=== PATIENT | male | born 1940 | race Hispanic/Latino ===

== ENCOUNTER 2016-11-24 12:11 | Emergency (ER) | payer MEDICARE, BC ==
[2016-11-24 12:12] VITALS: BMI 23.6
[2016-11-24 13:42] LABS: HEMOGLOBIN 13.4 g/dL (12.0-18.0); MEAN CELL VOLUME 92.8 fL (80.0-94.0); MEAN CORPUSCULAR HEMOGLOBIN 30.6 pg (27.0-31.0); MEAN CORPUSCULAR HGB CONC 32.9 g/dL (33.0-37.0); MEAN PLATELET VOLUME 8.2 fL (7.2-11.7); RBC 4.4 Mil/uL (4.40-5.90); RED CELL DISTRIBUTION WIDTH 12.6 % (11.5-14.5); WHITE BLOOD COUNT 8.1 K/uL (4.8-10.8)
[2016-11-24 13:52] LABS: ALBUMIN 3.7 g/dL (3.5-5.0)
[2016-11-24 13:55] LABS: AST/SGOT 21 U/L (17-59); GFR AFRICAN-AMERICAN > 60; GFR NON-AFRICAN AMERICAN > 60
[2016-11-24 13:56] LABS: ALB/GLOB RATIO 1.1 (1.0-2.1); ALT/SGPT 21 U/L (21-72); BLOOD UREA NITROGEN 18 mg/dL (9-20); CALCIUM 8.9 mg/dl (8.6-10.4)
--- NOTE | 2016-11-24 14:07 | CT ---
PROCEDURE: CT HEAD WITHOUT CONTRAST. HISTORY: R/O HEAD INJURY COMPARISON: None available. TECHNIQUE: Axial computed tomography images were obtained through the head/brain without intravenous contrast. Radiation dose: Total exam DLP = 1008.66 mGy-cm. This CT exam was performed using one or more of the following dose reduction techniques: Automated exposure control, adjustment of the mA and/or kV according to patient size, and/or use of iterative reconstruction technique. FINDINGS: HEMORRHAGE: No intracranial hemorrhage. BRAIN: There is focal cystic encephalomalacia in the right posterior frontal and parietal lobes with volume loss. There are mild chronic microangiopathic changes. There are old infarctions in the right basal ganglia and caudate nucleus. There is no mass, mass effect or abnormal extra-axial fluid collection. VENTRICLES: There is moderate age-related global parenchymal volume loss and proportionate enlargement of the ventricles and cortical sulci. There are small bilateral in convexity chronic subdural hygromas CALVARIUM: There is no calvarial fracture. There is a small posterior parietal scalp hematoma. PARANASAL SINUSES: There is mild polypoid mucosal thickening in the right maxillary sinus. The remaining included paranasal sinuses are predominantly clear. MASTOID AIR CELLS: Predominantly clear. OTHER FINDINGS: None. IMPRESSION: No acute intracranial abnormality. Small posterior scalp hematoma Mild chronic microangiopathic changes and moderate age-related global parenchymal volume loss. Cystic encephalomalacia in the right frontal and parietal lobes, sequela of remote MCA territory infarctions. Old infarctions in the right basal ganglia and caudate nucleus.
--- NOTE | 2016-11-24 14:24 | CT ---
PROCEDURE: CT Cervical Spine without contrast HISTORY: Head injury COMPARISON: None available. TECHNIQUE: Axial computed tomography images were obtained of the cervical spine without the use of intravenous contrast. Coronal and sagittal reformatted images were created and reviewed. Radiation dose: Total exam DLP = 1008.66 MGy-cm. This CT exam was performed using one or more of the following dose reduction techniques: Automated exposure control, adjustment of the mA and/or kV according to patient size, and/or use of iterative reconstruction technique. FINDINGS: VERTEBRAE: There is 3.2 mm retrolisthesis of C2 on C3. There is straightening of the cervical spine with loss of normal cervical lordosis. There is diffuse bone demineralization. There is a transverse lucency at the base of the odontoid process best identified on image 53 of series 601, sagittal reformatted images. No prevertebral soft tissue swelling. The craniocervical junction is normal. The atlantoaxial joint is normal. DISCS/SPINAL CANAL/NEURAL FORAMINA: There is multilevel degenerative disc disease due to combination of disc osteophyte complexes, uncovertebral joint hypertrophy and advanced multilevel left-sided facet arthropathy with resultant variable degree of moderate to severe left-sided neural foraminal stenosis. No spinal canal stenosis. Discs heights are grossly preserved. PARASPINAL SOFT TISSUES: The paraspinous soft tissues are normal. OTHER FINDINGS: None. IMPRESSION: 1. No acute displaced fracture. Transverse lucency at the base of the odontoid process is likely artifactual and related to demineralized bone, a nondisplaced fracture is not entirely excluded however less likely in the absence of prevertebral soft tissue swelling. If clinically indicated, an MRI of the cervical spine may be performed for further evaluation. 2. Straightening of the cervical spine may be positional or related to muscle spasm. 3. Multilevel degenerative disc disease with advanced left-sided facet arthropathy and variable degree of moderate to severe left neural foraminal stenosis. No spinal canal stenosis.
[2016-11-24 23:38] LABS: URINE BILIRUBIN NEGATIVE (NEGATIVE); URINE BLOOD NEGATIVE (NEGATIVE); URINE CLARITY Clear (Clear); URINE COLOR Yellow (YELLOW); URINE GLUCOSE (UA) NORMAL (Normal); URINE LEUKOCYTE ESTERASE 2+ Leu/uL (Negative); URINE NITRATE NEGATIVE (NEGATIVE); URINE PROTEIN 1+ mg/dL (NEGATIVE); URINE UROBILINOGEN NORMAL mg/dL (0.2-1.0)
== END 2016-11-24 17:00 | disposition home or self-care (01) ==
LOC: C.ER 12:11
DX: S00.01XA Abrasion of scalp, initial encounter (principal); W18.39XA Other fall on same level, initial encounter; Y93.01 Activity, walking, marching and hiking; Y92.480 Sidewalk as the place of occurrence of the external cause

== ENCOUNTER 2016-12-17 05:16 | Inpatient (IN) | payer MEDICARE, BC ==
[2016-12-17 05:17] VITALS: BMI 23.6
[2016-12-17] MEDS ORDERED: Morphine 4 MG/ML VIAL IV ONE (05:43)
--- NOTE | 2016-12-17 06:06 | C.PDOC ---
Addendum entered and electronically signed by Kaylie Sue PA-C 12/17/16 11: 12: Decision To Admit - Pt Status Changed To: Hospital Disposition Of: Inpatient - Admit Certification Admit to Inpatient:: After my assessment, the patient will require hospitalization for at least two midnights. This is because of the severity of symptoms shown, intensity of services needed, and/or the medical risk in this patient being treated as an outpatient. - InPatient: Physician Admission Certification: I certify that this patient requires 2 or more midnights of care for the following reason:: will need more than 2 days in the hospital - . Bed Request Type: Telemetry Admitting Physician: Kendall Gonzalez Patient Diagnosis: Dizziness, Dislocation of left shoulder joint, Head injury, UTI (urinary tract infection), Syncope and collapse Disposition Clinical Impression: Dislocation of left shoulder joint, Head injury, UTI (urinary tract infection) , Syncope and collapse Disposition: HOSPITALIZED Disposition Time: 11:09 Condition: FAIR Addendum Addendum: 12/17/16 11:10 Patient was signed out to me at 7 am, pending CT head and dispo. CT head was read as negative for acute abnormalities. UA is pos for UTI. Urine culture and Cipro IV ordered. Case was d/w patient's PMD who requested lactic acid to be ordered and requested to admit patient to Telemetry. Original Note: History Of Present Illness <Vanda Chung - Last Filed: 12/17/16 06:27> <Kaylie Sue - Last Filed: 12/17/16 11:06> <Adan Henry - Last Filed: 12/17/16 18:22> A 76 y/o male BIBEMS with c/o pain and deformity to the left shoulder that occurred [employer]. 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 Pt reports possibly hitting his head but denies LOC. Denies DA SILVA, numbness, or any other complaints. (Vanda Chung) - HPI History Per: Patient History/Exam Limitations: no limitations Onset/Duration Of Symptoms: Hrs Location Of Injury: Left: Shoulder Severity: Mild Recent travel outside of the [place]: No Additional History Per: Patient - Fall Fall:Prior To Injury: Tripped <Vanda Chung - Last Filed: 12/17/16 06:27> <Kaylie Sue - Last Filed: 12/17/16 11:06> <Adan Henry - Last Filed: 12/17/16 18:22> - HPI Time Seen by Provider: 12/17/16 05:37 Chief Complaint (Nursing): Trauma Past Medical History Reviewed: Historical Data, Nursing Documentation, Vital Signs - Medical History PMH: Anxiety, Atrial Fibrillation, Cardia Arrhythmia (atrial flutter with reentrant pathways, SVT), Fractures (LOW BACK), HTN, Hypercholesterolemia, Peripheral Edema, TIA Surgical History: Carotid Endarterectomy (RIGHT), Endoscopy, Tonsillectomy Family History: States: Unknown Family Hx - Social History Hx Tobacco Use: No Hx Alcohol Use: No - Immunization History Hx Tetanus Toxoid Vaccination: No Hx Influenza Vaccination: No Hx Pneumococcal Vaccination: No <Vanda Chung - Last Filed: 12/17/16 06:27> Review Of Systems Constitutional: Negative for: Other (Head trauma) Eyes: Negative for: Vision Change Musculoskeletal: Positive for: Shoulder Pain (Left) Skin: Positive for: Bruising (left hand) Neurological: Positive for: Weakness (generalized), Other (head injury). Negative for: Numbness <Vanda Chung - Last Filed: 12/17/16 06:27> Physical Exam - Physical Exam Appears: Non-toxic, No Acute Distress Skin: Warm, Dry Head: Atraumatic, Normacephalic Eye(s): bilateral: Normal Inspection Neck: Normal, No Midline Cervical Tenderness Chest: Symmetrical, No Tenderness Respiratory: Normal Breath Sounds, No Wheezing Gastrointestinal/Abdominal: Normal Exam, Soft Back: Normal Inspection, No CVA Tenderness, No Paraspinal Tenderness Extremity: No Normal ROM (Limited ROM of the left shoulder. Full ROM Rt shoulder and lower extremities.), Capillary Refill (<2secs), Deformity (obvious deformity of the left shoulder, (+) palpable grove to left lateral shoulder.), No Swelling (No swelling hematoma.), Other (Abrasion to the left dorsal hand. 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 Plans : Blood labs, Lt shoulder XR, head CT, EKG ordered. Tylenol Po, Morphine IV, Versed INJ. Shoulder reduction done by Dr Henry - ER attending and post reduction XR ordered <Vanda Chung - Last Filed: 12/17/16 06:27> - Laboratory Results Result Diagrams: 12/17/16 06:43 12/17/16 06:43 <Adan Henry - Last Filed: 12/17/16 18:22> Procedure: Blank - Time Time Performed: 07:00 - Time Out Time Out: Side verified, Site verified, Patient ID confirmed - Procedure Procedure:: left shoulder reduction <Adan Henry - Last Filed: 12/17/16 18:22> Medical Decision Making <Vanda Chung - Last Filed: 12/17/16 06:27> <Kaylie Sue - Last Filed: 12/17/16 11:06> <Adan Henry - Last Filed: 12/17/16 18:22> Medical Decision Making: pt seen with pa. pt with possible syncope, and left should d/c. reduced under conscious sedation, neuro vasc intact, post reduction film shows adequate reduction. (Adan Henry) Disposition - Disposition Disposition Time: 06:59 <Vanda Chung - Last Filed: 12/17/16 06:27> <Kaylie Sue - Last Filed: 12/17/16 11:06> <Adan Henry - Last Filed: 12/17/16 18:22> - Disposition Disposition: HOSPITALIZED Condition: FAIR - Clinical Impression Clinical Impression: Dislocation of left shoulder joint, Head injury, UTI (urinary tract infection) , Syncope and collapse Critical Care Time - Scribe Statement The provider has reviewed the documentation as recorded by the Scribe <Vanda Chung - Last Filed: 12/17/16 06:27> <Kaylie Sue - Last Filed: 12/17/16 11:06> <Adan Henry - Last Filed: 12/17/16 18:22> - Scribe Statement Guerda beck All medical record entries made by the Scribe were at my direction and personally dictated by me. I have reviewed the chart and agree that the record accurately reflects my personal performance of the history, physical exam, medical decision making, and the department course for this patient. I have also personally directed, reviewed, and agree with the discharge instructions and disposition. (Vanda Chung) Disposition <Vanda Chung - Last Filed: 12/17/16 06:27> Disposition Time: 11:09 <Kaylie Sue - Last Filed: 12/17/16 11:06> <Adan Henry - Last Filed: 12/17/16 18:22> Clinical Impression: Dislocation of left shoulder joint, Head injury, UTI (urinary tract infection) , Syncope and collapse Disposition: HOSPITALIZED Condition: FAIR
[2016-12-17] MEDS ORDERED: Ketamine 50 mg/ml Inj (10 ml) ONE (06:10)
[2016-12-17] MEDS ORDERED: Midazolam 2 MG/2 ML VIAL IVP ONE (06:10)
[2016-12-17] MEDS ORDERED: Midazolam 2 MG/2 ML VIAL ONE (06:14)
[2016-12-17] MEDS ORDERED: Ketamine 50 mg/ml Inj (10 ml) IV ONE (06:41)
[2016-12-17 06:52] LABS: BASO # 0.1 K/uL (0.0-0.2); BASO % 0.4 % (0.0-2.0); EOS # 0.2 K/uL (0.0-0.7); EOS % 1.6 % (0.0-4.0); HEMATOCRIT 46.2 % (35.0-51.0); LYMPH # 2.3 K/uL (1.0-4.3); LYMPH % 16.7 % (20.0-40.0); MEAN CELL VOLUME 93.2 fL (80.0-94.0); MEAN CORPUSCULAR HEMOGLOBIN 31.1 pg (27.0-31.0); MEAN CORPUSCULAR HGB CONC 33.4 g/dL (33.0-37.0); MEAN PLATELET VOLUME 9.3 fL (7.2-11.7); MONO # 0.6 K/uL (0.0-0.8); MONO % 4.6 % (0.0-10.0); NRBC % 0.2 % (0.0-2.0); RED CELL DISTRIBUTION WIDTH 13.2 % (11.5-14.5)
[2016-12-17 07:01] LABS: BLOOD UREA NITROGEN 24 mg/dL (9-20); CALCIUM 9.4 mg/dl (8.6-10.4); CARBON DIOXIDE 24 mmol/L (22-30); CHLORIDE 101 mmol/L (98-107); GFR AFRICAN-AMERICAN > 60; GLUCOSE,RANDOM 169 mg/dL (75-110); SODIUM 141 mmol/L (132-148)
[2016-12-17 07:17] LABS: POTASSIUM 4.7 mmol/L (3.6-5.2)
--- NOTE | 2016-12-17 08:40 | CT ---
PROCEDURE: CT HEAD WITHOUT CONTRAST. HISTORY: fall, head injury COMPARISON: 11/24/2016 TECHNIQUE: Axial computed tomography images were obtained through the head/brain without intravenous contrast. Radiation dose: Total exam DLP = 951 mGy-cm. This CT exam was performed using one or more of the following dose reduction techniques: Automated exposure control, adjustment of the mA and/or kV according to patient size, and/or use of iterative reconstruction technique. FINDINGS: HEMORRHAGE: No intracranial hemorrhage. BRAIN: No mass effect or edema. Scattered focal lucencies in the subcortical and periventricular white matter suggestive for chronic microvascular ischemic change. Focal cystic encephalomalacia again noted in the right posterior frontal and parietal lobes with volume loss. Mild anterior right temporal lobe atrophy. Old infarctions in the right basal ganglia and caudate nucleus. VENTRICLES: Moderate age related global parenchymal volume loss and proportionate enlargement of the ventricles and cortical sulci. Prominence in the bilateral anterior middle cranial fossa. CALVARIUM: Unremarkable. PARANASAL SINUSES: Mild polypoid mucosal thickening in the right maxillary sinus. MASTOID AIR CELLS: Unremarkable as visualized. No inflammatory changes. OTHER FINDINGS: None. IMPRESSION: Cystic encephalomalacia in the right frontal and parietal lobes, likely the sequelae of remote MCA territory infarctions. Old infarctions in the right basal ganglia and caudate nucleus. Additional findings as above. If symptoms persists or there is concern for focal neurologic deficit, consider further evaluation with MRI.
--- NOTE | 2016-12-17 09:02 | RAD ---
HISTORY: fall COMPARISON: 08/06/2016. FINDINGS: LUNGS: There are low lung volumes. PLEURA: There is question of blunting both costophrenic angle, no pneumothorax apparent. CARDIOVASCULAR: Normal. OSSEOUS STRUCTURES: No significant abnormalities. VISUALIZED UPPER ABDOMEN: Normal. OTHER FINDINGS: None. IMPRESSION: Question of small pleural effusions. Low lung volumes may be related to poor inspiratory effort.
[2016-12-17 09:30] LABS: RBC URINE 5 /hpf (0-3); URINE BACTERIA RARE (<OCC); URINE BILIRUBIN NEGATIVE (NEGATIVE); URINE BLOOD NEGATIVE (NEGATIVE); URINE COLOR Yellow (YELLOW); URINE GLUCOSE (UA) 2+ mg/dL (Normal); URINE KETONE TRACE mg/dL (NEGATIVE); URINE LEUKOCYTE ESTERASE 3+ Leu/uL (Negative); URINE PROTEIN 1+ mg/dL (NEGATIVE); URINE UROBILINOGEN NORMAL mg/dL (0.2-1.0); WBC URINE 193 /hpf (0-5)
[2016-12-17] MEDS ORDERED: Ciprofloxacin 400mg/200ml D5W 400 MG/200 ML BAG IV STA (10:24)
[2016-12-17 11:42] LABS: VENOUS BLOOD GAS BASE EXCESS 1.7 mmol/L (0.0-2.0); VENOUS BLOOD GAS PCO2 48 mmHg (40-60); VENOUS BLOOD PH 7.37 (7.32-7.43)
[2016-12-17 12:54] LABS: MAGNESIUM 1.8 mg/dL (1.6-2.3); PHOSPHOROUS 3.1 mg/dL (2.5-4.5)
--- NOTE | 2016-12-17 13:30 | RAD ---
Left shoulder three views History: Fall. Comparison: None available. Findings: Anterior dislocation of the proximal humerus in relationship to the bony glenoid. Acromioclavicular joint space appears preserved. Impression: Anterior dislocation of the proximal humerus in relationship to the bony glenoid.
--- NOTE | 2016-12-17 13:39 | RAD ---
Left shoulder two views History: Postreduction. Comparison: 12/17/2016 Findings: Status post reduction of the left humerus. Cortical productive change and or mild cortical irregularity at the margin of the left inferior bony glenoid and scapula. Clinical correlation. Correlation with CT or MR may be helpful if clinically indicated. Moderate acromioclavicular joint space degenerative changes. Impression: Status post reduction of the left humerus. Cortical productive change and or mild cortical irregularity at the margin of the left inferior bony glenoid and scapula. Clinical correlation. Correlation with CT or MR may be helpful if clinically indicated. Moderate acromioclavicular joint space degenerative changes.
--- NOTE | 2016-12-17 21:40 | CP.PCM.HP ---
History of Present Illness - History of Present Illness History of Present Illness: cc: s/p fall with L shoulder dislocation HPI: Pt is a 76 yo male who, for the last few months, has been having repeated falls in various setting resulting in injuries or fractures of vital bony parts. At the last admission (which was at [facility]), pt was noted to be in afib as well as in severe pain after he fractured his 1st lumbar vertebra at the time. Neurosurgical consult obtained at the time only advised putting a back brace on the patient. Since pt had made known to me that he wanted everything done to keep him alive with some semblance of a quality of life, I made it a point to make sure that his quality of life did not suffer. Hence, when the ablation was finally done, pt was rushed [facility] where IR agreed do a vertebroplasty of the affected vertabra, with greatq results. > Pt had not had any falls since then that this author is aware. Pt called the office early this morning to inform us that he was going to the ER bec of extreme L arm pain. Pt found to have dislocated his L shoulder, and the Surgery service performed a closed reduction successfully. Prior to today's fall, pt was noted by an office staff to be walking on the street without his glasses, and appeared to have a shuffling gait. Patient though, had not been observed with this gait since his last visit a few weeks ago. > Pt is currently admitted to telemetry and consults will be obtained to figure out the cause of patient's frequent falls. Present on Admission - Present on Admission Any Indicators Present on Admission: No History of DVT/PE: No History of Uncontrolled Diabetes: No Urinary Catheter: No (performs urethral sounding once daily) Decubitus Ulcer Present: No Past Patient History - Tetanus Immunizations Tetanus Immunization: Up to Date - Past Medical History & Family History Past Medical History?: Yes Past Family History: Reviewed and not pertinent - Past Social History Smoking Status: Never Smoked Chewing Tobacco Use: No Cigar Use: No - CARDIAC Hx Atrial Fibrillation: Yes Hx Cardia Arrhythmia: Yes (atrial flutter with reentrant pathways, SVT) Hx Hypercholesterolemia: Yes Hx Hypertension: Yes Hx Peripheral Edema: Yes - PULMONARY Hx Respiratory Disorders: No - NEUROLOGICAL Hx Neurological Disorder: No Hx Transient Ischemic Attacks (TIA): Yes - HEENT Hx HEENT Problems: Yes Hx Cataracts: Yes ([place] Hx Difficulty Chewing: Yes (CARIES NEEDS DENTAL ATTENTION) - RENAL Other/Comment: catheterize himself daily - ENDOCRINE/METABOLIC Hx Endocrine Disorders: No - HEMATOLOGICAL/ONCOLOGICAL Hx Blood Disorders: No - INTEGUMENTARY Hx Dermatological Problems: No - MUSCULOSKELETAL/RHEUMATOLOGICAL Hx Falls: Yes - GASTROINTESTINAL Hx Gastrointestinal Disorders: Yes Hx Gastroesophageal Reflux: Yes Hx Ulcer: Yes - GENITOURINARY/GYNECOLOGICAL Hx Genitourinary Disorders: Yes (NEUROGENIC BLADDER) Hx Incontinence: Yes 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) - PSYCHIATRIC Hx Anxiety: Yes Hx Substance Use: No - SURGICAL HISTORY Hx Carotid Endarterectomy: Yes (RIGHT) Hx Tonsillectomy: Yes - ANESTHESIA Hx Anesthesia: Yes Hx Anesthesia Reactions: Yes (UNCONTROLLABLE SHAKING/AFTER PROSTATE SURGERY) Hx Malignant Hyperthermia: No Meds Allergies/Adverse Reactions: Allergies Allergy/AdvReac Type Severity Reaction Status Date / Time Penicillins Allergy RASH Verified 08/06/16 09:45 Physical Exam - Constitutional Appears: No Acute Distress - Head Exam Head Exam: NORMAL INSPECTION - Eye Exam Eye Exam: Normal appearance, PERRL Pupil Exam: NORMAL ACCOMODATION - ENT Exam ENT Exam: Normal Exam - Neck Exam Neck exam: Positive for: Normal Inspection - Respiratory Exam Respiratory Exam: Clear to Auscultation Bilateral, NORMAL BREATHING PATTERN - Cardiovascular Exam Cardiovascular Exam: REGULAR RHYTHM - GI/Abdominal Exam GI & Abdominal Exam: Normal Bowel Sounds - Rectal Exam Rectal Exam: Deferred - Extremities Exam Extremities exam: Negative for: calf tenderness, full ROM, joint swelling, normal capillary refill, normal inspection, pedal edema, tenderness, pedal pulses present - Back Exam Back exam: NORMAL INSPECTION - Neurological Exam Neurological exam: Abnormal Gait, CN II-XII Intact, Oriented x3 - Psychiatric Exam Psychiatric exam: Normal Affect, Normal Mood Additional comments: possible shuffling gait - Skin Skin Exam: Dry, Normal Color, Warm Results - Vital Signs Recent Vital Signs: Last Vital Signs Temp 98.2 F 12/17/16 16:17 Pulse 92 H 12/17/16 18:00 Resp 16 12/17/16 14:05 BP 142/76 12/17/16 16:17 Pulse Ox 94 L 12/17/16 16:17 - Labs Result Diagrams: 12/17/16 06:43 12/17/16 06:43 Labs: Laboratory Results - last 24 hr 12/17/16 12/17/16 12/17/16 11:39 12:40 12:40 ESR 7 pO2 24 L VBG pH 7.37 VBG pCO2 48 VBG HCO3 24.7 VBG Total CO2 29.2 H VBG O2 Sat (Calc) 49.4 VBG Base Excess 1.7 VBG Potassium 4.6 Sodium 141.0 Chloride 106.0 Glucose 198 H Lactate 3.5 H Lactic Acid Phosphorus 3.1 Magnesium 1.8 Venous Blood Potassium 4.6 12/17/16 16:14 ESR pO2 VBG pH VBG pCO2 VBG HCO3 VBG Total CO2 VBG O2 Sat (Calc) VBG Base Excess VBG Potassium Sodium Chloride Glucose Lactate Lactic Acid 2.7 H Phosphorus Magnesium Venous Blood Potassium Assessment & Plan (1) Dislocation of left shoulder joint Assessment and Plan: closed reduction, will monitor for complications Status: Acute (2) Dizziness Assessment and Plan: was component of falls in the past but not today's and not consistently Status: Suspected (3) Syncope and collapse Assessment and Plan: did not apparently lose consciousness in all of patient's falls. seizure? vertebrobasilar insuff? since this appears to be a balance issues, a vestibular issue? or a vascular supply to the vestibular appparatus that is acting up? Status: Acute (4) UTI (urinary tract infection) Assessment and Plan: 2ndry to bladder soundings, but urosepsis to cuase dizziness and falls? or vasovagal loss of control? Status: Chronic Decision To Admit - Admit Certification Admit to Inpatient:: Admit to inpatient telemetry to ascertain the cause of patient's loss of balance and rule out a cardiac etiology. Because of the multiple injuries pt has already suffered extensive inpatient work up needs to be done to unmask the cause of patient's falls which will take more than 2 nights of stay. - InPatient: Physician Admission Certification:: Because of the severity of the patient's history and and the multple falls he has sufered, pt needs at least 2 nights inpatient stay to analyze why atient is falling all the time. - . Bed Request Type: Telemetry Admitting Physician: Kendall Gonzalez
--- NOTE | 2016-12-17 21:41 | CP.PCM.CON ---
History of Present Illness - History of Present Illness History of Present Illness: This is a 89 y/o male known to me in the past who was admitted after a fal. Patient describes that he woke up early in the morning and got out of bed because he felt too cold. He adjusted the settings of his air conditioner and as he proceeded to go back to bed, he found himself falling and couldn't stop it. His L shoulder hit the wall and he fell down on his L arm. He was then unable to get up the floor until the paramedics came. He was brought to the ER and was found to have a dislocated L shoulder. He denies any dizzy spell. He denies any syncope, palpitations, chest pain or shortness of breath. On reviewing the patien's history, he has had a few falls in the past 3 years and at one time it happened while he was walking on the street, he denies tripping on anything and has been injuring himself whenever he falls. He denies any palpitations, or loss of consciousness with each fall. he claims that he does not have any warning sign and just all of a sudden finds himself falling or on the floor. There is no witnessed seizure or awareness of any seizure occurring anytime.He has history of paroxysmal atrial fib with rvr 2x in the past year during which times, he felt completely asymptomatic with no history of dizziness or fall. He went for ablation about 6 months ago done at [place] [facility] Review of Systems - Constitutional Constitutional: Frequent Falls, Weakness - Cardiovascular Cardiovascular: Dyspnea on Exertion, Palpitations - Neurological Neurological: Frequent Falls, Weakness Past Patient History - Past Medical History & Family History Past Medical History?: Yes - Past Social History Smoking Status: Never Smoked Chewing Tobacco Use: No Cigar Use: No Alcohol: Social Home Situation {Lives}: Friends - CARDIAC Hx Atrial Fibrillation: Yes Hx Cardia Arrhythmia: Yes (atrial flutter with reentrant pathways, SVT) Hx Hypercholesterolemia: Yes Hx Hypertension: Yes Hx Peripheral Edema: Yes - PULMONARY Hx Respiratory Disorders: No - NEUROLOGICAL Hx Neurological Disorder: No Hx Transient Ischemic Attacks (TIA): Yes - HEENT Hx HEENT Problems: Yes Hx Cataracts: Yes ([place] Hx Difficulty Chewing: Yes (CARIES NEEDS DENTAL ATTENTION) - RENAL Other/Comment: catheterize himself daily - ENDOCRINE/METABOLIC Hx Endocrine Disorders: No - HEMATOLOGICAL/ONCOLOGICAL Hx Blood Disorders: No - INTEGUMENTARY Hx Dermatological Problems: No - MUSCULOSKELETAL/RHEUMATOLOGICAL Hx Falls: Yes - GASTROINTESTINAL Hx Gastrointestinal Disorders: Yes Hx Gastroesophageal Reflux: Yes Hx Ulcer: Yes - GENITOURINARY/GYNECOLOGICAL Hx Genitourinary Disorders: Yes (NEUROGENIC BLADDER) Hx Incontinence: Yes 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) - PSYCHIATRIC Hx Anxiety: Yes Hx Substance Use: No - SURGICAL HISTORY Hx Surgeries: No Hx Carotid Endarterectomy: Yes (RIGHT) Hx Tonsillectomy: Yes - ANESTHESIA Hx Anesthesia: Yes Hx Anesthesia Reactions: Yes (UNCONTROLLABLE SHAKING/AFTER PROSTATE SURGERY) Hx Malignant Hyperthermia: No Meds Allergies/Adverse Reactions: Allergies Allergy/AdvReac Type Severity Reaction Status Date / Time Penicillins Allergy RASH Verified 08/06/16 09:45 - Medications Medications: Current Medications Acetaminophen (Tylenol 325mg Tab) 2 mg PO Q4H PRN PRN Reason: Pain, Mild (1-3) Methenamine Hippurate (Hiprex) 0.001 gm PO BID FRANK Metoprolol Tartrate (Lopressor) 25 mg PO BID FRANK Polyethylene Glycol (Miralax) 17 gm PO HS PRN PRN Reason: Constipation Rosuvastatin Calcium (Crestor) 10 mg PO HS [facility]ANK Zolpidem Tartrate (Ambien) 5 mg PO HS PRN PRN Reason: Insomnia Last Admin: 12/17/16 21:15 Dose: 5 mg Zolpidem Tartrate (Ambien) 1 mg PO HS PRN PRN Reason: Insomnia Physical Exam - Constitutional Appears: Well, No Acute Distress - Head Exam Head Exam: NORMAL INSPECTION - Eye Exam Eye Exam: EOMI, Normal appearance, PERRL - ENT Exam ENT Exam: Mucous Membranes Moist - Neck Exam Neck exam: Positive for: Normal Inspection - Respiratory Exam Respiratory Exam: Chest Wall Tenderness, Clear to Auscultation Bilateral, Rales - Cardiovascular Exam Cardiovascular Exam: REGULAR RHYTHM - GI/Abdominal Exam GI & Abdominal Exam: Pulsatile Mass - Exam Exam: NORMAL INSPECTION External exam: Swelling - Back Exam Back exam: NORMAL INSPECTION Results - Vital Signs Recent Vital Signs: Last Vital Signs Temp 98.2 F 12/17/16 16:17 Pulse 92 H 12/17/16 18:00 Resp 16 12/17/16 14:05 BP 142/76 12/17/16 16:17 Pulse Ox 94 L 12/17/16 16:17 - Labs Result Diagrams: 12/17/16 06:43 12/17/16 06:43 Labs: Laboratory Results - last 24 hr 12/17/16 12/17/16 12/17/16 11:39 12:40 12:40 ESR 7 pO2 24 L VBG pH 7.37 VBG pCO2 48 VBG HCO3 24.7 VBG Total CO2 29.2 H VBG O2 Sat (Calc) 49.4 VBG Base Excess 1.7 VBG Potassium 4.6 Sodium 141.0 Chloride 106.0 Glucose 198 H Lactate 3.5 H Lactic Acid Phosphorus 3.1 Magnesium 1.8 Venous Blood Potassium 4.6 12/17/16 16:14 ESR pO2 VBG pH VBG pCO2 VBG HCO3 VBG Total CO2 VBG O2 Sat (Calc) VBG Base Excess VBG Potassium Sodium Chloride Glucose Lactate Lactic Acid 2.7 H Phosphorus Magnesium Venous Blood Potassium Assessment & Plan - Assessment and Plan (Free Text) Assessment: 1) recurrent Falls with no warning symptoms prior to the event. ardiac workup has been done in the past and found to be completely normal. Will check echo and carotid duplex and telemetry monitoring for now. Consider neurology consultation and possibility of finding out cause of these tests. Will also try on atenolol 25 mg. 2) Dislocated shoulder- reduced under anesthesia today. 3) Paroxysmal Atrial fib- no recurrence of atrial fib and currently running around 85- 110. Will start on low dose metoprolol 4)
[2016-12-17] MEDS: Ciprofloxacin 400mg/200ml D5W 400 MG/200 ML BAG IVPB SCH (22:05)
[2016-12-18 06:34] LABS: BASO % 0.4 % (0.0-2.0); EOS # 0.2 K/uL (0.0-0.7); EOS % 2.2 % (0.0-4.0); HEMATOCRIT 45.1 % (35.0-51.0); LYMPH # 1.9 K/uL (1.0-4.3); MEAN CELL VOLUME 93.6 fL (80.0-94.0); MEAN CORPUSCULAR HEMOGLOBIN 31.9 pg (27.0-31.0); MEAN CORPUSCULAR HGB CONC 34.1 g/dL (33.0-37.0); MEAN PLATELET VOLUME 9.9 fL (7.2-11.7); MONO # 0.7 K/uL (0.0-0.8); MONO % 6.1 % (0.0-10.0); NRBC % 0.1 % (0.0-2.0); RED CELL DISTRIBUTION WIDTH 12.8 % (11.5-14.5); WHITE BLOOD COUNT 10.7 K/uL (4.8-10.8)
[2016-12-18 06:48] LABS: ALB/GLOB RATIO 1.1 (1.0-2.1); ALKALINE PHOSPHATASE 56 U/L (38-126); ALT/SGPT 25 U/L (21-72); AST/SGOT 30 U/L (17-59); BILIRUBIN,TOTAL 1.1 mg/dL (0.2-1.3); BLOOD UREA NITROGEN 15 mg/dL (9-20); CALCIUM 8.9 mg/dl (8.6-10.4); CARBON DIOXIDE 26 mmol/L (22-30); CHLORIDE 100 mmol/L (98-107); GFR AFRICAN-AMERICAN > 60; GLUCOSE,RANDOM 122 mg/dL (75-110); POTASSIUM 4.1 mmol/L (3.6-5.2); SODIUM 139 mmol/L (132-148)
[2016-12-18] MEDS: Ciprofloxacin 400mg/200ml D5W 400 MG/200 ML BAG IVPB SCH ×2 (10:22→21:17)
--- NOTE | 2016-12-18 16:16 | PCM.URO ---
Urology Progress Note - Objective Lab Results Last 24 Hours: Laboratory Results - last 24 hr 12/17/16 12/18/16 12/18/16 16:14 04:00 06:26 WBC RBC Hgb Hct MCV MCH MCHC RDW Plt Count MPV Neut % (Auto) Lymph % (Auto) [place] % (Auto) Eos % (Auto) Baso % (Auto) Neut # Lymph # [place] # Eos # Baso # Differential Comment Sodium 139 Potassium 4.1 Chloride 100 Carbon Dioxide 26 Anion Gap 18 BUN 15 Creatinine 0.8 Est GFR ( Amer) > 60 Est GFR (Non-Af Amer) > 60 Random Glucose 122 H Lactic Acid 2.7 H 1.7 Calcium 8.9 Total Bilirubin 1.1 AST 30 ALT 25 Alkaline Phosphatase 56 Total Creatine Kinase 499 H CK-MB (Mass) 2.02 Troponin I, Quant < 0.0120 Total Protein 7.0 Albumin 3.7 Globulin 3.3 Albumin/Globulin Ratio 1.1 12/18/16 06:26 WBC 10.7 RBC 4.82 Hgb 15.4 Hct 45.1 MCV 93.6 MCH 31.9 H MCHC 34.1 RDW 12.8 Plt Count 188 MPV 9.9 Neut % (Auto) 73.3 Lymph % (Auto) 18.0 L [place] % (Auto) 6.1 Eos % (Auto) 2.2 Baso % (Auto) 0.4 Neut # 7.8 H Lymph # 1.9 [place] # 0.7 Eos # 0.2 Baso # 0.0 Differential Comment Sodium Potassium Chloride Carbon Dioxide Anion Gap BUN Creatinine Est GFR ( Amer) Est GFR (Non-Af Amer) Random Glucose Lactic Acid Calcium Total Bilirubin AST ALT Alkaline Phosphatase Total Creatine Kinase CK-MB (Mass) Troponin I, Quant Total Protein Albumin Globulin Albumin/Globulin Ratio Intake & Output: Intake & Output 12/17/16 12/18/16 12/18/16 18:59 06:59 18:59 Intake Total 200 440 Output Total 450 900 Balance -250 -460 Intake: Intake, IV Amount 0 200 Right Forearm 0 200 Oral 200 240 Output: Urine 450 900 Urethral (Marshall) 450 900 Other: Voiding Method Indwelling Catheter # Bowel Movements 1 Vital Signs: Vital Signs - 24 hr 12/17/16 12/17/16 12/17/16 16:17 18:00 19:02 Temperature 98.2 F Pulse Rate 87 92 H 92 H Respiratory 15 Rate Blood Pressure 142/76 140/78 O2 Sat by Pulse 94 L 95 Oximetry 12/17/16 12/17/16 12/17/16 20:00 21:00 21:02 Temperature 98.2 F Pulse Rate 93 H 84 84 Respiratory 17 16 16 Rate Blood Pressure 150/78 O2 Sat by Pulse 92 L 94 L 91 L Oximetry 12/17/16 12/17/16 12/17/16 22:00 22:04 23:00 Temperature Pulse Rate 87 73 Respiratory 16 16 Rate Blood Pressure 150/78 O2 Sat by Pulse 97 95 Oximetry 12/17/16 12/18/16 12/18/16 23:02 00:00 00:07 Temperature 97.7 F Pulse Rate 73 70 67 Respiratory 9 L 15 17 Rate Blood Pressure 151/87 H 166/82 H O2 Sat by Pulse 95 95 95 Oximetry 12/18/16 12/18/16 12/18/16 01:00 01:03 02:00 Temperature Pulse Rate 86 64 66 Respiratory 11 L 12 10 L Rate Blood Pressure 126/77 O2 Sat by Pulse 95 92 L 97 Oximetry 12/18/16 12/18/16 12/18/16 03:00 03:03 04:00 Temperature 98 F Pulse Rate 59 L 60 64 Respiratory 11 L 22 13 Rate Blood Pressure 127/75 O2 Sat by Pulse 96 95 94 L Oximetry 12/18/16 12/18/16 12/18/16 04:04 05:00 05:02 Temperature Pulse Rate 65 71 69 Respiratory 13 13 14 Rate Blood Pressure 124/64 O2 Sat by Pulse 96 92 L Oximetry 12/18/16 12/18/16 12/18/16 06:00 07:00 07:02 Temperature Pulse Rate 69 64 63 Respiratory 10 L 12 13 Rate Blood Pressure 131/69 O2 Sat by Pulse 97 96 93 L Oximetry 12/18/16 12/18/16 12/18/16 08:00 09:00 09:13 Temperature 98 F Pulse Rate 73 81 73 Respiratory 14 16 18 Rate Blood Pressure 131/69 O2 Sat by Pulse 96 96 95 Oximetry 12/18/16 12/18/16 12/18/16 10:00 10:21 11:00 Temperature Pulse Rate 76 85 Respiratory 13 15 Rate Blood Pressure 131/69 O2 Sat by Pulse Oximetry 12/18/16 12/18/1612/18/17 11:07 12:00 13:00 Temperature Pulse Rate 78 72 104 H Respiratory 16 16 22 Rate Blood Pressure 100/68 O2 Sat by Pulse Oximetry
[2016-12-18] MEDS ORDERED: Tramadol 25 mg PO PRN (18:08)
--- NOTE | 2016-12-18 18:13 | CP.PCM.PN ---
Subjective - Date & Time of Evaluation Date of Evaluation: 12/18/16 Time of Evaluation: 18:13 - Subjective Subjective: Pt had his tests done that were scheduled for today. Awaiting Neuro opinion on pt for possible neurologic etiology of patients falls. 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 initial impression of possible cardiovascular vs infectious etiology not a prime consideration at this point. Though urine appears "dirty" upon initial collecction, awaiting culture results and pt had not had any corroborating infectious sepsis signs and symptoms. > Discharge planning initially discussed with pt who refuses to go to [facility] as he has not had a very good experience at any one of them (though nothing will make the pt happy, i think, except his own home). Objective - Vital Signs/Intake and Output Vital Signs (last 24 hours): Temp Pulse Resp BP Pulse Ox 98.2 F 82 20 124/77 97 12/18/16 17:25 12/18/16 17:25 12/18/16 17:25 12/18/16 18:07 12/18/16 17:25 Intake and Output: 12/18/16 12/18/16 06:59 18:59 Intake Total 440 500 Output Total 900 400 Balance -460 100 - Medications Medications: Current Medications Acetaminophen (Tylenol 325mg Tab) 650 mg PO Q4H PRN PRN Reason: Pain, Mild (1-3) Last Admin: 12/17/16 23:15 Dose: 650 mg Ciprofloxacin (Cipro 400mg/200ml Dsw) 400 mg in 200 mls @ 133 mls/hr IVPB Q12H [facility] Last Admin: 12/18/16 10:22 Dose: 133 mls/hr Methenamine Hippurate (Hiprex) 1 gm PO BID [facility] Last Admin: 12/18/16 18:07 Dose: 1 gm Metoprolol Tartrate (Lopressor) 25 mg PO BID [facility] Last Admin: 12/18/16 18:07 Dose: 25 mg Polyethylene Glycol (Miralax) 17 gm PO HS PRN PRN Reason: Constipation Rosuvastatin Calcium (Crestor) 10 mg PO HS [facility] Last Admin: 12/17/16 22:05 Dose: 10 mg Tramadol HCl (Ultram) 25 mg PO Q8 PRN PRN Reason: Pain, moderate (4-7) Zolpidem Tartrate (Ambien) 5 mg PO HS PRN PRN Reason: Insomnia Last Admin: 12/17/16 21:15 Dose: 5 mg - Labs Labs: 12/18/16 06:26 12/18/16 06:26 PT 11.1 SECONDS (9.7-12.2) 12/17/16 06:43 INR 1.0 12/17/16 06:43 APTT 30 SECONDS (21-34) 12/17/16 06:43 - Constitutional Appears: No Acute Distress - Head Exam Head Exam: NORMAL INSPECTION - Eye Exam Eye Exam: Normal appearance - ENT Exam ENT Exam: Normal Exam - Neck Exam Neck Exam: Normal Inspection - Respiratory Exam Respiratory Exam: Clear to Ausculation Bilateral, NORMAL BREATHING PATTERN - Cardiovascular Exam Cardiovascular Exam: REGULAR RHYTHM - GI/Abdominal Exam GI & Abdominal Exam: Normal Bowel Sounds - Rectal Exam Rectal Exam: Deferred - Extremities Exam Extremities Exam: Normal Inspection - Back Exam Back Exam: NORMAL INSPECTION - Neurological Exam Neurological Exam: Abnormal Gait Neuro motor strength exam: Left Upper Extremity: 3, Right Upper Extremity: 5, Left Lower Extremity: 5, Right Lower Extremity: 5 - Psychiatric Exam Psychiatric exam: Normal Affect, Normal Mood - Skin Skin Exam: Pallor (at distal ) Assessment and Plan (1) Loss of balance Assessment & Plan: rephrased prob list to reflect more accurately what pt claims happens to him with his falls Status: Acute (2) Dizziness Status: Resolved (3) Syncope and collapse Status: Resolved (4) UTI (urinary tract infection) Status: Resolved (5) Dislocation of left shoulder joint Status: Acute (6) Compression fracture of first lumbar vertebra Status: Chronic
--- NOTE | 2016-12-19 05:23 | CON ---
UROLOGY CONSULTATION REASON FOR CONSULTATION: Urinary tract infection. HISTORY OF PRESENT ILLNESS: Very pleasant gentleman he is 76-year-old. He had a fall, his shoulder is hurting. He is on intermittent catheterization and he is noted to have "urinary tract infection." Urology is consulted. PAST MEDICAL AND SURGICAL HISTORY: As listed on the chart, patient under the care of Dr. Kendall Gonzalez and other consultation of seeing in the patient. REVIEW OF SYSTEMS: Listed above. PHYSICAL EXAMINATION: ABDOMEN: Relatively soft. Marshall catheter is in place draining clear yellow urine. LABORATORY DATA: Labs are noted on the chart. Specifically, the white count upon the presentation was 14 and repeat white count today is 10.7, and hematocrit 45%. The BUN and creatinine are noted to the 24/0.9 and then a repeat is 15/0.8. DIAGNOSIS: Voiding dysfunction urinary retention. The urinalysis does show white cells, red cells, etc. Bacteria, the urine culture pending. From a urology standpoint, patient has a avoiding dysfunction and he is on intermittent catheterization. From a urology standpoint, the maintain the Marshall, antibiotics and then furthers plans will follow. Regarding shoulder and other issues these are to be see by the business management consultant. From a urology standpoint, now leave the Marshall and will discussed when to resume intermittent catheterization. Thank you for the urology consultation. Ebenezer Oconnell MD
--- NOTE | 2016-12-19 09:07 | CARD ---
APPROVED REPORT EKG Measurement Heart [id number] <Conclusion> Accelerated Junctional rhythm Nonspecific T wave abnormality Abnormal ECG
--- NOTE | 2016-12-19 09:44 | VASCLAB ---
PROCEDURE: HISTORY: s/p fall, dizziness COMPARISON: None available. TECHNIQUE: Grayscale and duplex Doppler evaluation of the cervical carotid and vertebral arteries were performed. The common carotid, carotid bifurcations and cervical Internal Carotid Artery (ICA) and proximal External Carotid Artery (ECA) were evaluated. The vertebral arteries were evaluated for gross patency and flow direction. Report prepared by Isaias La, BS, RVT FINDINGS: RIGHT CAROTID ARTERIES: 1. Common Carotid Artery: No significant focal plaque formation of the right common carotid artery. Maximum Peak Systolic velocity: 56 cm/sec: End-diastolic velocity 15 cm/sec. 2. Carotid Bifurcation: plaque formation. Maximum Peak Systolic velocity: cm/sec: End-diastolic velocity cm/sec. 3. Internal Carotid Artery: Minimal plaque formation of the right proximal ICA which does not result in hemodynamically significant stenosis. Plaque description: Heterogeneous 3.1. Proximal Segment: Peak systolic velocity 40 cm/sec: End-diastolic velocity 8 cm/sec - % stenosis 0-15% 3.2. Middle Segment: Peak systolic velocity 83 cm/sec: End-diastolic velocity 27 cm/sec - % stenosis 0-15% 3.3. Distal Segment: Peak systolic velocity 64 cm/sec: End-diastolic velocity 27 cm/sec - % stenosis 0-15% 4. External Carotid Artery: No significant focal plaque formation. Peak systolic velocity 95 cm/sec 5. ICA/CCA Ratio: 1.5 LEFT CAROTID ARTERIES: 1. Common Carotid Artery: No significant focal plaque formation of the left common carotid artery. Maximum Peak Systolic velocity: 109 cm/sec: End-diastolic velocity 30 cm/sec. 2. Carotid Bifurcation: plaque formation. Maximum Peak Systolic velocity: 82 cm/sec: End-diastolic velocity 22 cm/sec. 3. Internal Carotid Artery: Minimal plaque formation of the left proximal ICA which does not result in hemodynamically significant stenosis. Plaque description: Heterogeneous 3.1. Proximal Segment: Peak systolic velocity 60 cm/sec: End-diastolic velocity 25 cm/sec - % stenosis 0-15% 3.2. Middle Segment: Peak systolic velocity 90 cm/sec: End-diastolic velocity 33 cm/sec - % stenosis 0-15% 3.3. Distal Segment: Peak systolic velocity 90 cm/sec: End-diastolic velocity 39 cm/sec - % stenosis 0-15% 4. External Carotid Artery: No significant focal plaque formation. Peak systolic velocity 85 cm/sec 5. ICA/CCA Ratio: 0.8 VERTEBRAL ARTERIES: 1. Right Vertebral Artery: The right vertebral artery flow direction is antegrade. 2. Left Vertebral Artery: The left vertebral artery flow direction is antegrade. OTHER FINDINGS: 1. Right Brachial Blood pressure: mmHg. 2. Left Brachial Blood pressure: mmHg. IMPRESSION: RIGHT: Duplex scan does not suggest hemodynamically significant stenosis of the right extracranial carotid arteries. LEFT: Duplex scan does not suggest hemodynamically significant stenosis of the left extracranial carotid arteries.
[2016-12-19] MEDS: Ciprofloxacin 400mg/200ml D5W 400 MG/200 ML BAG IVPB SCH ×2 (10:15→21:15)
--- NOTE | 2016-12-19 21:04 | PCM.URO ---
Urology Progress Note - General General: No Complaints, Tolerating Diet - Subjective Abdominal Pain: No Flank Pain: No Nausea: No Vomiting: No Voiding Well: No (catheter in place) Hematuria: No Stone Passed: No Dsypnea: No Chest Pain: No Fever & Chills: No - Objective Lab Studies: Reviewed Intake & Output: Intake & Output 12/19/16 12/19/16 12/20/16 06:59 18:59 06:59 Intake Total 400 660 Output Total 800 500 Balance -400 160 Weight 163 lb 2.273 oz Intake: Intake, IV Amount 200 200 Right Hand 200 200 Oral 200 460 Output: Urine 800 500 Urethral (Marshall) 800 500 Other: # Bowel Movements 1 Vital Signs: Vital Signs - 24 hr 12/18/16 12/19/16 12/19/16 23:35 07:25 08:22 Temperature 97.7 F Pulse Rate 72 76 81 Respiratory 20 Rate Blood Pressure 110/70 O2 Sat by Pulse 96 Oximetry 12/19/16 12/19/16 12/19/16 10:13 12:00 13:04 Temperature Pulse Rate 83 78 Respiratory Rate Blood Pressure 110/70 O2 Sat by Pulse 98 Oximetry 12/19/16 12/19/16 12/19/16 15:44 17:00 18:47 Temperature 97.6 F Pulse Rate 70 76 75 Respiratory 20 Rate Blood Pressure 102/68 115/74 O2 Sat by Pulse 95 Oximetry 12/19/16 12/19/16 18:48 20:00 Temperature Pulse Rate 71 Respiratory Rate Blood Pressure 115/74 O2 Sat by Pulse Oximetry - Physical Exam Abdominal Exam: Soft, Non-Tender, Non-Distended Back: No CVA Tenderness Genitalia: Without Inflammation Urine Color: Clear, Yellow - Male Phallus: Normal Scrotum: Normal - Plan Catheter Care: Yes Ambulation - Out of Bed: Yes Intake & Output: Yes Additional Information: Imp: uti. chronic retention. P:On cipro, hiprex. rec trial of voiding. discussed w pt - Date & Time of Note Date: 12/19/16 Time: 21:04
--- NOTE | 2016-12-19 22:07 | CP.PCM.PN ---
Subjective - Date & Time of Evaluation Date of Evaluation: 12/19/16 Time of Evaluation: 22:06 - Subjective Subjective: > Pt sleeping but easily awakened after I approached his bedside. Advised that records state he wanted to go to [facility] which he vehemently denies. Informed pt it may be unsafe to d/c him home but he can be very stubborn. Pt will only go to [facility], do home PT. FYI: to [facility] is NOT my preferred [facility] of choice. Objective - Vital Signs/Intake and Output Vital Signs (last 24 hours): Temp Pulse Resp BP Pulse Ox 97.6 F 71 20 115/74 95 12/19/16 15:44 12/19/16 20:00 12/19/16 15:44 12/19/16 18:48 12/19/16 15:44 Intake and Output: 12/19/16 12/20/16 18:59 06:59 Intake Total 660 Output Total 500 Balance 160 - Medications Medications: Current Medications Acetaminophen (Tylenol 325mg Tab) 650 mg PO Q4H PRN PRN Reason: Pain, Mild (1-3) Last Admin: 12/19/16 21:22 Dose: 650 mg Ciprofloxacin (Cipro 400mg/200ml Dsw) 400 mg in 200 mls @ 133 mls/hr IVPB Q12H [facility] Last Admin: 12/19/16 21:15 Dose: 133 mls/hr Methenamine Hippurate (Hiprex) 1 gm PO BID [facility] Last Admin: 12/19/16 19:32 Dose: 1 gm Metoprolol Tartrate (Lopressor) 25 mg PO BID [facility] Last Admin: 12/19/16 18:48 Dose: 25 mg Polyethylene Glycol (Miralax) 17 gm PO HS PRN PRN Reason: Constipation Rosuvastatin Calcium (Crestor) 10 mg PO HS [facility] Last Admin: 12/19/16 21:15 Dose: 10 mg Tramadol HCl (Ultram) 25 mg PO Q8 PRN PRN Reason: Pain, moderate (4-7) Zolpidem Tartrate (Ambien) 5 mg PO HS PRN PRN Reason: Insomnia Last Admin: 12/18/16 21:20 Dose: 5 mg - Labs Labs: 12/18/16 06:26 12/18/16 06:26 PT 11.1 SECONDS (9.7-12.2) 12/17/16 06:43 INR 1.0 12/17/16 06:43 APTT 30 SECONDS (21-34) 12/17/16 06:43 - Constitutional Appears: No Acute Distress - Head Exam Head Exam: NORMAL INSPECTION - Eye Exam Eye Exam: Normal appearance Pupil Exam: NORMAL ACCOMODATION - ENT Exam ENT Exam: Mucous Membranes Moist - Neck Exam Neck Exam: Normal Inspection - Respiratory Exam Respiratory Exam: Clear to Ausculation Bilateral, NORMAL BREATHING PATTERN - Cardiovascular Exam Cardiovascular Exam: REGULAR RHYTHM - GI/Abdominal Exam GI & Abdominal Exam: Diminished Bowel Sounds - Rectal Exam Rectal Exam: Deferred - Extremities Exam Extremities Exam: Tenderness (L shoulder s/p dislocation, in binder; R elbow pain, + muscle spasms on forearm. ) - Back Exam Back Exam: NORMAL INSPECTION - Neurological Exam Neurological Exam: Alert, Awake, Oriented x3 Neuro motor strength exam: Left Upper Extremity: 0, Right Upper Extremity: 5, Left Lower Extremity: 5, Right Lower Extremity: 5 - Psychiatric Exam Psychiatric exam: Normal Affect, Normal Mood - Skin Skin Exam: Dry, Intact, Pallor (hands very pale) Assessment and Plan (1) Dislocation of left shoulder joint Assessment & Plan: mobilize L shoulder joint to prevent muscle atrophy. resume PT Status: Acute (2) Dizziness Assessment & Plan: awaiting neurologist: had tried several neurologists but none of thems eems to come to the hospital anymore; awaiting EEG result Status: Suspected (3) Syncope and collapse Assessment & Plan: still doubt this is primarily vascular syncopal in inature; working theory at this time is a vestibular issue with primary neurogenic focus/foci Status: Acute (4) UTI (urinary tract infection) Assessment & Plan: cultures negative. dc abx Status: Chronic
--- NOTE | 2016-12-20 09:54 | RAD ---
PROCEDURE: Radiographs of the left elbow. HISTORY: Pain after fall COMPARISON: No prior. FINDINGS: BONES: Bone alignment is normal. There is no acute displaced fracture or bone destruction. There is mild periarticular bone demineralization. JOINTS: Normal. No osteoarthritis. SOFT TISSUES: Normal. JOINT EFFUSION: None. OTHER FINDINGS: None IMPRESSION: No acute displaced fracture or dislocation.
--- NOTE | 2016-12-21 02:15 | EEG ---
DATE: 12/18/2016 EEG REPORT INTRODUCTION: This is a digitally recorded EEG monitoring using standard EEG montages. Background rhythm background activity of 9 Hz alpha activity in parietal and occipital region. The EEG activity is bilaterally symmetrical and synchronous. There is attenuation of the background activity on . No sleep recording was noted. Abnormal potential. No was seen. Photic stimulation and hyperventilation, photic stimulation did not reveal any abnormality. Hyperventilation was not performed. IMPRESSION: Normal electroencephalogram. No epileptiform activity seen in this electroencephalogram recording. Abida Savage MD
--- NOTE | 2016-12-21 07:07 | CP.PCM.CON ---
History of Present Illness - History of Present Illness History of Present Illness: CONSULT DICTATED WORK UP ON PROGRESS R/O PARA SAGITTAL LESION VS INFARCT MYELOPATHY SEVERE LARGE AND SMALL FIBER NEUROPATHY CAUDA EQUINA SYNDROME FALL PRECAUTION Past Patient History - Tetanus Immunizations Tetanus Immunization: Up to Date - Past Medical History & Family History Past Medical History?: Yes Past Family History: Reviewed and not pertinent - Past Social History Smoking Status: Never Smoked Chewing Tobacco Use: No Cigar Use: No - CARDIAC Hx Hypercholesterolemia: Yes Hx Hypertension: Yes - PULMONARY Hx Respiratory Disorders: No - NEUROLOGICAL Hx Neurological Disorder: No Hx Transient Ischemic Attacks (TIA): Yes - HEENT Hx HEENT Problems: Yes Hx Cataracts: Yes ([place] Hx Difficulty Chewing: Yes (CARIES NEEDS DENTAL ATTENTION) - RENAL Other/Comment: catheterize himself daily - ENDOCRINE/METABOLIC Hx Endocrine Disorders: No - HEMATOLOGICAL/ONCOLOGICAL Hx Blood Disorders: No - INTEGUMENTARY Hx Dermatological Problems: No - MUSCULOSKELETAL/RHEUMATOLOGICAL Hx Falls: Yes - GASTROINTESTINAL Hx Gastrointestinal Disorders: Yes Hx Gastroesophageal Reflux: Yes Hx Ulcer: Yes - GENITOURINARY/GYNECOLOGICAL Hx Genitourinary Disorders: Yes (NEUROGENIC BLADDER) Hx Incontinence: Yes 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) - PSYCHIATRIC Hx Anxiety: Yes Hx Substance Use: No - SURGICAL HISTORY Hx Carotid Endarterectomy: Yes (RIGHT) Hx Tonsillectomy: Yes - ANESTHESIA Hx Anesthesia: Yes Hx Anesthesia Reactions: Yes (UNCONTROLLABLE SHAKING/AFTER PROSTATE SURGERY) Hx Malignant Hyperthermia: No Meds Allergies/Adverse Reactions: Allergies Allergy/AdvReac Type Severity Reaction Status Date / Time Penicillins Allergy RASH Verified 08/06/16 09:45 - Medications Medications: Current Medications Acetaminophen (Tylenol 325mg Tab) 650 mg PO Q4H PRN PRN Reason: Pain, Mild (1-3) Last Admin: 12/20/16 21:43 Dose: 650 mg Ibuprofen (Motrin Tab) 600 mg PO Q6H PRN PRN Reason: Pain, moderate (4-7) Methenamine Hippurate (Hiprex) 1 gm PO BID [facility] Last Admin: 12/20/16 17:44 Dose: 1 gm Metoprolol Tartrate (Lopressor) 25 mg PO BID [facility] Last Admin: 12/20/16 17:42 Dose: 25 mg Polyethylene Glycol (Miralax) 17 gm PO HS PRN PRN Reason: Constipation Rosuvastatin Calcium (Crestor) 10 mg PO HS [facility] Last Admin: 12/20/16 21:41 Dose: 10 mg Tramadol HCl (Ultram) 25 mg PO Q8 PRN PRN Reason: Pain, moderate (4-7) Zolpidem Tartrate (Ambien) 5 mg PO HS PRN PRN Reason: Insomnia Last Admin: 12/20/16 21:43 Dose: 5 mg Results - Vital Signs Recent Vital Signs: Last Vital Signs Temp 97.0 F L 12/20/16 23:52 Pulse 59 L 12/21/16 00:52 Resp 20 12/20/16 23:52 BP 102/67 12/20/16 23:52 Pulse Ox 95 12/20/16 23:52 - Labs Result Diagrams: 12/18/16 06:26 12/18/16 06:26
[2016-12-21 08:10] LABS: FREE T4 0.96 ng/dL (0.78-2.19)
[2016-12-21 08:25] LABS: THYROID STIMULATING HORMONE 4.54 mIU/L (0.46-4.68)
[2016-12-21 09:01] LABS: FOLATE 6.6 ng/mL
--- NOTE | 2016-12-21 13:03 | MRI ---
PROCEDURE: MR CERVICAL SPINE WITHOUT CONTRAST wake HISTORY: myelopathy r/o hnp and path fx COMPARISON: None available. TECHNIQUE: Multiecho multiplanar sequences were performed through the cervical spine without the use of intravenous contrast. FINDINGS: There is mild degenerative retrolisthesis of C2 on C3. There is normal cervical lordosis. Vertebral height is normal. There are degenerative endplate marrow changes at C4-5. Otherwise, bone marrow signal is within normal limits. The craniocervical junction is normal. There is mild degenerative osteoarthrosis at the atlantoaxial joint. The cervical cord is normal in contour, caliber and has normal intrinsic signal. C2-C3: Disc osteophyte complex and mild bilateral facet arthropathy result in moderate right neural foraminal stenosis. No spinal canal stenosis. C3-C4: Disc osteophyte complex with superimposed left foraminal disc protrusion results in mild mass effect on the exiting left C4 nerve root and severe left neural foraminal stenosis. Moderate right facet arthropathy contributes to mild right neural foraminal stenosis. C4-C5: Broad-based disc osteophyte complex and severe left facet arthropathy result in severe left neural foraminal stenosis and probable mass effect on the exiting left C5 nerve root. Also noted is mild right neural foraminal stenosis. No central spinal canal stenosis. C5-C6: Broad-based central disc protrusion indents the ventral thecal sac and results in mild spinal canal stenosis. Moderate right and severe left facet arthropathy contribute to mild right and moderate left neural foraminal stenosis. C6-C7: Broad-based disc osteophyte complex with superimposed left foraminal and far-lateral disc protrusions result in mass effect on the exiting C7 nerve root. No spinal canal stenosis. C7-T1: Small left posterolateral disc protrusion without spinal canal stenosis. Also noted is severe left neural foraminal stenosis in part due to asymmetric left uncovertebral joint hypertrophy. OTHER FINDINGS: There is mild fatty atrophy of the paraspinous muscles. Incompletely imaged a presumable old lacunar infarctions in the left cerebellar hemisphere. IMPRESSION: 1. Multilevel degenerative disc disease due to combination of disc osteophyte complexes, uncovertebral joint hypertrophy and multilevel facet arthropathy, worse at C5-6 with a mild spinal canal stenosis, moderate right and severe left neural foraminal stenosis. 2. At C6-7 broad-based disc osteophyte complex with superimposed left foraminal and far lateral disc protrusions result in mass effect on the exiting left C7 nerve root. 3. Additional comments as described above.
--- NOTE | 2016-12-21 13:44 | MRI ---
PROCEDURE: MR LUMBAR SPINE WITHOUT CONTRAST HISTORY: cauda equina syndrome COMPARISON: None available. TECHNIQUE: Multiecho multiplanar sequences were performed through the lumbar spine without the use of intravenous contrast. FINDINGS: There is 4 mm degenerative anterior listhesis of L5 on S1. Lumbar lordosis is maintained. Vertebral bodies are normal in height. There is a subacute superior endplate compression fracture deformity in the L1 vertebral body with postsurgical changes of kyphoplasty. There is approximately 20 percent loss of anterior and central vertebral height and mild bone marrow edema in the middle and posterior 3rd of the vertebral body. No retropulsion. There are advanced degenerative endplate marrow changes at L5-S1. Otherwise bone marrow signal is within normal limits. The conus medullaris terminates at a normal level and the nerve roots of cauda equina are normal. T12-L1: Diffuse posterior disc bulge indents the ventral thecal sac without spinal canal stenosis. No neural foraminal stenosis. L1-2: Posterior disc bulge without central spinal canal stenosis mild bilateral facet arthropathy. No neural foraminal stenosis. L2-3: Diffuse posterior disc bulge without central spinal canal stenosis. Mild bilateral facet arthropathy contribute to mild neural foraminal stenosis. L3-4: Diffuse posterior disc bulge with superimposed foraminal disc protrusions and moderate bilateral facet contributes to moderate neural foraminal stenosis. L4-5: Broad-based central disc protrusion indents the ventral thecal sac and results in mild spinal canal stenosis. Severe bilateral facet arthropathy with facet joint effusions, worse on the left contributes to moderate to severe neural foraminal stenosis. L5-S1: Diffuse posterior disc bulge indents the ventral thecal sac and results in mild spinal canal stenosis. Severe bilateral facet arthropathy contribute to moderate neural foraminal stenosis. OTHER FINDINGS: The paraspinous soft tissues are normal. Imaged portion of the retroperitoneum is grossly within normal limits. IMPRESSION: 1. Status post kyphoplasty and superior endplate compression deformity in the L1 vertebral body. No retropulsion. 2. Multilevel degenerative disc disease, worse at L4-5 with a broad-based central disc protrusion and mild spinal canal stenosis. Also noted is severe bilateral facet arthropathy with facet joint effusions, worse on the left, and moderate to severe neural foraminal stenosis. 3. Additional comments as described above.
--- NOTE | 2016-12-21 14:07 | MRI ---
PROCEDURE: MRI BRAIN WITHOUT CONTRAST HISTORY: stroke Vs mass COMPARISON: Head CT 12/17/2016. TECHNIQUE: Multiplanar, multisequence MR images of the brain were obtained without intravenous contrast enhancement. FINDINGS: HEMORRHAGE: None DWI: No evidence of an acute or early subacute infarction. BRAIN PARENCHYMA: No mass effect or edema. Mild diffuse cerebral atrophy chronic microangiopathy are reiterated as well as chronic nodes at the right base a ganglia. VENTRICLES: Unremarkable. No hydrocephalus. CRANIUM: Unremarkable. ORBITS: Grossly unremarkable. PARANASAL SINUSES/MASTOIDS: Clear VASCULAR SYSTEM: Skull base flow voids intact. OTHER FINDINGS: None. IMPRESSION: No definite acute intracranial findings as discussed above. Limited age-related neuro degenerate changes are reiterated in the the current examination.
--- NOTE | 2016-12-21 15:44 | NM ---
PROCEDURE: Whole Body Bone Scan HISTORY: bony pathology -met COMPARISON: December 21, 2016. MRI lumbar spine TECHNIQUE: Following administration of 23.5 miCu of Tc MDP multiplanar whole body images were obtained. FINDINGS: Evidence for bony metastatic disease: None. Degenerative uptake: None. Physiologic uptake: Normal physiologic activity in the kidneys. Other findings: Increased uptake L1 vertebral body conforms to findings on concurrent MRI. This relates to known kyphoplasty. IMPRESSION: Abnormal uptake L1 vertebral body consistent with history of prior kyphoplasty and concordant findings are documented on MRI lumbar spine performed December 21, 2016. No other significant or suspicious abnormalities.
--- NOTE | 2016-12-21 15:51 | CON ---
DATE: 12/21/2016 REASON FOR CONSULTATION: Frequent fall. CHIEF COMPLAINT: The patient was brought into [facility] on 12/17/2016 with history of frequent fall. From Neurology point, I was called in to evaluate him for further management. HISTORY OF PRESENT ILLNESS: Mr. Brayden Saldana is a 76-year-old right-handed male presenting with frequent fall for the last 1 month. He could not able to recall why he has been falling. No warning by himself. After the fall, he could not get up by himself. One fall prior to the last fall, he broke his vertebra, which required surgical procedure to fix his lumbar area. This recent fall was worse than prior fall. He took an hour to reach his phone to call 911. He also admitted urinary incontinence for the last 3 years. He has been followed by urologist. He did transurethral resection of the prostate 2 years ago, however, the symptoms had never got improved. He has been hard of hearing. He denies any forgetfulness or memory loss. No headache, no visual or bulbar dysfunction. He denies any focal weakness. PAST MEDICAL HISTORY: Transient ischemic attack, cardiac arrhythmia, atrial flutter with recent admission. He also had a history of supraventricular tachycardia, hypercholesteremia, hypertension, and gastroesophageal reflux disease. PERSONAL HISTORY: Denies smoking, alcohol use. ALLERGIES: ALLERGIC TO PENICILLIN. REVIEW OF SYSTEMS: As per H&P. MEDICATIONS: Zolpidem, Crestor, methenamine hippurate, Lopressor, Miralax, Motrin, Tylenol, and tramadol. PHYSICAL EXAMINATION: VITAL SIGNS: Blood pressure 102/67, mean arterial pressure of 78, respiratory rate 16, temperature 97.0, pulse rate 59 and regular. NECK: Supple. No carotid bruits. HEART: Sounds regular. CHEST: Fair air entry. EXTREMITIES: No edema in legs. Right leg is externally rotated. NEUROLOGIC: Mental status examination; he is awake, alert, oriented to person, place, and time. Speech is clear. Naming, repetition, fluency, comprehension all within normal. CRANIAL NERVE EXAMINATION: Visual field intact. Pupils reactive to light. Extraocular movements decreased in all direction. No facial sensory deficit. No facial asymmetry. Hearing is moderately decreased on his both side, the right more than his left side. Tongue is midline. Good gag. MOTOR EXAMINATION: Left arm, recent correction of his dislocation. Pain limited exam on his left arm. Right arm, he denies any weakness, he could able to move up and down. He could able to lift both lower extremities against gravity. However, there is some problem of lifting his left leg more than his right leg. DEEP TENDON REFLEXES: Biceps, brachioradialis, and triceps are absent on both side. Right knee 2+, left knee absent, both ankles are absent. Plantars are equivocal response on both side. SENSORY EXAMINATION: Significantly decreased to pinprick, light touch, vibration and temperature sense and also position sense in both legs. He could not able to appreciate the movement of his big toes. COORDINATION: [id number] test is intact on his right side. ABDOMINAL REFLEX: Beevor's sign is negative. There is no significant sensory level on limited exam. CONCLUSION: 1. Upon reviewing his recent neurological examination, Mr. Brayden Saldana has been presenting with frequent fall with urinary incontinence, hearing loss without any loss of consciousness or raise the possibility of possible parasagittal lesion or stroke (arterial cerebral artery distribution) should be ruled out from central nervous system point of view. 2.The fall relating pathological fracture in the lumbar vertebrae, raise the possibility of frequent falls may hurt his neck, thoracic spine, which had not worked up and the same could be the cause for his falls though he does not have pain. 3. Cauda equina syndrome, urinary incontinence, raise a possibility of lumbosacral pathology. The patient also has significant history of numbness, tingling, sensation of his both lower extremities as his neuropathy is advanced involving both large fiber as well as small fiber neuropathy. This probably related to his systemic disease or infectious or inflammatory, paraneoplastic, or occult malignancy. RECOMMENDATION: 1. The patient should have MRI of the brain to rule out parasagittal lesion. 2. MRI of the cervical spine, thoracic spine, and lumbosacral spine to rule out focal pathology could explain for his myelopathy versus cauda equina syndrome. 3. Blood workup as per the order. 4. The patient in need of workup for the bone scan and workup for occult malignancy as requested. The patient should be kept on DVT prophylaxis if possible physical therapy should be started. Unwanted medication including zolpidem, which can induce parasomnia and frequent fall and tramadol also hidden factor for seizures. These two medications should be discontinued. The patient should be kept under close observation with fall precaution. Hernandez Vuong MD [facility]
[2016-12-21 19:48] LABS: CARCINOEMBRYONIC ANTIGEN 0.8 ng/mL (0-3.0); PROSTATE SPECIFIC ANTIGEN 1.66 ng/mL (0.00-4.0)
--- NOTE | 2016-12-21 23:43 | CP.PCM.PN ---
Subjective - Date & Time of Evaluation Date of Evaluation: 12/21/16 Time of Evaluation: 15:00 - Subjective Subjective: Pt seen by Neurology and work up in progress. Pt to get MRIs and bone scans to rule out any malignancy previously undetected. Will follow work up. So far all testing has been negative or any etiology that may account for the patient's frequent falls. (resulting in injury). Objective - Vital Signs/Intake and Output Vital Signs (last 24 hours): Temp Pulse Resp BP Pulse Ox 97.6 F 69 20 126/78 95 12/21/16 23:08 12/21/16 23:08 12/21/16 23:08 12/21/16 23:08 12/21/16 23:08 Intake and Output: 12/21/16 12/22/16 18:59 06:59 Intake Total 640 Output Total 350 Balance 640 -350 - Medications Medications: Current Medications Acetaminophen (Tylenol 325mg Tab) 650 mg PO Q4H PRN PRN Reason: Pain, Mild (1-3) Last Admin: 12/21/16 23:29 Dose: 650 mg Ibuprofen (Motrin Tab) 600 mg PO Q6H PRN PRN Reason: Pain, moderate (4-7) Methenamine Hippurate (Hiprex) 1 gm PO BID [facility] Last Admin: 12/21/16 18:56 Dose: 1 gm Metoprolol Tartrate (Lopressor) 25 mg PO BID [facility] Last Admin: 12/21/16 17:44 Dose: Not Given Polyethylene Glycol (Miralax) 17 gm PO HS PRN PRN Reason: Constipation Rosuvastatin Calcium (Crestor) 10 mg PO HS [facility] Last Admin: 12/21/16 21:56 Dose: 10 mg Tramadol HCl (Ultram) 25 mg PO Q8 PRN PRN Reason: Pain, moderate (4-7) Zolpidem Tartrate (Ambien) 5 mg PO HS PRN PRN Reason: Insomnia Last Admin: 12/21/16 23:29 Dose: 5 mg - Labs Labs: 12/18/16 06:26 12/18/16 06:26 PT 11.1 SECONDS (9.7-12.2) 12/17/16 06:43 INR 1.0 12/17/16 06:43 APTT 30 SECONDS (21-34) 12/17/16 06:43 - Constitutional Appears: No Acute Distress - Head Exam Head Exam: NORMAL INSPECTION - Eye Exam Eye Exam: Normal appearance Pupil Exam: NORMAL ACCOMODATION - ENT Exam ENT Exam: Normal Exam - Neck Exam Neck Exam: Normal Inspection - Respiratory Exam Respiratory Exam: Clear to Ausculation Bilateral, NORMAL BREATHING PATTERN - Cardiovascular Exam Cardiovascular Exam: REGULAR RHYTHM - GI/Abdominal Exam GI & Abdominal Exam: Normal Bowel Sounds - Rectal Exam Rectal Exam: Deferred - Exam Exam: NORMAL INSPECTION (+ marie catheter with leg bag) - Extremities Exam Extremities Exam: Normal Inspection - Back Exam Back Exam: NORMAL INSPECTION - Neurological Exam Neurological Exam: Abnormal Gait, Awake, CN II-XII Intact, Oriented x3 Neuro motor strength exam: Left Upper Extremity: 3, Right Upper Extremity: 5, Left Lower Extremity: 5, Right Lower Extremity: 5 - Psychiatric Exam Psychiatric exam: Normal Affect, Normal Mood - Skin Skin Exam: Pallor (on distal upper extremtiies) Assessment and Plan (1) Dizziness Assessment & Plan: Loss of balance more than dizziness. Pt does not perceive any lightheadedness or any sensation of the room spinnin. Status: Suspected (2) Syncope and collapse Assessment & Plan: no arrythmias nor syncopal/near syncopal episodes since admission Status: Acute (3) Dislocation of left shoulder joint Assessment & Plan: tolerating PT of LUE Status: Acute (4) UTI (urinary tract infection) Status: Resolved
--- NOTE | 2016-12-22 00:33 | CP.PCM.PN ---
Subjective - Date & Time of Evaluation Date of Evaluation: 12/20/16 Time of Evaluation: 13:20 - Subjective Subjective: Discussed case with Sales And Operations Trainee re: need for EEG to be read and neurologist input on pt's case. Awaiting consult results and testing, if any. Dearth of neurologists who practice inpatient impacting care. and LOS, bu it may also be prejudicial to pt's well-being should pt be discharged prematurely. Case Mgt working hard on getting euro opinion for us. Objective - Vital Signs/Intake and Output Vital Signs (last 24 hours): Temp Pulse Resp BP Pulse Ox 97.6 F 69 20 126/78 95 12/21/16 23:08 12/21/16 23:08 12/21/16 23:08 12/21/16 23:08 12/21/16 23:08 Intake and Output: 12/21/16 12/22/16 18:59 06:59 Intake Total 640 Output Total 350 Balance 640 -350 - Medications Medications: Current Medications Acetaminophen (Tylenol 325mg Tab) 650 mg PO Q4H PRN PRN Reason: Pain, Mild (1-3) Last Admin: 12/21/16 23:29 Dose: 650 mg Folic Acid (Folic Acid) 1 mg PO DAILY [facility] Ibuprofen (Motrin Tab) 600 mg PO Q6H PRN PRN Reason: Pain, moderate (4-7) Methenamine Hippurate (Hiprex) 1 gm PO BID [facility] Last Admin: 12/21/16 18:56 Dose: 1 gm Metoprolol Tartrate (Lopressor) 25 mg PO BID [facility] Last Admin: 12/21/16 17:44 Dose: Not Given Polyethylene Glycol (Miralax) 17 gm PO HS PRN PRN Reason: Constipation Rosuvastatin Calcium (Crestor) 10 mg PO HS [facility] Last Admin: 12/21/16 21:56 Dose: 10 mg Tramadol HCl (Ultram) 25 mg PO Q8 PRN PRN Reason: Pain, moderate (4-7) Zolpidem Tartrate (Ambien) 5 mg PO HS PRN PRN Reason: Insomnia Last Admin: 12/21/16 23:29 Dose: 5 mg - Labs Labs: 12/18/16 06:26 12/18/16 06:26 PT 11.1 SECONDS (9.7-12.2) 12/17/16 06:43 INR 1.0 12/17/16 06:43 APTT 30 SECONDS (21-34) 12/17/16 06:43 - Head Exam Head Exam: NORMAL INSPECTION, NORMOCEPHALIC - Eye Exam Eye Exam: Normal appearance Pupil Exam: NORMAL ACCOMODATION - ENT Exam ENT Exam: Normal Exam - Neck Exam Neck Exam: Normal Inspection - Respiratory Exam Respiratory Exam: Clear to Ausculation Bilateral - Cardiovascular Exam Cardiovascular Exam: REGULAR RHYTHM - GI/Abdominal Exam GI & Abdominal Exam: Normal Bowel Sounds - Rectal Exam Rectal Exam: Deferred - Extremities Exam Extremities Exam: Full ROM (except L UE post dislocation) - Back Exam Back Exam: NORMAL INSPECTION - Neurological Exam Neuro motor strength exam: Left Upper Extremity: 3, Right Upper Extremity: 5, Left Lower Extremity: 5, Right Lower Extremity: 5 - Psychiatric Exam Psychiatric exam: Normal Affect, Normal Mood - Skin Skin Exam: Pallor Additional comments: at distal upper extremities Assessment and Plan (1) Loss of balance Assessment & Plan: Neuro to see patient in AM Status: Acute (2) Dizziness Assessment & Plan: no new episodes Status: Resolved (3) Syncope and collapse Status: Resolved (4) UTI (urinary tract infection) Status: Resolved (5) Dislocation of left shoulder joint Status: Chronic (6) Compression fracture of first lumbar vertebra Status: Chronic
--- NOTE | 2016-12-22 07:37 | CP.PCM.PN ---
Subjective - Date & Time of Evaluation Date of Evaluation: 12/22/16 Time of Evaluation: 07:38 - Subjective Subjective: THE DOCUMENTATIONS WERE REVIEWED. PER THE ADMITTING PHYSICIAN'S ORDERS ON THE , IN THE PATIENT CHART, THE STEAM DRIER OPERATOR NEUROLOGIST () WAS NOT CALLED IN FOR CONSULTATION UNTIL . I SAW THE PATIENT EARLY IN THE MORNING ON THE AND THE APPROPRIATE WORK UP WAS ORDERED FROM A NEUROLOGIC STAND POINT. THE PROBLEM HERE IS THE DELAY IN RELAYING PMD'S ORDERS TO THE CONSULTATION PHYSICIAN. PLEASE DO NOT BLAME THE NEUROLOGIST BEFORE ACQUIRING THE ENTIRE STORY. I UNDERSTAND THIS IS AN IMPORTANT ISSUE AND IT MUST BE ADDRESSED. THE PROBLEM REMAINS TO BE, THE POOR COMMUNICATION OF CONSULT ORDERS TO THE CONSULTANTS. Objective - Vital Signs/Intake and Output Vital Signs (last 24 hours): Temp Pulse Resp BP Pulse Ox 97.6 F 63 20 126/78 95 12/21/16 23:08 12/21/16 23:30 12/21/16 23:08 12/21/16 23:08 12/21/16 23:08 Intake and Output: 12/22/16 12/22/16 06:59 18:59 Output Total 650 Balance -650 - Medications Medications: Current Medications Acetaminophen (Tylenol 325mg Tab) 650 mg PO Q4H PRN PRN Reason: Pain, Mild (1-3) Last Admin: 12/21/16 23:29 Dose: 650 mg Folic Acid (Folic Acid) 1 mg PO DAILY [facility] Ibuprofen (Motrin Tab) 600 mg PO Q6H PRN PRN Reason: Pain, moderate (4-7) Methenamine Hippurate (Hiprex) 1 gm PO BID [facility] Last Admin: 12/21/16 18:56 Dose: 1 gm Metoprolol Tartrate (Lopressor) 25 mg PO BID [facility] Last Admin: 12/21/16 17:44 Dose: Not Given Polyethylene Glycol (Miralax) 17 gm PO HS PRN PRN Reason: Constipation Rosuvastatin Calcium (Crestor) 10 mg PO HS [facility] Last Admin: 12/21/16 21:56 Dose: 10 mg Tramadol HCl (Ultram) 25 mg PO Q8 PRN PRN Reason: Pain, moderate (4-7) Zolpidem Tartrate (Ambien) 5 mg PO HS PRN PRN Reason: Insomnia Last Admin: 07/28/17 23:29 Dose: 5 mg - Labs Labs: 12/18/16 06:26 12/18/16 06:26 PT 11.1 SECONDS (9.7-12.2) 12/17/16 06:43 INR 1.0 12/17/16 06:43 APTT 30 SECONDS (21-34) 12/17/16 06:43
[2016-12-22] MEDS: POLYETHYLENE GLYCOL 3350 17 GM/Dose PACKET PO PRN (09:27)
--- NOTE | 2016-12-22 16:13 | PN ---
DATE: 12/22/2016 TIME OF EVALUATION: 12:55 p.m. 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 PHYSICAL EXAMINATION VITAL SIGNS: Blood pressure 124/78, mean arterial pressure of 100, pulse rate 72, respiratory rate 16, temperature afebrile. GENERAL: The patient seems to be asymptomatic at present, still he is in the bed. He has been getting physical therapy today. No urinary incontinence. No focal pain. Examination is unchanged compared with my yesterday's examination. WORKUP: MRI of the brain is being reviewed, multiple small vessel disease, no parasagittal lesion that could explain his leg weakness, gait disturbances and urinary incontinence (the central cause is ruled out). TSH is 4.54, B12 of 364, CEA 0.8, PSA 1.66, RPR nonreactive. Magnesium 1.8, phosphorus 3.1. Bone scan is reported as abnormal uptake at L1 vertebral body consistent with prior kyphoplasty. No further lengthening of the spine or any other bone lesion is noted. The MRI of the cervical spine reviewed, multilevel degenerative disk disease, which is worse at C5-C6 level with moderate form of stenosis. There is another level in C6-C7 broad based osteophytic complex superimposed with left foraminal as well as far lateral disk protrusion resulting in mass effect in neural foramen on left C7 root. There is no significant myelopathy noted. MRI of the lumbosacral spine showed multilevel degenerative disk disease, particularly worse at L4-L5 level with broad based disk herniation and stenosis. From the workup what you have did, his gait disturbances and fall all related to his neuropathy. RECOMMENDATION: Get him out of the bed and physical therapy should be started and reassurance should be given. The patient should be kept on fall precaution. EEG been reviewed and show no paroxysmal activities. The patient definitely needs electrodiagnostic studies including nerve conduction study and electromyography (it could be done as an outpatient). From neurological point of view, the patient is stable. If medically stable, the patient should be discharged to acute rehabilitation to improve his gait and strengthen his legs. Hernandez Vuong MD MTDDaniel
[2016-12-23] MEDS: POLYETHYLENE GLYCOL 3350 17 GM/Dose PACKET PO PRN ×2 (09:37→09:40)
--- NOTE | 2016-12-23 19:32 | CP.PCM.PN ---
Subjective - Date & Time of Evaluation Date of Evaluation: 12/22/16 Time of Evaluation: 12:10 - Subjective Subjective: Final phase of pt's work up completed today with no evidence of any neurologic abnormality. Pt noted rightfully by Neuro that pt is on several medications which are consciousness-altering and may slow down pt's response time when ambulating or doing his ADLs. Suggested modification of these meds to alternative that may be less hazardous to pt. Pt for d/c in AM. Objective - Vital Signs/Intake and Output Vital Signs (last 24 hours): Temp Pulse Resp BP Pulse Ox 97.7 F 76 20 123/76 97 12/23/16 15:51 12/23/16 18:18 12/23/16 15:51 12/23/16 17:21 12/23/16 15:51 Intake and Output: 12/23/16 12/23/16 06:59 18:59 Intake Total 200 780 Output Total 700 2000 Balance -500 -1220 - Medications Medications: Current Medications Acetaminophen (Tylenol 325mg Tab) 650 mg PO Q4H PRN PRN Reason: Pain, Mild (1-3) Last Admin: 12/21/16 23:29 Dose: 650 mg Folic Acid (Folic Acid) 1 mg PO DAILY [facility] Last Admin: 12/23/16 09:37 Dose: 1 mg Ibuprofen (Motrin Tab) 600 mg PO Q6H PRN PRN Reason: Pain, moderate (4-7) Last Admin: 12/22/16 19:29 Dose: 600 mg Methenamine Hippurate (Hiprex) 1 gm PO BID [facility] Last Admin: 12/23/16 17:19 Dose: 1 gm Metoprolol Tartrate (Lopressor) 25 mg PO BID [facility] Last Admin: 12/23/16 17:19 Dose: 25 mg Polyethylene Glycol (Miralax) 17 gm PO HS PRN PRN Reason: Constipation Last Admin: 12/23/16 09:40 Dose: 17 gm Rosuvastatin Calcium (Crestor) 10 mg PO HS [facility] Last Admin: 12/22/16 21:36 Dose: 10 mg Tramadol HCl (Ultram) 25 mg PO Q8 PRN PRN Reason: Pain, moderate (4-7) Zolpidem Tartrate (Ambien) 5 mg PO HS PRN PRN Reason: Insomnia Last Admin: 12/21/16 23:29 Dose: 5 mg - Labs Labs: 12/18/16 06:26 12/18/16 06:26 PT 11.1 SECONDS (9.7-12.2) 12/17/16 06:43 INR 1.0 12/17/16 06:43 APTT 30 SECONDS (21-34) 12/17/16 06:43 - Constitutional Appears: In Acute Distress - Head Exam Head Exam: NORMAL INSPECTION - Eye Exam Eye Exam: Normal appearance Pupil Exam: NORMAL ACCOMODATION - ENT Exam ENT Exam: Mucous Membranes Moist, Normal Exam - Neck Exam Neck Exam: Normal Inspection - Respiratory Exam Respiratory Exam: Clear to Ausculation Bilateral - Cardiovascular Exam Cardiovascular Exam: REGULAR RHYTHM - GI/Abdominal Exam GI & Abdominal Exam: Soft, Normal Bowel Sounds - Rectal Exam Rectal Exam: Deferred - Exam Exam: NORMAL INSPECTION - Extremities Exam Extremities Exam: Tenderness (at L shoulder joint; in sling; encouraged movement to prevent atrophy) - Back Exam Back Exam: NORMAL INSPECTION - Neurological Exam Neurological Exam: Abnormal Gait, Alert, Awake, CN II-XII Intact Neuro motor strength exam: Left Upper Extremity: 4, Right Upper Extremity: 2/1, Left Lower Extremity: 4, Right Lower Extremity: 4 - Psychiatric Exam Psychiatric exam: Agitated, Anxious, Depressed Additional comments: but mostly normal; becomes agitated with inadequate relief of pain which had been explained to him how he should rate his pain to get the strongest pain medication, or a lesser dose, as necessary - Skin Skin Exam: Dry, Intact, Normal Color, Warm Assessment and Plan (1) Loss of balance Status: Acute (2) Dislocation of left shoulder joint Status: Chronic (3) Compression fracture of first lumbar vertebra Status: Chronic
--- NOTE | 2016-12-24 08:50 | MRI ---
PROCEDURE: MR THORACIC SPINE WITHOUT CONTRAST HISTORY: COMPARISON: None available. TECHNIQUE: Multiecho multiplanar sequences were performed through the thoracic spine without the use of intravenous contrast. FINDINGS: ALIGNMENT: There is degenerative 2 mm anterior listhesis of T3 on T4. Thoracic kyphosis is preserved. VERTEBRA: There is an old superior endplate compression fracture deformity in the T11 vertebral body with approximately 50 percent loss of anterior and central vertebral height and mild retropulsion of posterior superior fragment without cord compression or spinal canal stenosis. There is no acute fracture. MARROW: There is heterogeneous predominantly T1 and T2 hypointense bone marrow signal likely related to red marrow reconversion which can be seen with chronic smoking or anemia of chronic disease. PARASPINAL SOFT TISSUES: The paraspinous soft tissues are normal. CORD: The thoracic cord is normal in contour, caliber and has normal intrinsic signal. DISCS: There is multilevel degenerative disc disease. Evaluation of individual disc levels demonstrate: T1-2: No large disc herniation, neural foraminal or spinal canal stenosis. T2-3: Mild posterior disc bulge without neural foraminal or spinal canal stenosis. T3-4: Central disc protrusion indents the ventral thecal sac without spinal canal stenosis. No neural foraminal stenosis. T4-5: Central disc protrusion indents the ventral thecal sac without central spinal canal stenosis. No neural foraminal stenosis. T5-6: No large disc herniation neural foraminal or spinal canal stenosis. T6-7: No large disc herniation, neural foraminal or spinal canal stenosis. T7-8: Central annular tear and broad-based central disc protrusion indents the ventral thecal sac without spinal canal stenosis. Mild bilateral facet arthropathy without neural foraminal stenosis. T8-9: Mild posterior disc bulge and mild bilateral facet arthropathy without neural foraminal or spinal canal stenosis. T9-10: Posterior disc bulge and mild bilateral facet arthropathy without neural foraminal or spinal canal stenosis. T10-11: Mild posterior disc bulge and facet arthropathy without neural foraminal stenosis. T11-12: No large disc herniation, neural foraminal or spinal canal stenosis. T12-L1: Diffuse posterior disc bulge without neural foraminal or spinal canal stenosis. OTHER FINDINGS: The paraspinous soft tissues are normal. IMPRESSION: Mild multilevel degenerative disc disease, worse at T7-8 with a central annular tear and broad-based central disc protrusion which indents the ventral thecal sac without spinal canal stenosis. Mild bilateral facet arthropathy without neural foraminal stenosis. Additional comments as described above.
[2016-12-24 09:47] VITALS: RESP 20
--- NOTE | 2016-12-24 11:15 | EEG ---
DATE: 12/21/2016 CONDITION OF THE RECORDING: This is a 16-channel electroencephalogram of awake and drowsy adult. During the study, photic stimulation was performed. Hyperventilation was not performed. TESTING: Electroencephalogram continues to have 30-40 microvolts, moderate voltage, 4-5 Hz delta mixed with theta activities noted in the bilateral cortical leads. Some moment and muscle artifact contaminant rhythm. This has been corrected later on. This is followed with bilateral frontal as well as blinking artifact contaminant in the frontal rhythm. There is a generalized 2-3 Hz delta activities seen, which is consistent with the drowsiness. The photic stimulation did not evoke, primary response noted at 2-20 Hz. IMPRESSION: This is abnormal electroencephalogram because of persistent slowing throughout the record suggestive of bilateral cerebral dysfunction. However, during the study needed intensive rapid paroxysmal activities nor focal slowing noted. Hernandez Vuong MD
--- NOTE | 2016-12-24 12:54 | PCM.URO ---
Urology Progress Note - General General: No Complaints, Tolerating Diet - Subjective Abdominal Pain: No Flank Pain: No Hematuria: No Fever & Chills: No Other: catheter in place. pt does not want cath removal in hospital - Objective Lab Studies: Reviewed (culture negative) Intake & Output: Intake & Output 12/23/16 12/24/16 12/24/16 18:59 06:59 18:59 Intake Total 780 100 Output Total 1999 1350 Balance -1220 -1250 Weight 165 lb 5.547 oz Intake: Oral 780 100 Output: Urine 1999 1350 Urethral ([place]) 1999 1350 Other: # Bowel Movements 0 Vital Signs: Vital Signs - 24 hr 12/23/16 12/23/16 12/23/16 15:51 17:19 17:21 Temperature 97.7 F Pulse Rate 61 71 Respiratory 20 Rate Blood Pressure 117/77 123/76 123/76 O2 Sat by Pulse 97 Oximetry 12/23/16 12/23/16 12/23/16 18:15 18:18 23:15 Temperature Pulse Rate 76 76 64 Respiratory Rate Blood Pressure O2 Sat by Pulse Oximetry 12/23/16 12/24/16 12/24/16 23:30 07:49 07:56 Temperature 97.9 F 97.6 F Pulse Rate 64 61 72 Respiratory 20 19 Rate Blood Pressure 136/79 98/61 L O2 Sat by Pulse 96 93 L Oximetry 12/24/16 12/24/16 09:46 09:47 Temperature Pulse Rate 66 Respiratory 20 Rate Blood Pressure 105/67 105/67 O2 Sat by Pulse 94 L Oximetry - Physical Exam Abdominal Exam: Soft, Non-Tender, Non-Distended Back: No CVA Tenderness Genitalia: Without Inflammation Urinary Catheter Draining Well: Yes Urine Color: Clear, Yellow - Plan Catheter Care: Yes Additional Information: rec: trial of voiding. for now, catheter in place as per pt's wishes - Date & Time of Note Date: 12/24/16 Time: 12:54
[2016-12-24] MEDS: POLYETHYLENE GLYCOL 3350 17 GM/Dose PACKET PO PRN (14:16)
[2016-12-24 17:20] VITALS: BP 158/89; PULSE 76; TEMP 97.7; O2SAT 96
--- NOTE | 2016-12-24 18:26 | CP.PCM.PN ---
Subjective - Date & Time of Evaluation Date of Evaluation: 12/24/16 Time of Evaluation: 18:26 - Subjective Subjective: Alert, awake, no sob or chest pains, no acute distress. Objective - Vital Signs/Intake and Output Vital Signs (last 24 hours): Temp Pulse Resp BP Pulse Ox 97.7 F 76 20 158/89 H 96 12/24/16 17:19 12/24/16 17:19 12/24/16 17:19 12/24/16 17:23 12/24/16 17:19 Intake and Output: 12/24/16 12/24/16 06:59 18:59 Intake Total 100 Output Total 1350 550 Balance -1250 -550 - Medications Medications: Current Medications Acetaminophen (Tylenol 325mg Tab) 650 mg PO Q4H PRN PRN Reason: Pain, Mild (1-3) Last Admin: 12/23/16 23:33 Dose: 650 mg Folic Acid (Folic Acid) 1 mg PO DAILY [facility] Last Admin: 12/24/16 09:44 Dose: 1 mg Ibuprofen (Motrin Tab) 600 mg PO Q6H PRN PRN Reason: Pain, moderate (4-7) Last Admin: 12/24/16 14:16 Dose: 600 mg Methenamine Hippurate (Hiprex) 1 gm PO BID [facility] Last Admin: 12/24/16 17:23 Dose: 1 gm Metoprolol Tartrate (Lopressor) 25 mg PO BID [facility] Last Admin: 12/24/16 17:23 Dose: 25 mg Polyethylene Glycol (Miralax) 17 gm PO HS PRN PRN Reason: Constipation Last Admin: 12/24/16 14:16 Dose: 17 gm Rosuvastatin Calcium (Crestor) 10 mg PO HS [facility] Last Admin: 12/23/16 21:28 Dose: 10 mg Tramadol HCl (Ultram) 25 mg PO Q8 PRN PRN Reason: Pain, moderate (4-7) Last Admin: 12/23/16 22:40 Dose: 25 mg Zolpidem Tartrate (Ambien) 5 mg PO HS PRN PRN Reason: Insomnia Last Admin: 12/23/16 22:41 Dose: 5 mg - Labs Labs: 12/18/16 06:26 12/18/16 06:26 PT 11.1 SECONDS (9.7-12.2) 07/24/17 06:43 INR 1.0 12/17/16 06:43 APTT 30 SECONDS (21-34) 12/17/16 06:43 Assessment and Plan - Assessment and Plan (Free Text) Assessment: Patient admitted with syncope and shoulder dislocation, seen and examined. Alert , awake, hard of hearing. D/W DR Gonzalez, plan to discharge to [facility] today. Will discontinue tramadol and ambien as advised by DR Vuong. Patient verbalized understanding.
--- NOTE | 2017-01-12 00:56 | CP.PCM.DIS ---
Provider - Provider Date of Admission: 12/17/16 11:04 Attending physician: Kendall Gonzalez MD Primary care physician: Dr. Kendall Gonzalez Consults: Dr. Yancy Gonzalez-Serenitydilshad Oconnell Time Spent in preparation of Discharge (in minutes): 30 Diagnosis - Discharge Diagnosis (1) Loss of balance Status: Acute (2) Dislocation of left shoulder joint Status: Chronic (3) Compression fracture of first lumbar vertebra Status: Chronic Comment: old injury, not from this admission Hospital Course - Lab Results Lab Results: Micro Results 12/17/16 12:30 Blood Blood Culture - Final NO GROWTH AFTER 5 DAYS 12/17/16 12:30 Blood Gram Stain - Final TEST NOT PERFORMED 12/17/16 12:00 Blood Blood Culture - Final NO GROWTH AFTER 5 DAYS 12/17/16 12:00 Blood Gram Stain - Final TEST NOT PERFORMED 12/18/16 16:48 Nose MRSA Culture - Final MRSA NOT DETECTED 12/17/16 15:00 Urine,[place] Urine Culture - Final No Growth (<1,000 CFU/ML) 12/17/16 15:00 Naris MRSA Culture (Admit) - Final MRSA NOT DETECTED Most Recent Lab Values WBC 10.7 K/uL (4.8-10.8) 12/18/16 06:26 RBC 4.82 Mil/uL (4.40-5.90) 12/18/16 06:26 Hgb 15.4 g/dL (12.0-18.0) 12/18/16 06:26 Hct 45.1 % (35.0-51.0) 12/18/16 06:26 MCV 93.6 fL (80.0-94.0) 12/18/16 06:26 MCH 31.9 pg (27.0-31.0) H 12/18/16 06:26 MCHC 34.1 g/dL (33.0-37.0) 12/18/16 06:26 RDW 12.8 % (11.5-14.5) 12/18/16 06:26 Plt Count 188 K/uL (130-400) 12/18/16 06:26 MPV 9.9 fL (7.2-11.7) 12/18/16 06:26 Neut % (Auto) 73.3 % (50.0-75.0) 12/18/16 06: Lymph % (Auto) 18.0 % (20.0-40.0) L 12/18/16 06:26 [place] % (Auto) 6.1 % (0.0-10.0) 12/18/16 06:26 Eos % (Auto) 2.2 % (0.0-4.0) 12/18/16 06:26 Baso % (Auto) 0.4 % (0.0-2.0) 12/18/16 06:26 Neut # 7.8 K/uL (1.8-7.0) H 12/18/16 06:26 Lymph # 1.9 K/uL (1.0-4.3) 12/18/16 06: [place] # 0.7 K/uL (0.0-0.8) 12/18/16 06: Eos # 0.2 K/uL (0.0-0.7) 12/18/16 06: Baso # 0.0 K/uL (0.0-0.2) 12/18/16 06:26 Differential Comment 12/18/16 06:26 ESR 7 mm/hr (0-15) 12/17/16 12:40 PT 11.1 SECONDS (9.7-12.2) 12/17/16 06:43 INR 1.0 12/17/16 06:43 APTT 30 SECONDS (21-34) 12/17/16 06:43 pO2 24 mm/Hg (30-55) L 12/17/16 11:39 VBG pH 7.37 (7.32-7.43) 12/17/16 11:39 VBG pCO2 48 mmHg (40-60) 12/17/16 11:39 VBG HCO3 24.7 mmol/L 12/17/16 11:39 VBG Total CO2 29.2 mmol/L (22-28) H 12/17/16 11:39 VBG O2 Sat (Calc) 49.4 % (40-65) 12/17/16 11:39 VBG Base Excess 1.7 mmol/L (0.0-2.0) 12/17/16 11:39 VBG Potassium 4.6 mmol/L (3.6-5.2) 12/17/16 11:39 Sodium 141.0 mmol/l (132-148) 12/17/16 11:39 Chloride 106.0 mmol/L (98-107) 12/17/16 11:39 Glucose 198 mg/dl (75-110) H 12/17/16 11:39 Lactate 3.5 mmol/L (0.7-2.1) H 12/17/16 11:39 Sodium 139 mmol/L (132-148) 12/18/16 06:26 Potassium 4.1 mmol/L (3.6-5.2) 12/18/16 06:26 Chloride 100 mmol/L (98-107) 12/18/16 06:26 Carbon Dioxide 26 mmol/L (22-30) 12/18/16 06:26 Anion Gap 18 (10-20) 12/18/16 06:26 BUN 15 mg/dL (9-20) 12/18/16 06:26 Creatinine 0.8 MG/DL (0.8-1.5) 12/18/16 06:26 Est GFR ( Amer) > 60 12/18/16 06:26 Est GFR (Non-Af Amer) > 60 12/18/16 06:26 Random Glucose 122 mg/dL (75-110) H 12/18/16 06:26 Hemoglobin A1c 6.2 % (4.2-6.5) 12/21/16 07:30 Lactic Acid 1.7 mmol/L (0.7-2.1) 12/18/16 04:00 Calcium 8.9 mg/dl (8.6-10.4) 12/18/16 06:26 Phosphorus 3.1 mg/dL (2.5-4.5) 12/17/16 12:40 Magnesium 1.8 mg/dL (1.6-2.3) 12/17/16 12:40 Total Bilirubin 1.1 mg/dL (0.2-1.3) 12/18/16 06:26 AST 30 U/L (17-59) 12/18/16 06:26 ALT 25 U/L (21-72) 12/18/16 06:26 Alkaline Phosphatase 56 U/L (38-126) 12/18/16 06:26 Total Creatine Kinase 499 U/L (55-170) H 12/18/16 06:26 CK-MB (Mass) 2.02 ng/mL (0.0-3.38) 12/18/16 06:26 Troponin I < 0.0120 ng/mL (0.00-0.120) 12/17/16 06:43 Troponin I, Quant < 0.0120 ng/mL (0.00-0.120) 12/18/16 06:26 Total Protein 7.0 g/dL (6.3-8.3) 12/18/16 06:26 Albumin 3.7 g/dL (3.5-5.0) 12/18/16 06:26 Globulin 3.3 gm/dL (2.2-3.9) 12/18/16 06:26 Albumin/Globulin Ratio 1.1 (1.0-2.1) 12/18/16 06:26 Carcinoembryonic Ag 0.8 ng/mL (0-3.0) 12/21/16 19:13 Prostate Specific Ag 1.66 ng/mL (0.00-4.0) 12/21/16 19:13 Vitamin B12 364 pg/mL (239-931) 12/21/16 07:30 Folate 6.6 ng/mL 12/21/16 07:30 Free T4 0.96 ng/dL (0.78-2.19) 12/21/16 07:30 TSH 3rd Generation 4.54 mIU/L (0.46-4.68) 12/21/16 07:30 Venous Blood Potassium 4.6 mmol/L (3.6-5.2) 12/17/16 11:39 Urine Color Yellow (YELLOW) 12/17/16 09:23 Urine Clarity Hazy (Clear) 12/17/16 09:23 Urine pH 5.0 (5.0-8.0) 12/17/16 09:23 Ur Specific [place] 1.024 (1.003-1.030) 12/17/16 09:23 Urine Protein 1+ mg/dL (NEGATIVE) H 12/17/16 09:23 Urine Glucose (UA) 2+ mg/dL (Normal) H 12/17/16 09:23 Urine Ketones Trace mg/dL (NEGATIVE) 12/17/16 09:23 Urine Blood Negative (NEGATIVE) 12/17/16 09:23 Urine Nitrate Negative (NEGATIVE) 12/17/16 09:23 Urine Bilirubin Negative (NEGATIVE) 12/17/16 09:23 Urine Urobilinogen Normal mg/dL (0.2-1.0) 12/17/16 09:23 Ur Leukocyte Esterase 3+ Moise/uL (Negative) H 12/17/16 09:23 Urine WBC (Auto) 193 /hpf (0-5) H 12/17/16 09:23 Urine RBC (Auto) 5 /hpf (0-3) H 12/17/16 09:23 Ur Squamous Epith Cells < 1 /hpf (0-5) 12/17/16 09:23 Urine Bacteria Rare (<OCC) 12/17/16 09:23 Serum Immunofixation Not detected (Not Detected) 12/21/16 07:30 Urine Immunofixation Not detected (Not Detected) 12/21/16 09:14 RPR Nonreactive (NONREACTIVE) 12/21/16 07:30 - Hospital Course Hospital Course: Pt admitted after sustaining a fall at home where he dislocated his left shoulder while on his way to the bathroom. Pt had to have an intraop closed reduction of the dislocation. During the admission, pt was worked up for possible cause of his frequent falls, not just this time, but for other previous falls which had produced injuries which included a fractured 1st lumbar vertebra. Coinsultation sough as well for a cardiac etiology which was ruled out after testing. Neurological evaluation did not reveal any acute issues , though suggestions for changes in pt's medicatoin werei implemented at discharge. > After refusing to consider [facility] admission to allow him to recover from his injury, pt suddenly changed his mind the day before discharge to home and agreed to [facility] placement. Pt subsequently admitt[facility]. Discharge Exam - Head Exam Head Exam: NORMAL INSPECTION - Eye Exam Eye Exam: Normal appearance Pupil Exam: NORMAL ACCOMODATION - ENT Exam ENT Exam: Normal Exam - Neck Exam Neck exam: Normal Inspection - Respiratory Exam Respiratory Exam: Clear to PA & Lateral, NORMAL BREATHING PATTERN - Cardiovascular Exam Cardiovascular Exam: REGULAR RHYTHM - GI/Abdominal Exam GI & Abdominal Exam: Normal Bowel Sounds - Extremities Exam Extremities exam: pedal pulses present (LUE in immobilizer) - Back Exam Back exam: NORMAL INSPECTION - Neurological Exam Neurological exam: Alert, CN II-XII Intact, Normal Gait, Oriented x3 - Psychiatric Exam Psychiatric exam: Anxious, Depressed - Skin Skin Exam: Dry, Intact, Pallor, Warm Discharge Plan - Follow Up Plan Condition: FAIR Disposition: REHAB FACILITY/REHAB UNIT Instructions: Shoulder Dislocation Exercises (GEN), Urinary Tract Infection in Men (DC), Heart Healthy Diet (DC), Chronic Hypertension (DC) Additional Instructions: USP to call Dr. Gonzalez for medication orders when the patient gets to facility Referrals: Kendall Gonzalez MD [Staff Provider] - Hernandez Vuong MD [Staff Provider] - Chen Oconnell MD [Staff Provider] - Clinical Quality Measures - CQM - Stroke Contranindication/Reason for not providing: Risk for Bleeding Anticoagulation Prescribed for Atrial Flutter, Atrial Fibrillation and History of:: Medical Contraindication Present Contranindication/Reason for not providing: Risk for Bleeding, Risk for Falling Contraindication/Reason for not providing: Other If Other selected, reason for not providing: no indication - CQM - VTE Did patient receive overlap therapy during hosptialization?: No If no, please select a reason why?: Risk of Bleeding Is patient being discharged on overlap therapy?: No If no, please select a reason why:: Risk of Bleeding
== END 2016-12-24 18:05 | DRG 563 ==
LOC: C.ER 05:16 → C.9E 11:04 → C.9I 14:29 → C.5T 12-18 17:12
PROVIDERS: ADMIT Family Medicine; ATTEND Family Medicine
DX: S43.005A Unspecified dislocation of left shoulder joint, initial encounter (principal); S32.019A Unspecified fracture of first lumbar vertebra, initial encounter for closed fracture; G93.89 Other specified disorders of brain; G95.9 Disease of spinal cord, unspecified; I48.0 Paroxysmal atrial fibrillation; G62.9 Polyneuropathy, unspecified; N39.0 Urinary tract infection, site not specified; I47.1 Supraventricular tachycardia; G83.4 Cauda equina syndrome; I10 Essential (primary) hypertension; R55 Syncope and collapse; R42 Dizziness and giddiness; R29.6 Repeated falls; Z86.73 Personal history of transient ischemic attack (TIA), and cerebral infarction without residual deficits; K21.9 Gastro-esophageal reflux disease without esophagitis; E78.00 Pure hypercholesterolemia, unspecified

== ENCOUNTER 2017-01-23 04:32 | Emergency (ER) | payer MEDICARE, BC ==
[2017-01-23 04:33] VITALS: BMI 23.6
[2017-01-23] MEDS ORDERED: Hydrocodone/Acetaminophen 5 mg /300 mg Tab PO STA (04:57)
--- NOTE | 2017-01-23 05:10 | C.PDOC ---
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 Patient was going to the bathroom where he did not realize his Marie bag attached to his leg was full of urine which dragged him down. Patient notes left arm pain but states " its old, it's from a previous shoulder dislocation." Denies LOC, vomiting, SOB, weakness, numbness, dizziness, or any other complaints. 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) Location Of Injury: Anterior: Face, Hand Severity: Mild Recent travel outside of the [place]: No Additional History Per: Patient - Fall Fall:Prior To Injury: Lost Balance (Due to marie bag weight on leg) Past Medical History Reviewed: Historical Data, Nursing Documentation, Vital Signs Vital Signs: Last Vital Signs Temp 97.5 F L 01/23/17 04:40 Pulse 68 01/23/17 04:40 Resp 20 01/23/17 04:40 BP 148/77 01/23/17 04:40 Pulse Ox 96 01/23/17 06:03 - Medical History PMH: Anxiety, Atrial Fibrillation, Cardia Arrhythmia (atrial flutter with reentrant pathways, SVT), Fractures (LOW BACK), HTN, Hypercholesterolemia, Peripheral Edema, TIA Surgical History: Carotid Endarterectomy (RIGHT), Endoscopy, Tonsillectomy - [facility] Procedures ENDOSC POLYPECTOMY OF LG INTEST (09/08/14) Family History: States: Unknown Family Hx - Social History Hx Tobacco Use: No Hx Alcohol Use: Yes (occasional) Hx Substance Use: No - Immunization History Hx Tetanus Toxoid Vaccination: No Hx Influenza Vaccination: No Hx Pneumococcal Vaccination: No Review Of Systems Except As Marked, All Systems Reviewed And Found Negative. Constitutional: Positive for: Other (Mechanical fall, pain to face and head) Respiratory: Negative for: Shortness of Breath Musculoskeletal: Positive for: Shoulder Pain (left shoulder pain, from previous dislocation) Neurological: Negative for: Weakness, Numbness, Dizziness, Other (LOC) Physical Exam - Physical Exam Additional Physical Exam Comments: Constitutional: No acute distress. Head: Normocephalic. Contusion over the left cheek. Eyes: PERRL. ENT: Moist mucous membranes. Neck: Supple. No midline tenderness. Cardiovascular: Regular rate. Radial pulse 2+ bilaterally. Chest: No tenderness. Respiratory: Clear to auscultation bilaterally. GI: Soft. Nontender. Nondistended. Back: No CVA tenderness. No midline tenderness Musculoskeletal: No tenderness or swelling of extremities. Skin: No rash. Male genital: Indwelling marie catheter (bag attached to right leg). Extremity: ROM x4. Left arm ranges with pain (Pt states it is old). Neurologic: Alert, no focal deficit. ED Course And Treatment O2 Sat by Pulse Oximetry: 96 (RA) Pulse Ox Interpretation: Normal - CT Scan/US CT Head w/o Other Rad Studies (CT/US): Interpreted By Me, Read By Radiologist CT/US Interpretation: IMPRESSION: 1. No intracranial hemorrhage. 2. Nonspecific white matter changes. 3. See facial bone CT report for additional details. CT Temporal Other Rad Studies (CT/US): Interpreted By Me, Read By Radiologist CT/US Interpretation: IMPRESSION: 1. No fracture. CT Cervical spine Other Rad Studies (CT/US): Interpreted By Me, Read By Radiologist CT/US Interpretation: IMPRESSION: 1. No fracture. 2. Incidental/non-acute findings are described above. 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 Plans: * CT cervical spine * CT Head w/o * CT Orbits/Facial * Arianna Discussed case with Dr. Gonzalez via phone who states that he attempted to get patient to stay in [place] by writing letter but patient was already discharged from there. He recommends discharge home at this time given that imaging is negative for any acute injuries. Disposition - Disposition Disposition: HOME/ ROUTINE Disposition Time: 06:16 Condition: STABLE Instructions: Fall Prevention for Older Adults (ED) Forms: [employer] (Danish) - Clinical Impression Clinical Impression: Contusion - Scribe Statement The provider has reviewed the documentation as recorded by the Scribe Tyrone beck All medical record entries made by the Scribe were at my direction and personally dictated by me. I have reviewed the chart and agree that the record accurately reflects my personal performance of the history, physical exam, medical decision making, and the department course for this patient. I have also personally directed, reviewed, and agree with the discharge instructions and disposition.
--- NOTE | 2017-01-23 05:14 | C.PDOC ---
- HPI Time Seen by Provider: 01/23/17 04:47 Chief Complaint (Nursing): Trauma Past Medical History Vital Signs: Last Vital Signs Temp 97.5 F L 01/23/17 04:40 Pulse 68 01/23/17 04:40 Resp 20 01/23/17 04:40 BP 148/77 01/23/17 04:40 Pulse Ox 96 01/23/17 04:40 - Medical History PMH: Anxiety, Atrial Fibrillation, Cardia Arrhythmia (atrial flutter with reentrant pathways, SVT), Fractures (LOW BACK), HTN, Hypercholesterolemia, Peripheral Edema, TIA Surgical History: Carotid Endarterectomy (RIGHT), Endoscopy, Tonsillectomy - [facility] Procedures ENDOSC POLYPECTOMY OF LG INTEST (09/08/14) Family History: States: Unknown Family Hx - Social History Hx Tobacco Use: No Hx Alcohol Use: Yes (occasional) Hx Substance Use: No - Immunization History Hx Tetanus Toxoid Vaccination: No Hx Influenza Vaccination: No Hx Pneumococcal Vaccination: No ED Course And Treatment O2 Sat by Pulse Oximetry: 96 Disposition - Disposition Forms: [employer] (Cape Verdean)
--- NOTE | 2017-01-23 05:53 | CT ---
EXAM: CT Head Without Intravenous Contrast CLINICAL HISTORY: 76 years old, male; Injury or trauma; Fall; Initial encounter; Concussion / head injury; Additional info: Fall, headstrike TECHNIQUE: Axial computed tomography images of the head/brain without intravenous contrast. All CT scans at this facility use one or more dose reduction techniques, viz.: automated exposure control; ma/kV adjustment per patient size (including targeted exams where dose is matched to indication; i.e. head); or iterative reconstruction technique. Coronal and sagittal reformatted images were created and reviewed. COMPARISON: No relevant prior studies available. FINDINGS: Brain: Onit-fv-[id number] atrophy. Prominent extra-axial spaces along frontal, temporal convexities. No intracranial hemorrhage. No mass. Mild encephalomalacia within RIGHT temporal, RIGHT parietal regions. Few scattered foci of decreased attenuation within periventricular/subcortical white matter. No edema. Ventricles: No hydrocephalus. Bones/joints: No calvarial fracture. Vasculature: Mild atherosclerotic disease of intracranial arteries. Mastoid air cells: No mastoid effusion. IMPRESSION: 1. No intracranial hemorrhage. 2. Nonspecific white matter changes. 3. See facial bone CT report for additional details.
--- NOTE | 2017-01-23 05:56 | CT ---
EXAM: CT Orbits Without Intravenous Contrast CLINICAL HISTORY: 76 years old, male; Injury or trauma; Fall; Initial encounter; Concussion /head injury; Loss of consciousness not known TECHNIQUE: Axial computed tomography images of the orbits without intravenous contrast. All CT scans at this facility use one or more dose reduction techniques, viz.: automated exposure control; ma/kV adjustment per patient size (including targeted exams where dose is matched to indication; i.e. head); or iterative reconstruction technique. Coronal and sagittal reformatted images were created and reviewed. COMPARISON: No relevant prior studies available. FINDINGS: Orbits: Unremarkable as visualized. Sinuses: Unremarkable. No air-fluid levels. Bones/joints: No acute fracture. Soft tissues: LEFT maxillary soft tissue swelling. Dental: Dental caries. IMPRESSION: 1. No fracture.
--- NOTE | 2017-01-23 06:02 | CT ---
EXAM: CT Cervical Spine Without Intravenous Contrast CLINICAL HISTORY: 76 years old, male; Injury or trauma; Fall; Initial encounter; Concussion /head injury TECHNIQUE: Axial computed tomography images of the cervical spine without intravenous contrast. All CT scans at this facility use one or more dose reduction techniques, viz.: automated exposure control; ma/kV adjustment per patient size (including targeted exams where dose is matched to indication; i.e. head); or iterative reconstruction technique. Coronal and sagittal reformatted images were created and reviewed. COMPARISON: No relevant prior studies available. FINDINGS: Vertebrae: No acute fracture. Degenerative retrolithesis of upper cervical spine. Facet osteoarthrosis within cervical spine. Discs/spinal canal/neural foramina: Mild degenerative disc disease within upper cervical spine. Mild degenerative disc disease within mid cervical spine. [id number] degenerative disc disease within lower cervical spine. No significant central canal stenosis. Neuroforaminal narrowing with mid and lower cervical spine. Soft tissues: Unremarkable. Vasculature: Atherosclerotic disease of visualized arteries. Thyroid: Small lipoma RIGHT lobe. Lung apices: Unremarkable as visualized. IMPRESSION: 1. No fracture. 2. Incidental/non-acute findings are described above.
[2017-01-23 07:23] VITALS: BP 136/85; PULSE 74; RESP 16; TEMP 97.8; O2SAT 98
== END 2017-01-23 08:52 | disposition home or self-care (01) ==
LOC: C.ER 04:32
DX: S00.83XA Contusion of other part of head, initial encounter (principal); W01.0XXA Fall on same level from slipping, tripping and stumbling without subsequent striking against object, initial encounter; Y93.89 Activity, other specified; Y92.89 Other specified places as the place of occurrence of the external cause

== ENCOUNTER 2017-02-18 13:25 | Emergency (ER) | payer BC, MEDICARE ==
[2017-02-18 13:26] VITALS: BMI 23.6
[2017-02-18] MEDS ORDERED: Sodium Chloride 0.9% 500 ML IV ONE (16:05)
[2017-02-18 16:44] LABS: BASO % 0.2 % (0.0-2.0); EOS # 0.3 K/uL (0.0-0.7); EOS % 2.8 % (0.0-4.0); LYMPH # 2.3 K/uL (1.0-4.3); MEAN CELL VOLUME 92.2 fL (80.0-94.0); MEAN CORPUSCULAR HEMOGLOBIN 31.3 pg (27.0-31.0); MEAN PLATELET VOLUME 7.9 fL (7.2-11.7); MONO # 0.6 K/uL (0.0-0.8); MONO % 5.5 % (0.0-10.0); NRBC % 0.1 % (0.0-2.0); RED CELL DISTRIBUTION WIDTH 13.6 % (11.5-14.5); WHITE BLOOD COUNT 10.2 K/uL (4.8-10.8)
[2017-02-18 16:49] LABS: RBC URINE 105 /hpf (0-3); URINE BILIRUBIN NEGATIVE (NEGATIVE); URINE BLOOD 2+ (NEGATIVE); URINE COLOR Yellow (YELLOW); URINE GLUCOSE (UA) 1+ mg/dL (Normal); URINE KETONE NEGATIVE (NEGATIVE); URINE LEUKOCYTE ESTERASE 3+ Leu/uL (Negative); URINE PROTEIN 2+ mg/dL (NEGATIVE); URINE UROBILINOGEN NORMAL mg/dL (0.2-1.0); WBC CLUMPS OCC /hpf; WBC URINE 1600 /hpf (0-5)
[2017-02-18 16:50] LABS: CHLORIDE 105 mmol/L (98-107); SODIUM 142 mmol/L (132-148)
[2017-02-18 16:51] VITALS: RESP 18
[2017-02-18 16:51] LABS: POTASSIUM 4.2 mmol/L (3.6-5.2)
[2017-02-18 16:53] LABS: GFR AFRICAN-AMERICAN > 60
[2017-02-18 16:54] LABS: BLOOD UREA NITROGEN 20 mg/dL (9-20); CALCIUM 9.2 mg/dl (8.6-10.4); CARBON DIOXIDE 25 mmol/L (22-30); GLUCOSE,RANDOM 91 mg/dL (75-110)
--- NOTE | 2017-02-18 17:08 | C.PDOC ---
History Of Present Illness 76 y/o male presents to ED for evaluation of penile pain and penile discharge at the marie catheter insertion site for the last few days. Pt states that the marie catheter was placed 2 months for "incontinence". 2 weeks ago he saw urology (Dr. Jaja Oconnell), catheter was changed. Patient denies abdominal pain, n /v/d, flank pain, fever/chills. Time Seen by Provider: 02/18/17 15:50 Chief Complaint (Nursing): Male Genitourinary History Per: Patient History/Exam Limitations: no limitations Onset/Duration Of Symptoms: Days Current Symptoms Are (Timing): Still Present Quality Of Discomfort: "Pain" Associated Symptoms: denies: Loss Of Appetite, Back Pain, Chest Pain, Constipation Alleviating Factors: None Additional History Per: Patient Past Medical History Reviewed: Historical Data, Nursing Documentation, Vital Signs Vital Signs: Last Vital Signs Temp 98.9 F 02/18/17 18:00 Pulse 82 02/18/17 18:00 Resp 18 02/18/17 18:00 BP 142/82 02/18/17 18:00 Pulse Ox 97 02/18/17 18:09 - Medical History PMH: Anxiety, Atrial Fibrillation, Cardia Arrhythmia (atrial flutter with reentrant pathways, SVT), Fractures (LOW BACK), HTN, Hypercholesterolemia, Peripheral Edema, TIA Surgical History: Carotid Endarterectomy (RIGHT), Endoscopy, Tonsillectomy - [facility] Procedures ENDOSC POLYPECTOMY OF LG INTEST (09/08/14) Family History: States: No Known Family Hx - Social History Hx Tobacco Use: No Hx Alcohol Use: Yes (occasional) Hx Substance Use: No - Immunization History Hx Tetanus Toxoid Vaccination: (unk) Hx Influenza Vaccination: Yes Hx Pneumococcal Vaccination: Yes Review Of Systems Except As Marked, All Systems Reviewed And Found Negative. Constitutional: Negative for: Fever, Chills Cardiovascular: Negative for: Chest Pain, Palpitations Respiratory: Negative for: Cough, Shortness of Breath Gastrointestinal: Negative for: Nausea, Vomiting, Abdominal Pain, Diarrhea, Constipation Genitourinary: Positive for: Penile Discharge, Penile Pain. Negative for: Dysuria, Hematuria, Rash Neurological: Negative for: Headache, Dizziness Physical Exam - Physical Exam Appears: Well, Non-toxic, No Acute Distress Skin: Warm, Dry, No Rash Head: Normacephalic Eye(s): bilateral: Normal Inspection Oral Mucosa: Moist Teeth: No Normal Dentition (poor dentition) Neck: Supple Chest: Symmetrical Cardiovascular: Rhythm Regular Respiratory: Normal Breath Sounds, No Rales, No Rhonchi, No Wheezing Gastrointestinal/Abdominal: Normal Exam, Bowel Sounds, Soft, No Tenderness Back: Normal Inspection, No CVA Tenderness Male Genital: Other (marie catheter in place, purulent discharge at the urethral meatus, enlarged urethral meatus) Extremity: Normal ROM, No Pedal Edema Neurological/Psych: Oriented x3 ED Course And Treatment - Laboratory Results Result Diagrams: 02/18/17 16:37 02/18/17 16:37 O2 Sat by Pulse Oximetry: 97 (on RA) Pulse Ox Interpretation: Normal Progress Note: Blood work, UA ordered and reviewed. Pt was given PO Cipro, and IV NS bolus. Ucx and discharge culture obtained & sent to lab. Marie catheter changed in ED. Rxs given for Cipro and pyridium, and patient instructed to follow up with Dr. Jaja Oconnell in the office. He understands he should return to ED if symptoms worsen. Reevaluation Time: 17:30 Reassessment Condition: Improved - Physician Consult Information Physician Contacted: Chen Oconnell Outcome Of Conversation: Discussed patient with urologist, he would like UA, UCx and culture of urethral discharge. recommends marie removal and new one placed, and if labs ok discharge home with antibiotics and follow up in the office. Disposition Counseled Patient/Family Regarding: Studies Performed, Diagnosis, Need For Followup, Rx Given - Disposition Referrals: Chen Oconnell MD [Staff Provider] - Kendall Gonzalez MD [Staff Provider] - Disposition: HOME/ ROUTINE Disposition Time: 17:30 Condition: STABLE Additional Instructions: FOLLOW UP WITH DR Jaja OCONNELL WITHIN 1 WEEK USE MEDICATIONS DIRECTED DRINK PLENTY OF WATER RETURN TO ER IF SYMPTOMS WORSEN Prescriptions: Ciprofloxacin [Cipro] 1 tab PO BID #14 tab Naproxen [Naprosyn Tab] 375 mg PO BID PRN #20 tab PRN Reason: pain Phenazopyridine [Pyridium] 100 mg PO TID #9 tab Instructions: Urinary Tract Infection in Men (ED), Marie Catheter Placement and Care (ED) Forms: [employer] (Wolof) Print Language: UZBEK - POA Present On Arrival: None - Clinical Impression Clinical Impression: UTI (urinary tract infection), Indwelling Marie catheter calcification - Scribe Statement The provider has reviewed the documentation as recorded by the Sukiibe Dre Ann All medical record entries made by the Sukiibe were at my direction and personally dictated by me. I have reviewed the chart and agree that the record accurately reflects my personal performance of the history, physical exam, medical decision making, and the department course for this patient. I have also personally directed, reviewed, and agree with the discharge instructions and disposition.
[2017-02-18 18:01] VITALS: BP 142/82; PULSE 82; TEMP 98.9
[2017-02-18 18:03] VITALS: O2SAT 97
== END 2017-02-18 18:03 | disposition home or self-care (01) ==
LOC: C.ER 13:25
DX: N39.0 Urinary tract infection, site not specified (principal); T83.098A Other mechanical complication of other urinary catheter, initial encounter; Y84.8 Other medical procedures as the cause of abnormal reaction of the patient, or of later complication, without mention of misadventure at the time of the procedure
CPT/HCPCS: 51702; 80048; 81001; 85025; 87070; 87086; 87181; 99285; J7040

== ENCOUNTER 2017-09-13 06:21 | Inpatient (IN) | payer MEDICARE, BC ==
[2017-09-13 06:21] VITALS: BMI 23.6
--- NOTE | 2017-09-13 07:18 | CT ---
EXAM: CT Head Without Intravenous Contrast CLINICAL HISTORY: 77 years old, male; Pain; Headache and other: Fell; Patient HX: 01-23-17 images sent; Additional info: Fall TECHNIQUE: Axial computed tomography images of the head/brain without intravenous contrast. All CT scans at this facility use one or more dose reduction techniques, viz.: automated exposure control; ma/kV adjustment per patient size (including targeted exams where dose is matched to indication; i.e. head); or iterative reconstruction technique. Coronal and sagittal reformatted images were created and reviewed. COMPARISON: CT - HEAD W/O CONTRAST 2017-01-23 05:16 FINDINGS: Brain: There is moderate diffuse cerebral atrophy present, consistent with this patient's age. There is mild diffuse heterogeneity of the white matter attenuation, consistent with chronic white matter ischemic changes. There is a focus of decreased density and volume loss in the right frontal, parietal and temporal lobes, consistent with encephalomalacia from a remote infarct or other insult. No hemorrhage. Ventricles: The ventricular system demonstrates mild diffuse compensatory enlargement. Bones/joints: Unremarkable. No acute fracture. Soft tissues: Unremarkable. Sinuses: Unremarkable as visualized. No acute sinusitis. Mastoid air cells: Unremarkable as visualized. No mastoid effusion. IMPRESSION: Age-related atrophy and chronic white matter ischemic changes, with no evidence of an acute intracranial abnormality. Right frontal, parietal and temporal lobe encephalomalacia.
[2017-09-13] MEDS ORDERED: Sodium Chloride 0.9% 1,000 ML IV ONE (07:20)
[2017-09-13] MEDS ORDERED: Sodium Chloride 0.9% 1,000 ML ONE (07:38)
--- NOTE | 2017-09-13 07:41 | C.PDOC ---
History Of Present Illness 77 y/o male with history of stroke presents to ED s/p falling backward at home around 6am. Patient states he fell backward onto tile floor and walker landed on him. pt was eventually able to get to phone to call for help. Patient is unclear why he fell and denies loc, cp, sob, dizziness, neck pain. c/o pain to occiput of head at site of laceration. - HPI Time Seen by Provider: 09/13/17 06:57 Chief Complaint (Nursing): Trauma History Per: Patient History/Exam Limitations: no limitations Onset/Duration Of Symptoms: Hrs Past Medical History Reviewed: Historical Data, Nursing Documentation, Vital Signs Vital Signs: Last Vital Signs Temp 98.4 F 09/13/17 15:30 Pulse 81 09/13/17 15:43 Resp 18 09/13/17 15:30 BP 113/84 09/13/17 15:30 Pulse Ox 87 L 09/14/17 14:24 - Medical History PMH: Anxiety, Atrial Fibrillation, Cardia Arrhythmia (atrial flutter with reentrant pathways, SVT), Fractures (LOW BACK), HTN, Hypercholesterolemia, Peripheral Edema, TIA Surgical History: Carotid Endarterectomy (RIGHT), Endoscopy, Tonsillectomy - [facility] Procedures ENDOSC POLYPECTOMY OF LG INTEST (09/08/14) Family History: States: No Known Family Hx - Social History Hx Tobacco Use: No Hx Alcohol Use: Yes (occasional) Hx Substance Use: No - Immunization History Hx Tetanus Toxoid Vaccination: Yes (1 month ago per pt) Hx Influenza Vaccination: Yes Hx Pneumococcal Vaccination: Yes Review Of Systems Cardiovascular: Negative for: Chest Pain Respiratory: Negative for: Shortness of Breath Gastrointestinal: Negative for: Nausea, Vomiting Musculoskeletal: Negative for: Neck Pain Skin: Negative for: Rash Neurological: Positive for: Headache Physical Exam - Physical Exam Appears: Non-toxic, No Acute Distress, Chronically Ill, Other (cachetic with temporal wasting) Skin: Warm, Dry Head: Normacephalic, Tenderness, Laceration (5 cm deep laceration to posterior occipital region with swelling and tenderness) Eye(s): bilateral: PERRL, EOMI Oral Mucosa: Dry Teeth: Other (Poor dentition, multiple broken teeth, swelling and erythema to upper right gingiva) Gingiva: Erythema, Swelling Neck: Normal ROM, No Midline Cervical Tenderness, Supple Cardiovascular: Rhythm Regular Respiratory: Normal Breath Sounds, No Rales, No Rhonchi, No Wheezing Gastrointestinal/Abdominal: Soft, No Tenderness, No Guarding, No Rebound Extremity: Normal ROM, Capillary Refill (<2 seconds) Neurological/Psych: Oriented x3, Normal Speech, Normal Cognition, Normal Cranial Nerves, Normal Motor, Normal Sensation, Other (Mild left facial droop noted, unsure if old or new) ED Course And Treatment - Laboratory Results Result Diagrams: 09/14/17 06:18 09/14/17 06:18 ECG: Interpreted By Me, Viewed By Me ECG Rhythm: Sinus Rhythm Rate From EC (BPM) O2 Sat by Pulse Oximetry: 87 (RA) Pulse Ox Interpretation: Abnormal Laceration - Laceration Repair Y-shaped Occipitl region Wound Length (In cm): 5cm Description Of Wound: Irregular (Y-shaped deep Lac, skull palpated, no abnormalites felt) Wound Cleansed With: Betadine, Sterile Saline Anesthesia: Lidocaine 1% (5mL) Wound Examination: Irrigated With Saline, No FB With Wound Exploration Wound Closure: Suture (9) Suture Technique And Material Used: Nylon (3-O) Medical Decision Making Medical Decision Making: Plan: ECG, Blood work, UA and CXR ordered. Tylenol and IV fluids administered. 848 am pt with uti, fever, to be admitted to Dr Cunha, discussed with Dr Cunha and biomedical engineer. Disposition Discussed With .: Enoc Cunha Jr. Doctor Will See Patient In The: Hospital - Disposition Disposition: HOSPITALIZED Disposition Time: 08:49 Condition: STABLE - Clinical Impression Clinical Impression: Urinary tract infection, Fall as cause of accidental injury at home as place of occurrence, Occipital scalp laceration - PA / SOFT TOP INSTALLER / Resident Statement MD/DO has reviewed & agrees with the documentation as recorded. - Scribe Statement The provider has reviewed the documentation as recorded by the Bri Painter All medical record entries made by the Bri were at my direction and personally dictated by me. I have reviewed the chart and agree that the record accurately reflects my personal performance of the history, physical exam, medical decision making, and the department course for this patient. I have also personally directed, reviewed, and agree with the discharge instructions and disposition.
[2017-09-13 07:52] LABS: BASO % 0.3 % (0.0-2.0); EOS # 0.1 K/uL (0.0-0.7); EOS % 0.9 % (0.0-4.0); HEMOGLOBIN 16.7 g/dL (12.0-18.0); LYMPH # 1.5 K/uL (1.0-4.3); LYMPH % 19.2 % (20.0-40.0); MEAN CELL VOLUME 92.9 fL (80.0-94.0); MEAN CORPUSCULAR HEMOGLOBIN 32.4 pg (27.0-31.0); MEAN CORPUSCULAR HGB CONC 34.9 g/dL (33.0-37.0); MEAN PLATELET VOLUME 8.5 fL (7.2-11.7); MONO # 0.7 K/uL (0.0-0.8); MONO % 9.2 % (0.0-10.0); NEUT # 5.4 K/uL (1.8-7.0); NEUT % 70.4 % (50.0-75.0); NRBC % 0.1 % (0.0-2.0); RBC 5.15 Mil/uL (4.40-5.90); RED CELL DISTRIBUTION WIDTH 14.2 % (11.5-14.5); WHITE BLOOD COUNT 7.7 K/uL (4.8-10.8)
[2017-09-13 07:54] LABS: VENOUS BLOOD GAS BASE EXCESS 2.7 mmol/L (0.0-2.0); VENOUS BLOOD GAS PCO2 50 mmHg (40-60); VENOUS BLOOD GAS PO2 17 mm/Hg (30-55); VENOUS BLOOD PH 7.37 (7.32-7.43)
[2017-09-13 07:57] LABS: INR 1.1
[2017-09-13 08:06] LABS: ALB/GLOB RATIO 1.1 (1.0-2.1); ALT/SGPT 31 U/L (21-72); AST/SGOT 51 U/L (17-59); BLOOD UREA NITROGEN 20 mg/dL (9-20); CALCIUM 8.6 mg/dl (8.6-10.4); GFR AFRICAN-AMERICAN > 60; GFR NON-AFRICAN AMERICAN > 60
[2017-09-13 08:31] LABS: SQUAMOUS EPITHIAL 1 /hpf (0-5); URINE BACTERIA FEW (<OCC); URINE BILIRUBIN NEGATIVE (NEGATIVE); URINE BLOOD 1+ (NEGATIVE); URINE CLARITY Hazy (Clear); URINE COLOR Amber (YELLOW); URINE GLUCOSE (UA) 1+ mg/dL (Normal); URINE LEUKOCYTE ESTERASE 3+ Leu/uL (Negative); URINE PROTEIN 1+ mg/dL (NEGATIVE); URINE UROBILINOGEN NORMAL mg/dL (0.2-1.0)
[2017-09-13] MEDS ORDERED: Ciprofloxacin 400mg/200ml D5W 400 MG/200 ML BAG IVPB STA (08:34)
[2017-09-13] MEDS ORDERED: Lidocaine 1% Inj (20ml) INFIL ONE (08:42)
[2017-09-13] MEDS ORDERED: Ciprofloxacin 400mg/200ml D5W 400 MG/200 ML BAG IVPB ONE (08:54)
[2017-09-13] MEDS ORDERED: Lidocaine 1% MPF (30 ml) Inj INFIL ONE (09:00)
--- NOTE | 2017-09-13 09:10 | CP.PCM.HP ---
History of Present Illness - History of Present Illness History of Present Illness: Patient seen and examined at approximately 9AM in the ER. Patient is currently a FULL CODE STATUS at this time. Patient's emergency contact is his dice table operator Clinton Licea . He can be reached at [phone]. CC: I fell HPI: 77 year old male with past medical history significant for High Cholesterol, History of Atrial fibrillation and Questionable CVA within the past 5 years presents after falling in his home earlier this morning. Patient states that he uses a 4 point rolling walker to ambulate. He states that he was moving towards his desk when he lost his footing . In the process of steadying himself, his walker landed on top of him. The patient fell backwards hitting his head. Patient denies loss of consciousness. Patient was alone at the time. He states that he knew where he was . He reached for his telephone and dialed 911. Patient denies headaches, chest pain, palpitations, nausea, vomiting diarrhea, dizziness or paresthesias at this time. PMHx- refer to above PSHx- Shoulder procedure , bilateral cataracts Fam Hx- Aunt had DM Medications- Crestor, ASA 81 mg daily Social Hx- Denies tobacco and illicit drug use; admits to social alcohol use in the past. Allergies- PCN Present on Admission - Present on Admission Any Indicators Present on Admission: No Review of Systems - Constitutional Constitutional: Frequent Falls. absent: Headache - EENT Eyes: absent: Blurred Vision, Change in Vision Ears: Decreased Hearing (chronic- not new) Nose/Mouth/Throat: absent: Nasal Congestion, Nasal Discharge - Cardiovascular Cardiovascular: absent: Chest Pain, Chest Pain at Rest - Respiratory Respiratory: absent: Dyspnea, Dyspnea on Exertion - Gastrointestinal Gastrointestinal: absent: Nausea, Vomiting - Musculoskeletal Musculoskeletal: absent: Back Pain, Numbness - Integumentary Integumentary: Dry Skin. absent: Wounds - Neurological Neurological: Frequent Falls. absent: Abnormal Speech, Behavioral Changes, Convulsions, Headaches, Paresthesias - Endocrine Endocrine: absent: Excessive Sweating, Palpitations Past Patient History - Infectious Disease Hx of Infectious Diseases: None - Tetanus Immunizations Tetanus Immunization: Up to Date - Past Medical History & Family History Past Medical History?: Yes - Past Social History Smoking Status: Never Smoked - CARDIAC Hx Atrial Fibrillation: Yes Hx Cardia Arrhythmia: Yes (atrial flutter with reentrant pathways, SVT) Hx Hypercholesterolemia: Yes Hx Hypertension: Yes Hx Peripheral Edema: Yes - PULMONARY Hx Respiratory Disorders: No - NEUROLOGICAL Hx Transient Ischemic Attacks (TIA): Yes - HEENT Hx HEENT Problems: Yes Hx Cataracts: Yes (B/L) - ENDOCRINE/METABOLIC Hx Endocrine Disorders: No - INTEGUMENTARY Hx Dermatological Problems: No - MUSCULOSKELETAL/RHEUMATOLOGICAL Hx Fractures: Yes (LOW BACK) - GASTROINTESTINAL Hx Gastrointestinal Disorders: Yes Hx Gastroesophageal Reflux: Yes Hx Ulcer: Yes - GENITOURINARY/GYNECOLOGICAL Hx Genitourinary Disorders: Yes (NEUROGENIC BLADDER) Hx Incontinence: Yes 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) - PSYCHIATRIC Hx Anxiety: Yes Hx Substance Use: No - SURGICAL HISTORY Hx Carotid Endarterectomy: Yes (RIGHT) Hx Tonsillectomy: Yes - ANESTHESIA Hx Anesthesia: Yes Hx Anesthesia Reactions: No Hx Malignant Hyperthermia: No Meds Allergies/Adverse Reactions: Allergies Allergy/AdvReac Type Severity Reaction Status Date / Time Penicillins Allergy RASH Verified 09/13/17 06:25 Physical Exam - Constitutional Appears: Non-toxic, No Acute Distress - Head Exam Head Exam: absent: ATRAUMATIC Additional comments: left sided parieto-occipital laceration- stitched, tender to palpation - Eye Exam Eye Exam: EOMI, Normal appearance, PERRL. absent: Conjunctival injection, Periorbital swelling, Periorbital tenderness - Expanded Eye Exam Expanded Pupils: Reactive: Bilateral, Regular/Round: Bilateral - ENT Exam ENT Exam: Mucous Membranes Dry - Neck Exam Neck exam: Positive for: Full Rom - Respiratory Exam Respiratory Exam: NORMAL BREATHING PATTERN. absent: Wheezes - Cardiovascular Exam Cardiovascular Exam: REGULAR RHYTHM, +S1, +S2 - GI/Abdominal Exam GI & Abdominal Exam: Normal Bowel Sounds, Soft. absent: Tenderness - Extremities Exam Extremities exam: Positive for: normal capillary refill, pedal pulses present. Negative for: pedal edema, tenderness - Neurological Exam Neurological exam: Alert, CN II-XII Intact, Oriented x3, Reflexes Normal - Expanded Neurological Exam Expanded Cranial nerves: EOM's Intact: Normal, Tongue Deviation: Normal Cerebellar Function: Finger to Nose: Normal Upper motor neuron: Curtis Neglect: Normal, Sensory Extinction: Normal Sensory exam: Lower Extremity 2 Point Discrimination: Normal, Lower Extremity Light Touch: Normal, Lower Extremity Temperature: Normal, Upper Extremity 2 Point Discrimination: Normal, Upper Extremity Light Touch: Normal, Upper Extremity Temperature: Normal Neuro motor strength exam: Left Upper Extremity: 5, Right Upper Extremity: 5, Left Lower Extremity: 5, Right Lower Extremity: 5 DTR: Achilles Tendon Left: 2+, Achilles Tendon Right: 2+, Brachioradialis Left: 2+, Brachioradialis Right: 2+ Coma Scale Eye Opening: SPONTANEOUS Coma Scale Motor Response: OBEYS COMMANDS - Psychiatric Exam Psychiatric exam: Normal Affect, Normal Mood - Skin Skin Exam: Dry, Warm Additional comments: seborrheic keratoses noted on anterior chest Results - Vital Signs Recent Vital Signs: Last Vital Signs Temp 100.4 F H 09/13/17 08:35 Pulse 79 09/13/17 08:35 Resp 16 09/13/17 08:35 BP 122/83 09/13/17 08:35 Pulse Ox 87 L 09/13/17 08:50 - Labs Result Diagrams: 09/13/17 07:37 09/13/17 07:37 Labs: Laboratory Results - last 24 hr 09/13/17 09/13/17 09/13/17 06:28 07:37 07:37 WBC 7.7 RBC 5.15 Hgb 16.7 Hct 47.8 MCV 92.9 MCH 32.4 H MCHC 34.9 RDW 14.2 Plt Count 235 MPV 8.5 Neut % (Auto) 70.4 Lymph % (Auto) 19.2 L Placer % (Auto) 9.2 Eos % (Auto) 0.9 Baso % (Auto) 0.3 Neut # (Auto) 5.4 Lymph # (Auto) 1.5 Placer # (Auto) 0.7 Eos # (Auto) 0.1 Baso # (Auto) 0.0 PT 12.0 INR 1.1 APTT 33 pO2 VBG pH VBG pCO2 VBG HCO3 VBG Total CO2 VBG O2 Sat (Calc) VBG Base Excess VBG Potassium Glucose Lactate Sodium Potassium Chloride Carbon Dioxide Anion Gap BUN Creatinine Est GFR ( Amer) Est GFR (Non-Af Amer) POC Glucose (mg/dL) 134 H Random Glucose Calcium Phosphorus Magnesium Total Bilirubin AST ALT Alkaline Phosphatase Total Creatine Kinase Troponin I Total Protein Albumin Globulin Albumin/Globulin Ratio Venous Blood Potassium Urine Color Urine Clarity Urine pH Ur Specific [place] Urine Protein Urine Glucose (UA) Urine Ketones Urine Blood Urine Nitrate Urine Bilirubin Urine Urobilinogen Ur Leukocyte Esterase Urine WBC (Auto) Urine RBC (Auto) Ur Squamous Epith Cells Urine Bacteria 09/13/17 09/13/17 09/13/17 07:37 07:50 08:04 WBC RBC Hgb Hct MCV MCH MCHC RDW Plt Count MPV Neut % (Auto) Lymph % (Auto) Placer % (Auto) Eos % (Auto) Baso % (Auto) Neut # (Auto) Lymph # (Auto) Placer # (Auto) Eos # (Auto) Baso # (Auto) PT INR APTT pO2 17 L VBG pH 7.37 VBG pCO2 50 VBG HCO3 25.0 VBG Total CO2 30.4 H VBG O2 Sat (Calc) 31.8 L VBG Base Excess 2.7 H VBG Potassium 3.8 Glucose 114 H Lactate 1.3 Sodium 139 137.0 Potassium 4.1 Chloride 98 101.0 Carbon Dioxide 24 Anion Gap 21 H BUN 20 Creatinine 1.1 Est GFR ( Amer) > 60 Est GFR (Non-Af Amer) > 60 POC Glucose (mg/dL) Random Glucose 103 Calcium 8.6 Phosphorus 3.3 Magnesium 1.9 Total Bilirubin 0.8 AST 51 ALT 31 Alkaline Phosphatase 80 Total Creatine Kinase 33 L Troponin I < 0.0120 Total Protein 7.7 Albumin 4.0 Globulin 3.7 Albumin/Globulin Ratio 1.1 Venous Blood Potassium 3.8 Urine Color Malika Urine Clarity Hazy Urine pH 5.0 Ur Specific [place] 1.027 Urine Protein 1+ H Urine Glucose (UA) 1+ H Urine Ketones Negative Urine Blood 1+ H Urine Nitrate Positive H Urine Bilirubin Negative Urine Urobilinogen Normal Ur Leukocyte Esterase 3+ H Urine WBC (Auto) 52 H Urine RBC (Auto) 6 H Ur Squamous Epith Cells 1 Urine Bacteria Few H Assessment & Plan (1) Occipital scalp laceration Assessment and Plan: Patient sustained a fall earlier Stitched in the ER Neuro exam within normal parameters Fall risk protocol Recurrent falls history- F/U PT evaluation Status: Acute (2) UTI (urinary tract infection) Assessment and Plan: UA positive for UTI. F/U UC On Cipro and Florastor . Started 09/13/17 On maintenance fluids Encourage PO water intake Monitor Status: Acute (3) History of CVA (cerebrovascular accident) Assessment and Plan: ASA 81 mg to begin 09/14/17 at 10AM after monitoring overnight [address] - Negative for intracranial bleed. Age related atrophy noted. Chronic white matter ischemic changes noted without evidence of acute intracranial abnormality. Encephalomalacia noted in the frontal, parietal and temporal regions. Monitor 24 hours before starting prophylactic anticoagulation Status: Chronic (4) Hyperlipidemia Assessment and Plan: On Crestor On ASA to begin 10 am on 09/14/17 F/U lipid Panel in the AM Status: Acute (5) Prophylactic measure Assessment and Plan: Hold anticoagulation until at least monitoring patient for 24 hours post fall. SCDs in place No current indications for GI prophylaxis Status: Acute
--- NOTE | 2017-09-13 09:19 | RAD ---
Chest x-ray single frontal view History: Chest pain. Comparison: 12/17/2016 Findings: Mild venous congestion. Mild patchy increased markings at the left lung base. Mild cardiomegaly. Degenerative changes in the spine and shoulders. Impression: Mild venous congestion. Mild patchy increased markings at the left lung base. Mild cardiomegaly.
[2017-09-13] MEDS ORDERED: Bacitracin 500 Units/gm Oint Foilpak UD ONE (09:54)
[2017-09-13] MEDS: Saccharomyces Boulardi 250 mg Cap PO SCH (17:38)
[2017-09-13] MEDS: Ciprofloxacin 400mg/200ml D5W 400 MG/200 ML BAG IVPB SCH (17:38)
[2017-09-14] MEDS: Ciprofloxacin 400mg/200ml D5W 400 MG/200 ML BAG IVPB SCH ×2 (06:00→17:22)
[2017-09-14 06:32] LABS: BASO % 0.3 % (0.0-2.0); EOS # 0.1 K/uL (0.0-0.7); EOS % 1.5 % (0.0-4.0); HEMOGLOBIN 15.5 g/dL (12.0-18.0); LYMPH # 1.9 K/uL (1.0-4.3); LYMPH % 35.2 % (20.0-40.0); MEAN CELL VOLUME 92.6 fL (80.0-94.0); MEAN CORPUSCULAR HGB CONC 34.6 g/dL (33.0-37.0); MEAN PLATELET VOLUME 8.4 fL (7.2-11.7); MONO # 0.5 K/uL (0.0-0.8); NEUT # 2.9 K/uL (1.8-7.0); NRBC % 0.5 % (0.0-2.0); RBC 4.85 Mil/uL (4.40-5.90); RED CELL DISTRIBUTION WIDTH 14.3 % (11.5-14.5); WHITE BLOOD COUNT 5.4 K/uL (4.8-10.8)
[2017-09-14 06:46] LABS: BLOOD UREA NITROGEN 16 mg/dL (9-20); CALCIUM 7.9 mg/dl (8.6-10.4); GFR AFRICAN-AMERICAN > 60; GFR NON-AFRICAN AMERICAN > 60
[2017-09-14 07:08] LABS: HDL CHOLESTEROL 27 mg/dL (30-70)
[2017-09-14 07:18] LABS: LDL CHOLESTEROL 72 mg/dL (0-129)
[2017-09-14] MEDS: Saccharomyces Boulardi 250 mg Cap PO SCH ×2 (10:02→17:23)
--- NOTE | 2017-09-14 22:29 | CP.PCM.PN ---
<Joselo Andino - Last Filed: 09/14/17 22:26> Subjective - Date & Time of Evaluation Date of Evaluation: 09/14/17 Time of Evaluation: 22:26 - Subjective Subjective: patient seen and examined at bedside ambulating with PT tolerating diet no complaints at this time Objective - Vital Signs/Intake and Output Vital Signs (last 24 hours): Temp Pulse Resp BP Pulse Ox 97.5 F L 70 14 131/78 99 09/14/17 16:00 09/14/17 18:30 09/14/17 16:00 09/14/17 16:00 09/14/17 18:30 Intake and Output: 09/14/17 09/15/17 18:59 06:59 Intake Total 800 Output Total 300 Balance 500 - Medications Medications: Current Medications Acetaminophen (Tylenol 325mg Tab) 650 mg PO Q6 PRN PRN Reason: Fever >100.4 F Last Admin: 09/14/17 19:59 Dose: 650 mg Aspirin (Aspirin Chewable) 81 mg PO DAILY [facility] Last Admin: 09/14/17 10:00 Dose: Not Given Ciprofloxacin (Cipro 400mg/200ml Dsw) 400 mg in 200 mls @ 133 mls/hr IVPB Q12H [facility] PRN Reason: Protocol Last Admin: 09/14/17 17:22 Dose: 133 mls/hr Rosuvastatin Calcium (Crestor) 5 mg PO HS [facility] Last Admin: 09/14/17 21:39 Dose: 5 mg Saccharomyces Boulardii (Florastor) 250 mg PO BID [facility] Last Admin: 09/14/17 17:23 Dose: 250 mg - Labs Labs: 09/14/17 06:18 09/14/17 06:18 PT 12.0 SECONDS (9.7-12.2) 09/13/17 07:37 INR 1.1 09/13/17 07:37 APTT 33 SECONDS (21-34) 09/13/17 07:37 - Constitutional Appears: Well - Head Exam Head Exam: ATRAUMATIC, NORMAL INSPECTION, NORMOCEPHALIC - Eye Exam Eye Exam: EOMI, Normal appearance, PERRL Pupil Exam: NORMAL ACCOMODATION, PERRL - ENT Exam ENT Exam: Mucous Membranes Moist, Normal Exam - Neck Exam Neck Exam: Full ROM, Normal Inspection. absent: Lymphadenopathy - Respiratory Exam Respiratory Exam: Clear to Ausculation Bilateral, NORMAL BREATHING PATTERN - Cardiovascular Exam Cardiovascular Exam: REGULAR RHYTHM, +S1, +S2. absent: Murmur - GI/Abdominal Exam GI & Abdominal Exam: Soft, Normal Bowel Sounds. absent: Tenderness - Extremities Exam Extremities Exam: Full ROM, Normal Capillary Refill, Normal Inspection. absent : Joint Swelling, Pedal Edema - Back Exam Back Exam: NORMAL INSPECTION - Neurological Exam Neurological Exam: Alert, Awake, CN II-XII Intact, Normal Gait, Oriented x3 - Psychiatric Exam Psychiatric exam: Normal Affect, Normal Mood - Skin Skin Exam: Dry, Intact, Normal Color, Warm Assessment and Plan - Assessment and Plan (Free Text) Assessment: (1) Occipital scalp laceration Assessment and Plan: Patient sustained a fall earlier Stitched in the ER Neuro exam within normal parameters Fall risk protocol Recurrent falls history- F/U PT evaluation Status: Acute (2) UTI (urinary tract infection) Assessment and Plan: UA positive for UTI. F/U UC On Cipro and Florastor . Started 09/13/17 On maintenance fluids Encourage PO water intake Monitor Status: Acute (3) History of CVA (cerebrovascular accident) Assessment and Plan: ASA 81 mg to begin 09/14/17 at 10AM after monitoring overnight [address] - Negative for intracranial bleed. Age related atrophy noted. Chronic white matter ischemic changes noted without evidence of acute intracranial abnormality. Encephalomalacia noted in the frontal, parietal and temporal regions. Monitor 24 hours before starting prophylactic anticoagulation Status: Chronic (4) Hyperlipidemia Assessment and Plan: On Crestor On ASA to begin 10 am on 09/14/17 F/U lipid Panel in the AM Status: Acute (5) Prophylactic measure Assessment and Plan: Hold anticoagulation until at least monitoring patient for 24 hours post fall. SCDs in place No current indications for GI prophylaxis Status: Acute <Enoc Cunha Jr. - Last Filed: 09/18/17 13:40> Objective - Vital Signs/Intake and Output Vital Signs (last 24 hours): Temp Pulse Resp BP Pulse Ox 97.7 F 62 20 128/84 95 09/17/17 07:00 09/17/17 07:00 09/17/17 07:00 09/17/17 07:00 09/17/17 07:00 - Labs Labs: 09/16/17 06:57 09/16/17 06:57 PT 12.0 SECONDS (9.7-12.2) 09/13/17 07:37 INR 1.1 09/13/17 07:37 APTT 33 SECONDS (21-34) 09/13/17 07:37 Attending/Attestation - Attestation I have personally seen and examined this patient.: Yes I have fully participated in the care of the patient.: Yes I have reviewed all pertinent clinical information, including history, physical exam and plan: Yes Notes (Text): 09/18/17 13:40 Agree with resident note findings and plan of care
[2017-09-15] MEDS: Ciprofloxacin 400mg/200ml D5W 400 MG/200 ML BAG IVPB SCH ×2 (05:23→17:11)
[2017-09-15] MEDS: Saccharomyces Boulardi 250 mg Cap PO SCH ×2 (10:07→17:11)
--- NOTE | 2017-09-15 11:26 | CP.PCM.PN ---
<Joselo Andino - Last Filed: 09/15/17 15:26> Subjective - Date & Time of Evaluation Date of Evaluation: 09/15/17 Time of Evaluation: 11:26 - Subjective Subjective: patient seen and examined at bedside Doing well states he has some soreness in the back of the head after the fall No other complaints at this time. Objective - Vital Signs/Intake and Output Vital Signs (last 24 hours): Temp Pulse Resp BP Pulse Ox 98.3 F 69 18 124/65 94 L 09/15/17 07:55 09/15/17 07:55 09/15/17 07:55 09/15/17 07:55 09/15/17 07:55 Intake and Output: 09/15/17 09/15/17 06:59 18:59 Intake Total 550 Output Total 800 Balance -250 - Medications Medications: Current Medications Aspirin (Aspirin Chewable) 81 mg PO DAILY [facility] Last Admin: 09/15/17 10:07 Dose: 81 mg Ciprofloxacin (Cipro 400mg/200ml Dsw) 400 mg in 200 mls @ 133 mls/hr IVPB Q12H [facility] PRN Reason: Protocol Last Admin: 09/15/17 05:23 Dose: 133 mls/hr Rosuvastatin Calcium (Crestor) 5 mg PO HS [facility] Last Admin: 09/14/17 21:39 Dose: 5 mg Saccharomyces Boulardii (Florastor) 250 mg PO BID [facility] Last Admin: 09/15/17 10:07 Dose: 250 mg - Labs Labs: 09/14/17 06:18 09/14/17 06:18 PT 12.0 SECONDS (9.7-12.2) 09/13/17 07:37 INR 1.1 09/13/17 07:37 APTT 33 SECONDS (21-34) 09/13/17 07:37 - Constitutional Appears: Well - Head Exam Additional comments: 3-4cm lac closed with nylon sutures C/D/I - Eye Exam Eye Exam: EOMI, Normal appearance, PERRL Pupil Exam: NORMAL ACCOMODATION, PERRL - ENT Exam ENT Exam: Mucous Membranes Moist, Normal Exam - Neck Exam Neck Exam: Full ROM, Normal Inspection. absent: Lymphadenopathy - Respiratory Exam Respiratory Exam: Clear to Ausculation Bilateral, NORMAL BREATHING PATTERN - Cardiovascular Exam Cardiovascular Exam: REGULAR RHYTHM, +S1, +S2. absent: Murmur - GI/Abdominal Exam GI & Abdominal Exam: Soft, Normal Bowel Sounds. absent: Tenderness - Extremities Exam Extremities Exam: Full ROM, Normal Capillary Refill, Normal Inspection. absent : Joint Swelling, Pedal Edema - Back Exam Back Exam: NORMAL INSPECTION - Neurological Exam Neurological Exam: Alert, Awake, CN II-XII Intact, Normal Gait, Oriented x3 - Psychiatric Exam Psychiatric exam: Normal Affect, Normal Mood - Skin Skin Exam: Dry, Intact, Normal Color, Warm Assessment and Plan - Assessment and Plan (Free Text) Assessment: (1) Occipital scalp laceration Assessment and Plan: Patient sustained a fall earlier Stitched in the ER Neuro exam within normal parameters Fall risk protocol F/U PT reccs Status: Acute (2) UTI (urinary tract infection) Assessment and Plan: UA positive for UTI. UC Enterobacter + sensitive to cipro On Cipro and Florastor . Started 09/13/17 NS @ 60 Status: Acute (3) Hyperlipidemia Assessment and Plan: On Crestor Status: Acute (4) Prophylactic measure Assessment and Plan: SCDs in place No current indications for GI prophylaxis Lovenox 30 SC QD Status: Acute <Enoc Cunha Jr. - Last Filed: 09/18/17 13:42> Objective - Vital Signs/Intake and Output Vital Signs (last 24 hours): Temp Pulse Resp BP Pulse Ox 97.7 F 62 20 128/84 95 09/17/17 07:00 09/17/17 07:00 09/17/17 07:00 09/17/17 07:00 09/17/17 07:00 - Labs Labs: 09/16/17 06:57 09/16/17 06:57 PT 12.0 SECONDS (9.7-12.2) 09/13/17 07:37 INR 1.1 09/13/17 07:37 APTT 33 SECONDS (21-34) 09/13/17 07:37 Attending/Attestation - Attestation I have personally seen and examined this patient.: Yes I have fully participated in the care of the patient.: Yes I have reviewed all pertinent clinical information, including history, physical exam and plan: Yes Notes (Text): 09/18/17 13:42 Agree with resident note findings and plan of care
[2017-09-15] MEDS ORDERED: Bacitracin 500 Units/gm Oint Foilpak UD TOP ONE (15:43)
[2017-09-15] MEDS: Sodium Chloride 0.9% 1,000 ML IV SCH (15:44)
[2017-09-15] MEDS: Enoxaparin 30 mg Syringe SC SCH (16:49)
[2017-09-15] MEDS: Bacitracin 500 Units/gm Oint Foilpak UD TOP SCH (21:24)
[2017-09-16] MEDS: Ciprofloxacin 400mg/200ml D5W 400 MG/200 ML BAG IVPB SCH (05:36)
[2017-09-16 07:19] LABS: BASO % 0.3 % (0.0-2.0); EOS # 0.2 K/uL (0.0-0.7); EOS % 3.9 % (0.0-4.0); HEMOGLOBIN 15.4 g/dL (12.0-18.0); LYMPH # 1.7 K/uL (1.0-4.3); LYMPH % 37.6 % (20.0-40.0); MEAN CELL VOLUME 91.6 fL (80.0-94.0); MEAN CORPUSCULAR HEMOGLOBIN 31.7 pg (27.0-31.0); MEAN CORPUSCULAR HGB CONC 34.6 g/dL (33.0-37.0); MEAN PLATELET VOLUME 8.5 fL (7.2-11.7); MONO # 0.4 K/uL (0.0-0.8); MONO % 7.9 % (0.0-10.0); NEUT # 2.2 K/uL (1.8-7.0); NEUT % 50.3 % (50.0-75.0); NRBC % 0.5 % (0.0-2.0); RBC 4.86 Mil/uL (4.40-5.90); RED CELL DISTRIBUTION WIDTH 13.9 % (11.5-14.5); WHITE BLOOD COUNT 4.5 K/uL (4.8-10.8)
[2017-09-16] MEDS ORDERED: Lidocaine 2% Jelly (30 ml) TOP ONE (07:38)
[2017-09-16] MEDS ORDERED: Bisacodyl 5mg EC Tab PO ONE (07:42)
[2017-09-16 08:14] LABS: ALB/GLOB RATIO 0.9 (1.0-2.1); ALT/SGPT 36 U/L (21-72); AST/SGOT 39 U/L (17-59); BLOOD UREA NITROGEN 12 mg/dL (9-20); CALCIUM 7.6 mg/dl (8.6-10.4); GFR AFRICAN-AMERICAN > 60; GFR NON-AFRICAN AMERICAN > 60
[2017-09-16] MEDS: Saccharomyces Boulardi 250 mg Cap PO SCH ×2 (10:01→17:31)
[2017-09-16] MEDS: Bacitracin 500 Units/gm Oint Foilpak UD TOP SCH (10:01)
[2017-09-16] MEDS: Enoxaparin 30 mg Syringe SC SCH (10:01)
[2017-09-16] MEDS: Sodium Chloride 0.9% 1,000 ML IV SCH (10:02)
[2017-09-16] MEDS: Calcium Carbonate 500 mg Chewable Antacid Tab PO SCH ×2 (10:02→21:30)
--- NOTE | 2017-09-16 14:34 | CP.PCM.PN ---
<Joselo Andino - Last Filed: 09/16/17 14:31> Subjective - Date & Time of Evaluation Date of Evaluation: 09/16/17 Time of Evaluation: 14:32 - Subjective Subjective: patient seen adn examined at bedside complaining of soreness around the laceration on the back of the head when rests it against the pillow denies fevers or chills, no nausea or vomiting does not want catheter. No other complaints at this time Objective - Vital Signs/Intake and Output Vital Signs (last 24 hours): Temp Pulse Resp BP Pulse Ox 97.7 F 72 20 102/69 97 09/16/17 07:30 09/16/17 07:30 09/16/17 07:30 09/16/17 07:30 09/16/17 07:30 Intake and Output: 09/16/17 09/16/17 06:59 18:59 Intake Total 400 Output Total 150 Balance 250 - Medications Medications: Current Medications Aspirin (Aspirin Chewable) 81 mg PO DAILY [facility] Last Admin: 09/16/17 10:01 Dose: 81 mg Bacitracin (Bacitracin) 1 ea TOP DAILY [facility] Last Admin: 09/16/17 10:01 Dose: 1 ea Calcium Carbonate (Tums) 500 mg PO BID [facility] Last Admin: 09/16/17 10:02 Dose: Not Given Enoxaparin Sodium (Lovenox) 30 mg SC DAILY [facility] Last Admin: 09/16/17 10:01 Dose: 30 mg Ciprofloxacin (Cipro 400mg/200ml Dsw) 400 mg in 200 mls @ 133 mls/hr IVPB Q12H [facility] PRN Reason: Protocol Last Admin: 09/16/17 05:36 Dose: 133 mls/hr Sodium Chloride (Sodium Chloride 0.9%) 1,000 mls @ 60 mls/hr IV .[id number] [facility] Last Admin: 09/16/17 10:02 Dose: 60 mls/hr Rosuvastatin Calcium (Crestor) 5 mg PO HS [facility] Last Admin: 09/15/17 21:24 Dose: 5 mg Saccharomyces Boulardii (Florastor) 250 mg PO BID [facility] Last Admin: 09/16/17 10:01 Dose: 250 mg - Labs Labs: 09/16/17 06:57 09/16/17 06:57 PT 12.0 SECONDS (9.7-12.2) 09/13/17 07:37 INR 1.1 09/13/17 07:37 APTT 33 SECONDS (21-34) 09/13/17 07:37 - Constitutional Appears: Well - Head Exam Additional comments: 3-4 cm laceration on the back of head. /d/I with no evidence of infection - Eye Exam Eye Exam: EOMI, Normal appearance, PERRL Pupil Exam: NORMAL ACCOMODATION, PERRL - ENT Exam ENT Exam: Mucous Membranes Moist, Normal Exam - Neck Exam Neck Exam: Full ROM, Normal Inspection. absent: Lymphadenopathy - Respiratory Exam Respiratory Exam: Clear to Ausculation Bilateral, NORMAL BREATHING PATTERN - Cardiovascular Exam Cardiovascular Exam: REGULAR RHYTHM, +S1, +S2. absent: Murmur - GI/Abdominal Exam GI & Abdominal Exam: Soft, Normal Bowel Sounds. absent: Tenderness - Extremities Exam Extremities Exam: Full ROM, Normal Capillary Refill, Normal Inspection. absent : Joint Swelling, Pedal Edema - Back Exam Back Exam: NORMAL INSPECTION - Neurological Exam Neurological Exam: Alert, Awake, CN II-XII Intact, Normal Gait, Oriented x3 - Psychiatric Exam Psychiatric exam: Normal Affect, Normal Mood - Skin Skin Exam: Dry, Intact, Normal Color, Warm Assessment and Plan - Assessment and Plan (Free Text) Assessment: (1) Occipital scalp laceration Assessment and Plan: Patient sustained a fall earlier Stitched in the ER Neuro exam within normal parameters Fall risk protocol F/U PT reccs Status: Acute (2) UTI (urinary tract infection) Assessment and Plan: UA positive for UTI. UC Enterobacter + sensitive to cipro On Cipro and Florastor . Started 09/13/17 NS @ 60 Status: Acute (3) Hyperlipidemia Assessment and Plan: On Crestor Status: Acute (4) Prophylactic measure Assessment and Plan: SCDs in place No current indications for GI prophylaxis Lovenox 30 SC QD Status: Acute <Enoc Cunha Jr. - Last Filed: 09/18/17 13:43> Objective - Vital Signs/Intake and Output Vital Signs (last 24 hours): Temp Pulse Resp BP Pulse Ox 97.7 F 62 20 128/84 95 09/17/17 07:00 09/17/17 07:00 09/17/17 07:00 09/17/17 07:00 09/17/17 07:00 - Labs Labs: 09/16/17 06:57 09/16/17 06:57 PT 12.0 SECONDS (9.7-12.2) 09/13/17 07:37 INR 1.1 09/13/17 07:37 APTT 33 SECONDS (21-34) 09/13/17 07:37 Attending/Attestation - Attestation I have personally seen and examined this patient.: Yes I have fully participated in the care of the patient.: Yes I have reviewed all pertinent clinical information, including history, physical exam and plan: Yes Notes (Text): 09/18/17 13:43 Agree with resident note findings and plan of care
[2017-09-17 00:42] VITALS: RESP 20
[2017-09-17] MEDS: Sodium Chloride 0.9% 1,000 ML IV SCH (04:39)
[2017-09-17 08:02] VITALS: BP 128/84; PULSE 62; TEMP 97.7; O2SAT 95
--- NOTE | 2017-09-17 09:02 | CP.PCM.DIS ---
Provider - Provider Date of Admission: 09/14/17 09:43 Attending physician: Enoc Cunha Jr, MD Time Spent in preparation of Discharge (in minutes): 45 Hospital Course - Lab Results Lab Results: Micro Results 09/13/17 08:20 Blood Blood Culture - Preliminary NO GROWTH AFTER 3 DAYS 09/13/17 07:30 Blood Blood Culture - Preliminary NO GROWTH AFTER 3 DAYS 09/15/17 01:26 Nose MRSA Culture - Final MRSA NOT DETECTED 09/13/17 07:51 Urine,Catheterized Urine Culture - Final Enterobacter Cloacae Ssp Cloac 09/13/17 15:28 Naris MRSA Culture (Admit) - Final MRSA NOT DETECTED Most Recent Lab Values WBC 4.5 K/uL (4.8-10.8) L 09/16/17 06:57 RBC 4.86 Mil/uL (4.40-5.90) 09/16/17 06:57 Hgb 15.4 g/dL (12.0-18.0) 09/16/17 06:57 Hct 44.5 % (35.0-51.0) 09/16/17 06:57 MCV 91.6 fL (80.0-94.0) 09/16/17 06:57 MCH 31.7 pg (27.0-31.0) H 09/16/17 06:57 MCHC 34.6 g/dL (33.0-37.0) 04 06:57 RDW 13.9 % (11.5-14.5) 09/16/17 06:57 Plt Count 188 K/uL (130-400) 09/16/17 06:57 MPV 8.5 fL (7.2-11.7) 09/16/17 06:57 Neut % (Auto) 50.3 % (50.0-75.0) 09/16/17 06:57 Lymph % (Auto) 37.6 % (20.0-40.0) 09/16/17 06:57 Glynn % (Auto) 7.9 % (0.0-10.0) 09/16/17 06:57 Eos % (Auto) 3.9 % (0.0-4.0) 09/16/17 06:57 Baso % (Auto) 0.3 % (0.0-2.0) 09/16/17 06:57 Neut # (Auto) 2.2 K/uL (1.8-7.0) 09/16/17 06:57 Lymph # (Auto) 1.7 K/uL (1.0-4.3) 09/16/17 06:57 Glynn # (Auto) 0.4 K/uL (0.0-0.8) 09/16/17 06:57 Eos # (Auto) 0.2 K/uL (0.0-0.7) 09/16/17 06:57 Baso # (Auto) 0.0 K/uL (0.0-0.2) 09/16/17 06:57 PT 12.0 SECONDS (9.7-12.2) 09/13/17 07:37 INR 1.1 09/13/17 07:37 APTT 33 SECONDS (21-34) 09/13/17 07:37 pO2 17 mm/Hg (30-55) L 09/13/17 07:50 VBG pH 7.37 (7.32-7.43) 09/13/17 07:50 VBG pCO2 50 mmHg (40-60) 09/13/17 07:50 VBG HCO3 25.0 mmol/L 09/13/17 07:50 VBG Total CO2 30.4 mmol/L (22-28) H 09/13/17 07:50 VBG O2 Sat (Calc) 31.8 % (40-65) L 09/13/17 07:50 VBG Base Excess 2.7 mmol/L (0.0-2.0) H 09/13/17 07:50 VBG Potassium 3.8 mmol/L (3.6-5.2) 09/13/17 07:50 Sodium 137.0 mmol/l (132-148) 09/13/17 07:50 Chloride 101.0 mmol/L (98-107) 09/13/17 07:50 Glucose 114 mg/dl (75-110) H 09/13/17 07:50 Lactate 1.3 mmol/L (0.7-2.1) 09/13/17 07:50 Sodium 136 mmol/L (132-148) 09/16/17 06:57 Potassium 3.8 mmol/L (3.6-5.2) 09/16/17 06:57 Chloride 101 mmol/L (98-107) 09/16/17 06:57 Carbon Dioxide 26 mmol/L (22-30) 09/16/17 06:57 Anion Gap 13 (10-20) 09/16/17 06:57 BUN 12 mg/dL (9-20) 09/16/17 06:57 Creatinine 0.9 mg/dL (0.8-1.5) 09/16/17 06:57 Est GFR ( Amer) > 60 09/16/17 06:57 Est GFR (Non-Af Amer) > 60 09/16/17 06:57 POC Glucose (mg/dL) 134 mg/dL (65-110) H 09/13/17 06:28 Random Glucose 127 mg/dL (75-110) H 09/16/17 06:57 Calcium 7.6 mg/dl (8.6-10.4) L 09/16/17 06:57 Phosphorus 2.6 mg/dL (2.5-4.5) 09/16/17 06:57 Magnesium 1.8 mg/dL (1.6-2.3) 09/16/17 06:57 Total Bilirubin 0.5 mg/dL (0.2-1.3) 09/16/17 06:57 AST 39 U/L (17-59) 09/16/17 06:57 ALT 36 U/L (21-72) 09/16/17 06:57 Alkaline Phosphatase 64 U/L (38-126) 09/16/17 06:57 Total Creatine Kinase 33 U/L (55-170) L 09/13/17 07:37 Troponin I < 0.0120 ng/mL (0.00-0.120) 09/13/17 07:37 Total Protein 6.3 g/dL (6.3-8.3) 09/16/17 06:57 Albumin 3.0 g/dL (3.5-5.0) L D 09/16/17 06:57 Globulin 3.2 gm/dL (2.2-3.9) 09/16/17 06:57 Albumin/Globulin Ratio 0.9 (1.0-2.1) L 09/16/17 06:57 Triglycerides 76 mg/dL (0-149) D 09/14/17 06:18 Cholesterol 118 mg/dL (0-199) 09/14/17 06:18 LDL Cholesterol Direct 72 mg/dL (0-129) 09/14/17 06:18 HDL Cholesterol 27 mg/dL (30-70) L 09/14/17 06:18 Venous Blood Potassium 3.8 mmol/L (3.6-5.2) 09/13/17 07:50 Urine Color Malika (YELLOW) 09/13/17 08:04 Urine Clarity Hazy (Clear) 09/13/17 08:04 Urine pH 5.0 (5.0-8.0) 09/13/17 08:04 Ur Specific Whitmore 1.027 (1.003-1.030) 09/13/17 08:04 Urine Protein 1+ mg/dL (NEGATIVE) H 09/13/17 08:04 Urine Glucose (UA) 1+ mg/dL (Normal) H 09/13/17 08:04 Urine Ketones Negative mg/dL (NEGATIVE) 09/13/17 08:04 Urine Blood 1+ (NEGATIVE) H 09/13/17 08:04 Urine Nitrate Positive (NEGATIVE) H 09/13/17 08:04 Urine Bilirubin Negative (NEGATIVE) 09/13/17 08:04 Urine Urobilinogen Normal mg/dL (0.2-1.0) 09/13/17 08:04 Ur Leukocyte Esterase 3+ Moise/uL (Negative) H 09/13/17 08:04 Urine WBC (Auto) 52 /hpf (0-5) H 09/13/17 08:04 Urine RBC (Auto) 6 /hpf (0-3) H 09/13/17 08:04 Ur Squamous Epith Cells 1 /hpf (0-5) 09/13/17 08:04 Urine Bacteria Few (<OCC) H 09/13/17 08:04 - Hospital Course Hospital Course: 77 year old male with past medical history significant for High Cholesterol, History of Atrial fibrillation and Questionable CVA within the past 5 years presents after falling in his home earlier this morning. Patient states that he uses a 4 point rolling walker to ambulate. He states that he was moving towards his desk when he lost his footing . In the process of steadying himself, his walker landed on top of him. The patient fell backwards hitting his head. Patient denies loss of consciousness. Patient was alone at the time. He states that he knew where he was . He reached for his telephone and dialed 911. Patient denies headaches, chest pain, palpitations, nausea, vomiting diarrhea, dizziness or paresthesias at this time. Patient was started on ciprofloxacin. Patients Urine culture came back sensitive to cipro. Will Discharge to [facility] on antibiotics for additional 5 days. The remainder of his stay was uncomplicated. Discharge Exam - Head Exam Head Exam: ATRAUMATIC, NORMAL INSPECTION, NORMOCEPHALIC - Additional Findings Additional findings: - Constitutional Appears: Well - Head Exam Additional comments: 3-4 cm laceration on the back of head. /d/I with no evidence of infection - Eye Exam Eye Exam: EOMI, Normal appearance, PERRL Pupil Exam: NORMAL ACCOMODATION, PERRL - ENT Exam ENT Exam: Mucous Membranes Moist, Normal Exam - Neck Exam Neck Exam: Full ROM, Normal Inspection. absent: Lymphadenopathy - Respiratory Exam Respiratory Exam: Clear to Ausculation Bilateral, NORMAL BREATHING PATTERN - Cardiovascular Exam Cardiovascular Exam: REGULAR RHYTHM, +S1, +S2. absent: Murmur - GI/Abdominal Exam GI & Abdominal Exam: Soft, Normal Bowel Sounds. absent: Tenderness - Extremities Exam Extremities Exam: Full ROM, Normal Capillary Refill, Normal Inspection. absent : Joint Swelling, Pedal Edema - Back Exam Back Exam: NORMAL INSPECTION - Neurological Exam Neurological Exam: Alert, Awake, CN II-XII Intact, Normal Gait, Oriented x3 - Psychiatric Exam Psychiatric exam: Normal Affect, Normal Mood - Skin Skin Exam: Dry, Intact, Normal Color, Warm Discharge Plan - Follow Up Plan Condition: STABLE Disposition: REHAB FACILITY/REHAB UNIT Instructions: Fall Prevention for Older Adults (GEN), Fall Prevention (DC), Urinary Tract Infection in Women (DC), Urinary Tract Infection in Men (DC), Dysuria (GEN) Additional Instructions: Discharge to [facility] for rehab Continue taking cipro 500 BID for 5 more days Come back to the ED if symptoms return Remove sutures in 7 days Referrals: Non [facility] Provider, [Non-Staff] -
[2017-09-17] MEDS: Saccharomyces Boulardi 250 mg Cap PO SCH (09:45)
[2017-09-17] MEDS: Enoxaparin 30 mg Syringe SC SCH (09:45)
[2017-09-17] MEDS: Calcium Carbonate 500 mg Chewable Antacid Tab PO SCH (09:45)
[2017-09-17] MEDS: Bacitracin 500 Units/gm Oint Foilpak UD TOP SCH (09:45)
--- NOTE | 2017-09-17 23:05 | CARD ---
APPROVED REPORT EKG Measurement Heart [id number] CO 208P [id number] <Conclusion> Normal sinus rhythm Normal ECG
== END 2017-09-17 15:17 | DRG 690 ==
LOC: SUPCPDRO 06:21 → C.ER 06:21 → C.9E 08:50 → C.9I 14:03 → OBSVTOIN 09-14 09:43 → C.6T 09-15 01:50
PROVIDERS: ADMIT Internal Medicine; ATTEND Internal Medicine
PROC: 0HQ0XZZ Repair Scalp Skin, External Approach (ICD-10-PCS; principal; 2017-09-14)
DX: N39.0 Urinary tract infection, site not specified (principal); S01.01XA Laceration without foreign body of scalp, initial encounter; W19.XXXA Unspecified fall, initial encounter; Y92.009 Unspecified place in unspecified non-institutional (private) residence as the place of occurrence of the external cause; K21.9 Gastro-esophageal reflux disease without esophagitis; I48.91 Unspecified atrial fibrillation; I10 Essential (primary) hypertension; E78.5 Hyperlipidemia, unspecified

== ENCOUNTER 2017-11-13 10:59 | Emergency (ER) | payer MEDICARE, BC ==
[2017-11-13 10:59] VITALS: BMI 23.6
[2017-11-13 11:29] VITALS: RESP 18; TEMP 98.3
[2017-11-13] MEDS ORDERED: Lidocaine 2% w Epi 1:100,000 Inj IJ STA (11:51)
--- NOTE | 2017-11-13 14:01 | CT ---
PROCEDURE: CT scan maxillofacial skeleton 11/13/2017 HISTORY: Rule out mandibular fracture. COMPARISON: Comparison made with CT scan brain dated 09/13/[address] scan orbits 01/23/2017. TECHNIQUE: Contiguous axial CT images of the maxillofacial bones were obtained. Coronal and sagittal reformats were generated. Radiation dose: Total exam DLP = 835.81 mGy-cm. This CT exam was performed using one or more of the following dose reduction techniques: Automated exposure control, adjustment of the mA and/or kV according to patient size, and/or use of iterative reconstruction technique. FINDINGS: Old left-sided nasal bone fracture deformity felt be present. NASAL BONES: Old left-sided anterior nasal bone fracture deformities felt present. There is fairly significant focal leftward deviation of the mid-posterior nasal septum. ORBITS: Orbits and contents unremarkable. The globes are intact. Changes of bilateral cataract surgery present. PARANASAL SINUSES/ MASTOIDS: Paranasal sinuses well-developed and currently well-aerated. There appears to be some minimal mucosal thickening right maxillary antrum. No other significant mucoperiosteal inflammatory changes or significant. No gross fluid levels. Minor mucosal thickening 1 or 2 ethmoid air cells. Mastoid air complexes are unremarkable. MAXILLA: There is a small fracture line extending through the left parasagittal anterior maxillary alveolus possibly adjacent to or through the socket for the central incisor tooth which is somewhat foreshortened in length though unchanged centrally from prior exam. There is more prominent appearance of the sockets suggesting loosening. The socket of the left lateral incisor is also widened about the root of this tooth suggesting loosening. Questionable loosening of the right canine root also demonstrating slight widening of the this socket. . . Poor dentition with apparent diffuse dental caries. Clinical correlation with dental exam. MANDIBLE/ TEMPOROMANDIBULAR JOINTS: There is a fracture of the neck of the right aspect of the mandible with slight proximal distraction with medial location of the distal of neck and body and lateral displacement of the smaller condylar neck fragment. SKULL BASE: Unremarkable. TEMPORAL BONES: Middle ears and mastoid grossly unremarkable. OTHER FINDINGS: None. IMPRESSION: There is a fracture at the level of the neck of the right aspect of the mandible with slight proximal distraction and displacement of the fragments as described. There also appears to be a short fracture line seen traversing the left parasagittal anterior maxillary alveolus of possibly extending through the socket of the left incisor tooth which may be lucent. Questionable loosening of the left lateral incisor and right canine. Poor dentition as described Changes of bilateral cataract surgery
[2017-11-13 14:49] VITALS: BP 151/88; PULSE 78; O2SAT 96
--- NOTE | 2017-11-13 16:25 | C.PDOC ---
History Of Present Illness 77 y/o male brought to ER by ambulance for evaluation of jaw pain s/p trip and fall today. Patient reports that he was getting out of a car when when he slipped and struck his chin when he fell on the ground. Patient states that he is usually unsteady on his feet and he uses a cane.Patient denies having LOC and symptoms prior to fall. - HPI Chief Complaint (Nursing): Trauma History Per: Patient History/Exam Limitations: no limitations Onset/Duration Of Symptoms: Hrs Severity: Moderate Past Medical History Reviewed: Historical Data, Nursing Documentation, Vital Signs Vital Signs: Last Vital Signs Temp 98.3 F 11/13/17 11:16 Pulse 78 11/13/17 14:48 Resp 18 11/13/17 14:48 BP 151/88 H 11/13/17 14:48 Pulse Ox 96 11/13/17 16:42 - Medical History PMH: Anxiety, Atrial Fibrillation, Cardia Arrhythmia (atrial flutter with reentrant pathways, SVT), Fractures (LOW BACK), HTN, Hypercholesterolemia, Peripheral Edema, TIA Surgical History: Carotid Endarterectomy (RIGHT), Endoscopy, Tonsillectomy - [facility] Procedures ENDOSC POLYPECTOMY OF LG INTEST (09/08/14) REPAIR SCALP SKIN, EXTERNAL APPROACH (09/14/17) Family History: States: No Known Family Hx - Social History Hx Tobacco Use: No Hx Alcohol Use: Yes (occasional) Hx Substance Use: No - Immunization History Hx Tetanus Toxoid Vaccination: Yes (1 month ago per pt) Hx Influenza Vaccination: Yes Hx Pneumococcal Vaccination: Yes Review Of Systems Except As Marked, All Systems Reviewed And Found Negative. ENT: Positive for: Other (jaw pain) Physical Exam - Physical Exam Appears: Non-toxic, No Acute Distress Skin: Normal Color, Warm, Dry, Other (2 cm laceration underneath chin) Head: Atraumatic, Normacephalic Eye(s): bilateral: Normal Inspection Nose: Normal Oral Mucosa: Moist Teeth: No Normal Dentition (poor dentition) Gingiva: Normal Appearing Throat: Normal, No Erythema, No Exudate Neck: Supple Chest: Symmetrical Cardiovascular: Rhythm Regular Respiratory: Normal Breath Sounds, No Rales, No Rhonchi Extremity: Normal ROM Neurological/Psych: Oriented x3, Normal Speech Gait: With Assistance (cane) ED Course And Treatment O2 Sat by Pulse Oximetry: 96 (RA) Pulse Ox Interpretation: Normal - CT Scan/US CT- Maxillofacial Other Rad Studies (CT/US): Read By Radiologist, Radiology Report Reviewed CT/US Interpretation: PROCEDURE: CT scan maxillofacial skeleton 11/13/2017. HISTORY: Rule out mandibular fracture. COMPARISON: Comparison made with CT scan brain dated 09/13/[address] scan orbits 01/23/2017. TECHNIQUE: Contiguous axial CT images of the maxillofacial bones were obtained. Coronal and sagittal reformats were generated. Radiation dose: Total exam DLP = 835.81 mGy-cm. This CT exam was performed using one or more of the following dose reduction techniques: Automated exposure control, adjustment of the mA and/ or kV according to patient size, and/or use of iterative reconstruction technique. FINDINGS: Old left-sided nasal bone fracture deformity felt be present. NASAL BONES: Old left-sided anterior nasal bone fracture deformities felt present. There is fairly significant focal leftward deviation of the mid- posterior nasal septum. ORBITS: Orbits and contents unremarkable. The globes are intact. Changes of bilateral cataract surgery present. PARANASAL SINUSES/ MASTOIDS: Paranasal sinuses well-developed and currently well-aerated. There appears to be some minimal mucosal thickening right maxillary antrum. No other significant mucoperiosteal inflammatory changes or significant. No gross fluid levels. Minor mucosal thickening 1 or 2 ethmoid air cells. Mastoid air complexes are unremarkable. MAXILLA: There is a small fracture line extending through the left parasagittal anterior maxillary alveolus possibly adjacent to or through the socket for the central incisor tooth which is somewhat foreshortened in length though unchanged centrally from prior exam. There is more prominent appearance of the sockets suggesting loosening. The socket of the left lateral incisor is also widened about the root of this tooth suggesting loosening. Questionable loosening of the right canine root also demonstrating slight widening of the this socket. . . Poor dentition with apparent diffuse dental caries. Clinical correlation with dental exam. MANDIBLE / TEMPOROMANDIBULAR JOINTS: There is a fracture of the neck of the right aspect of the mandible with slight proximal distraction with medial location of the distal of neck and body and lateral displacement of the smaller condylar neck fragment. SKULL BASE: Unremarkable. TEMPORAL BONES: Middle ears and mastoid grossly unremarkable. OTHER FINDINGS: None. IMPRESSION: There is a fracture at the level of the neck of the right aspect of the mandible with slight proximal distraction and displacement of the fragments as described. There also appears to be a short fracture line seen traversing the left parasagittal anterior maxillary alveolus of possibly extending through the socket of the left incisor tooth which may be lucent. Questionable loosening of the left lateral incisor and right canine. Poor dentition as described. Changes of bilateral cataract surgery Laceration - Laceration Repair laceration below chin Wound Length (In cm): 2 cm Description Of Wound: Linear Wound Cleansed With: Betadine, Sterile Saline Anesthesia: Lidocaine 2%, With Epi Wound Examination: Irrigated With Saline, No FB With Wound Exploration Wound Closure: Suture Suture Technique And Material Used: Interrupted, Nylon (3 (4-0)) Wound Complexity: Simple Medical Decision Making Medical Decision Making: Plan: -- CT - Maxillofacial Updates: After CT- Maxillofacial reading was obtained, case was discussed with fellow information technology technician at [facility] general manager land department Department. Pt has been cleared for discharge. Pt has been discharged with prescription for abx and instructed to start a liquid diet. Pt has been instructed to follow up at. [facility] tomorrow morning, pt understands. Disposition - Disposition Referrals: [facility] [Provider Group] Disposition: HOME/ ROUTINE Disposition Time: 14:30 Condition: GOOD Additional Instructions: ASHER BUENO, thank you for letting us take care of you today. The emergency medical care you received today was directed at your acute symptoms. If you were prescribed any medication, please fill it and take as directed. It may take several days for your symptoms to resolve. Return to the Emergency Department if your symptoms worsen, do not improve, or if you have any other problems. Please contact your doctor or call one of the physicians/clinics you have been referred to that are listed on the Patient Visit Information form that is included in your discharge packet. Bring any paperwork you were given at discharge with you along with any medications you are taking to your follow up visit. Our treatment cannot replace ongoing medical care by a primary care provider outside of the emergency department. Thank you for allowing the [facility] team to be part of your care today. You are going to follow up with the oral surgeons at [facility]. Please call them tomorrow morning to be seen. They are expecting you. At this time, please start a liquid diet. Prescriptions: Clindamycin [Cleocin] 300 mg PO Q8 #21 cap Instructions: Jaw Fracture (DC) Forms: [facility] (Filipino) - Clinical Impression Clinical Impression: Jaw fracture, Chin laceration - Scribe Statement The provider has reviewed the documentation as recorded by the Bri Givens Provider Attestation: All medical record entries made by the Sukiibsade were at my direction and personally dictated by me. I have reviewed the chart and agree that the record accurately reflects my personal performance of the history, physical exam, medical decision making, and the department course for this patient. I have also personally directed, reviewed, and agree with the discharge instructions and disposition.
--- NOTE | 2017-11-19 19:40 | CARD ---
APPROVED REPORT EKG Measurement Heart [id number] <Conclusion> Normal sinus rhythm Normal ECG
== END 2017-11-13 15:51 | disposition home or self-care (01) ==
LOC: C.ER 10:59
DX: S02.609A Fracture of mandible, unspecified, initial encounter for closed fracture (principal); S01.81XA Laceration without foreign body of other part of head, initial encounter; W01.0XXA Fall on same level from slipping, tripping and stumbling without subsequent striking against object, initial encounter

== ENCOUNTER 2017-11-18 15:15 | Inpatient (IN) | payer MEDICARE, BC ==
[2017-11-18 15:16] VITALS: BMI 23.6
--- NOTE | 2017-11-18 16:22 | C.PDOC ---
History Of Present Illness 77 year old male brought to the ED by ambulance from his PMD's office for evaluation. Patient was seen in [facility] five days ago and diagnosed with fractures to his right mandible and right maxilla after he sustained a fall. Patient was instructed to follow up with OM[facility] at [facility], but states he has been unable to secure a follow up appointment. He also admits to feeling weak and has only been able to tolerate PO liquids at home. Patient states he has been compliant with prescribed antibiotics. He denies fever, chills, new injuries. Time Seen by Provider: 11/18/17 15:31 Chief Complaint (Nursing): Medical Clearance History Per: Patient History/Exam Limitations: no limitations Onset/Duration Of Symptoms: Days Current Symptoms Are (Timing): Still Present Severity: Mild Reports Recently: Treated By A Physician Additional History Per: Patient, EMS Past Medical History Reviewed: Historical Data, Nursing Documentation, Vital Signs Vital Signs: Last Vital Signs Temp 98.4 F 11/20/17 09:16 Pulse 59 L 11/20/17 09:16 Resp 20 11/20/17 09:16 BP 172/96 H 11/20/17 09:16 Pulse Ox 99 11/20/17 09:16 - Medical History PMH: Anxiety, Atrial Fibrillation, Cardia Arrhythmia (atrial flutter with reentrant pathways, SVT), Fractures (LOW BACK), HTN, Hypercholesterolemia, Peripheral Edema, TIA Surgical History: Carotid Endarterectomy (RIGHT), Endoscopy, Tonsillectomy - [facility] Procedures ENDOSC POLYPECTOMY OF LG INTEST (09/08/14) REPAIR SCALP SKIN, EXTERNAL APPROACH (09/14/17) Family History: States: No Known Family Hx - Social History Hx Tobacco Use: No Hx Alcohol Use: Yes (occasional) Hx Substance Use: No - Immunization History Hx Tetanus Toxoid Vaccination: Yes (1 month ago per pt) Hx Influenza Vaccination: Yes Hx Pneumococcal Vaccination: Yes Review Of Systems Constitutional: Positive for: Weakness. Negative for: Fever, Chills Cardiovascular: Negative for: Chest Pain Respiratory: Negative for: Shortness of Breath Gastrointestinal: Negative for: Nausea, Vomiting, Abdominal Pain, Diarrhea Musculoskeletal: Positive for: Other (recently diagnosed with right mandible and right maxilla fracture ) Skin: Negative for: Rash Neurological: Negative for: Headache, Dizziness Physical Exam - Physical Exam Appears: Well, Non-toxic, Other (elderly, frail appearing) Skin: Warm, Dry, Ecchymosis (scattered to chest and bilateral arms ) Head: Tenderness (at angle of right mandible), Swelling (at right mandible) Eye(s): bilateral: Normal Inspection Oral Mucosa: Dry Tongue: Other (dry) Neck: Supple Cardiovascular: Rhythm Regular Respiratory: Normal Breath Sounds, No Rales, No Rhonchi, No Wheezing Gastrointestinal/Abdominal: Normal Exam, Bowel Sounds, Soft, No Tenderness Extremity: Normal ROM, No Tenderness, No Pedal Edema, No Deformity Extremity: Bilateral: Atraumatic, Normal Color And Temperature, Normal ROM Neurological/Psych: Oriented x3 Gait: Steady ED Course And Treatment - Laboratory Results Result Diagrams: 11/18/17 16:24 11/18/17 16:24 O2 Sat by Pulse Oximetry: 95 (on RA) Pulse Ox Interpretation: Normal Progress Note: Bloodwork, UA ordered and reviewed. Patient given IV NS bolus, PO tylenol. As per PMD, patient apparently has been unable to carte for himself , lives alone, likely needs NH/rehab placement. - Physician Consult Information Physician Contacted: Vi Srinivasan Outcome Of Conversation: Discussed patient with Dr. Srinivasan (covers for patient's PMD), agrees with admission for failure to thrive, dehydration, mandible fracture, need for NH placement. Call placed to Dr. Sexton ([facility]) to discuss patient, pending call back. Disposition - Disposition Disposition: HOSPITALIZED Disposition Time: 17:28 Condition: STABLE - Clinical Impression Clinical Impression: Failure to thrive, Dehydration, Mandible fracture - Scribe Statement The provider has reviewed the documentation as recorded by the Scribe (Yuly Ann) Provider Attestation: All medical record entries made by the Scribe were at my direction and personally dictated by me. I have reviewed the chart and agree that the record accurately reflects my personal performance of the history, physical exam, medical decision making, and the department course for this patient. I have also personally directed, reviewed, and agree with the discharge instructions and disposition. Decision To Admit - Pt Status Changed To: Hospital Disposition Of: Inpatient - Admit Certification Admit to Inpatient:: After my assessment, the patient will require hospitalization for at least two midnights. This is because of the severity of symptoms shown, intensity of services needed, and/or the medical risk in this patient being treated as an outpatient. - InPatient: Physician Admission Certification: I certify that this patient requires 2 or more midnights of care for the following reason:: see notes - . Bed Request Type: Regular Admitting Physician: Vi Srinivasan Patient Diagnosis: Failure to thrive, Dehydration, Mandible fracture
[2017-11-18] MEDS ORDERED: Sodium Chloride 0.9% 500 ML IV ONE (16:24)
[2017-11-18 16:32] LABS: BASO # 0.1 K/uL (0.0-0.2); BASO % 0.6 % (0.0-2.0); EOS # 0.1 K/uL (0.0-0.7); EOS % 0.6 % (0.0-4.0); HEMOGLOBIN 16.6 g/dL (12.0-18.0); LYMPH # 1.7 K/uL (1.0-4.3); LYMPH % 16.8 % (20.0-40.0); MEAN CELL VOLUME 91.8 fL (80.0-94.0); MEAN CORPUSCULAR HEMOGLOBIN 31.5 pg (27.0-31.0); MEAN CORPUSCULAR HGB CONC 34.3 g/dL (33.0-37.0); MEAN PLATELET VOLUME 7.7 fL (7.2-11.7); MONO # 0.6 K/uL (0.0-0.8); MONO % 5.7 % (0.0-10.0); NEUT % 76.3 % (50.0-75.0); NRBC % 0.2 % (0.0-2.0); RBC 5.27 Mil/uL (4.40-5.90)
[2017-11-18 16:36] LABS: WHITE BLOOD COUNT 10.4 K/uL (4.8-10.8)
[2017-11-18 16:40] LABS: ALBUMIN 4.3 g/dL (3.5-5.0); BLOOD UREA NITROGEN 25 mg/dL (9-20); CALCIUM 9.5 mg/dl (8.6-10.4); GFR AFRICAN-AMERICAN > 60; GFR NON-AFRICAN AMERICAN > 60
[2017-11-18 16:41] LABS: ALB/GLOB RATIO 1.3 (1.0-2.1); ALT/SGPT 30 U/L (21-72); AST/SGOT 29 U/L (17-59)
[2017-11-19] MEDS: Enoxaparin 40 mg Syringe SC SCH (09:22)
[2017-11-19] MEDS: Dextrose 5%/0.45% NS 1,000 ML IV SCH ×2 (10:56→22:02)
--- NOTE | 2017-11-19 12:51 | CT ---
PROCEDURE: CT MAXILLOFACIAL BONES WITHOUT CONTRAST HISTORY: s/p fall COMPARISON: 11/13/2017 TECHNIQUE: Contiguous axial CT images of the maxillofacial bones were obtained. Coronal and sagittal reformats were generated. Radiation dose: Total exam DLP = 831.34 mGy-cm. This CT exam was performed using one or more of the following dose reduction techniques: Automated exposure control, adjustment of the mA and/or kV according to patient size, and/or use of iterative reconstruction technique. FINDINGS: NASAL BONES: Unremarkable. ORBITS: Unremarkable. PARANASAL SINUSES/ MASTOIDS: Clear. MAXILLA: Unremarkable. MANDIBLE/ TEMPOROMANDIBULAR JOINTS: Stable right mandibular fracture with medial displacement of the distal aspect of the fracture and preservation of the temporomandibular joint. Nondisplaced fracture left felisha mandible near the midline. Dental disease, chronic is also identified. SKULL BASE: Unremarkable. TEMPORAL BONES: Middle ears and mastoid grossly unremarkable. OTHER FINDINGS: None. IMPRESSION: Stable mandibular fractures as described. No new/ acute findings
--- NOTE | 2017-11-19 14:05 | CP.PCM.HP ---
History of Present Illness - History of Present Illness History of Present Illness: 77 year old male brought to the ED by ambulance from his PMD's office for evaluation. Patient was [facility] in [facility] days ago and diagnosed with fractures to his right mandible and right maxilla after he sustained a fall. Patient was instructed to follow up with [facility] at [facility], but states he has been unable to secure a follow up appointment. He also admits to feeling weak and has only been able to tolerate PO liquids at home. Patient states he has been compliant with prescribed antibiotics. He denies fever, chills, new injuries. Present on Admission - Present on Admission Any Indicators Present on Admission: No History of DVT/PE: No History of Uncontrolled Diabetes: No Urinary Catheter: No Decubitus Ulcer Present: No Review of Systems - Review of Systems All systems: reviewed and no additional remarkable complaints except (As mentioned in HPI) Past Patient History - Infectious Disease Hx of Infectious Diseases: None - Tetanus Immunizations Tetanus Immunization: Up to Date - Past Medical History & Family History Past Medical History?: Yes - Past Social History Smoking Status: Unknown If Ever Smoked - CARDIAC Hx Hypercholesterolemia: Yes Hx Hypertension: Yes - PULMONARY Hx Respiratory Disorders: No - NEUROLOGICAL Hx Transient Ischemic Attacks (TIA): Yes - HEENT Hx HEENT Problems: Yes Hx Cataracts: Yes (B/L) - ENDOCRINE/METABOLIC Hx Endocrine Disorders: No - INTEGUMENTARY Hx Dermatological Problems: No - MUSCULOSKELETAL/RHEUMATOLOGICAL Hx Falls: No - GASTROINTESTINAL Hx Gastrointestinal Disorders: Yes Hx Gastroesophageal Reflux: Yes Hx Ulcer: Yes - GENITOURINARY/GYNECOLOGICAL Hx Genitourinary Disorders: Yes (NEUROGENIC BLADDER) Hx Incontinence: Yes 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) - PSYCHIATRIC Hx Anxiety: Yes Hx Substance Use: No - SURGICAL HISTORY Hx Carotid Endarterectomy: Yes (RIGHT) Hx Tonsillectomy: Yes - ANESTHESIA Hx Anesthesia: Yes Hx Anesthesia Reactions: No Hx Malignant Hyperthermia: No Meds Allergies/Adverse Reactions: Allergies Allergy/AdvReac Type Severity Reaction Status Date / Time Penicillins Allergy RASH Verified 11/18/17 15:29 Physical Exam - Head Exam Head Exam: NORMAL INSPECTION - Eye Exam Eye Exam: Normal appearance - ENT Exam ENT Exam: Mucous Membranes Moist - Respiratory Exam Respiratory Exam: Clear to Auscultation Bilateral - Cardiovascular Exam Cardiovascular Exam: REGULAR RHYTHM, +S1, +S2 - GI/Abdominal Exam GI & Abdominal Exam: Normal Bowel Sounds, Soft - Extremities Exam Extremities exam: Positive for: normal inspection Results - Vital Signs Recent Vital Signs: Last Vital Signs Temp 97.7 F 11/19/17 07:00 Pulse 64 11/19/17 07:00 Resp 20 11/19/17 07:00 BP 169/75 H 11/19/17 07:00 Pulse Ox 95 11/19/17 07:00 - Labs Result Diagrams: 11/18/17 16:24 11/18/17 16:24 Labs: Laboratory Results - last 24 hr 11/18/17 11/18/17 16:24 16:24 WBC 10.4 D RBC 5.27 Hgb 16.6 Hct 48.4 MCV 91.8 MCH 31.5 H MCHC 34.3 RDW 14.0 Plt Count 378 D MPV 7.7 Neut % (Auto) 76.3 H Lymph % (Auto) 16.8 L [place] % (Auto) 5.7 Eos % (Auto) 0.6 Baso % (Auto) 0.6 Neut # (Auto) 8.0 H Lymph # (Auto) 1.7 [place] # (Auto) 0.6 Eos # (Auto) 0.1 Baso # (Auto) 0.1 Sodium 144 Potassium 5.1 Chloride 104 Carbon Dioxide 29 Anion Gap 16 BUN 25 H Creatinine 1.0 Est GFR ( Amer) > 60 Est GFR (Non-Af Amer) > 60 Random Glucose 114 H Calcium 9.5 Total Bilirubin 1.3 AST 29 ALT 30 Alkaline Phosphatase 89 Total Protein 7.7 Albumin 4.3 Globulin 3.4 Albumin/Globulin Ratio 1.3 Assessment & Plan (1) Mandible fracture Status: Acute (2) Chin laceration Status: Acute (3) Fall as cause of accidental injury at home as place of occurrence Status: Acute (4) Jaw fracture Status: Acute (5) UTI (urinary tract infection) Status: Acute - Assessment and Plan (Free Text) Plan: Continue clindamycin [facility] consult PT/OT evaluation Patient would need placement in a rehab CT to further evaluate mandibular fracture Chin wound appears clean with sutures DVT/GI prophylaxis
[2017-11-20 07:47] LABS: SQUAMOUS EPITHIAL < 1 /hpf (0-5); URINE BACTERIA RARE (<OCC); URINE BILIRUBIN NEGATIVE (NEGATIVE); URINE BLOOD 1+ (NEGATIVE); URINE CLARITY Hazy (Clear); URINE COLOR Yellow (YELLOW); URINE GLUCOSE (UA) 1+ mg/dL (Normal); URINE LEUKOCYTE ESTERASE 3+ Leu/uL (Negative); URINE PROTEIN 1+ mg/dL (NEGATIVE); URINE UROBILINOGEN NORMAL mg/dL (0.2-1.0)
[2017-11-20] MEDS ORDERED: Bisacodyl 5mg EC Tab PO ONE (09:08)
[2017-11-20 09:15] VITALS: RESP 20
[2017-11-20] MEDS: Enoxaparin 40 mg Syringe SC SCH (10:05)
[2017-11-20] MEDS: Dextrose 5%/0.45% NS 1,000 ML IV SCH ×2 (13:41→14:55)
--- NOTE | 2017-11-20 16:25 | CP.PCM.PN ---
Subjective - Date & Time of Evaluation Date of Evaluation: 11/20/17 Time of Evaluation: 16:25 - Subjective Subjective: Patient seen and examined No events overnight Reports his mandibular pain to have significantly improved Objective - Vital Signs/Intake and Output Vital Signs (last 24 hours): Temp Pulse Resp BP Pulse Ox 98.4 F 59 L 20 172/96 H 95 11/20/17 09:16 11/20/17 09:16 11/20/17 09:16 11/20/17 09:16 11/20/17 09:57 Intake and Output: 11/20/17 11/20/17 06:59 18:59 Intake Total 640 640 Output Total 200 Balance 440 640 - Medications Medications: Current Medications Acetaminophen (Tylenol 325mg Tab) 650 mg PO Q6 PRN PRN Reason: Pain Clindamycin HCl (Cleocin) 300 mg PO Q8H [facility] PRN Reason: Protocol Last Admin: 11/20/17 13:35 Dose: 300 mg Docusate Sodium (Colace) 100 mg PO BID [facility] Last Admin: 11/20/17 10:05 Dose: 100 mg Enoxaparin Sodium (Lovenox) 40 mg SC DAILY [facility] Last Admin: 11/20/17 10:05 Dose: 40 mg Dextrose/Sodium Chloride (Dextrose 5%/0.45% Ns 1000 Ml) 1,000 mls @ 80 mls/hr IV .[id number] [facility] Last Admin: 11/20/17 14:55 Dose: 80 mls/hr Magnesium Hydroxide (Milk Of Magnesia) 30 ml PO [facility] Rosuvastatin Calcium (Crestor) 5 mg PO [facility] Last Admin: 11/19/17 21:28 Dose: 5 mg - Labs Labs: 11/18/17 16:24 11/18/17 16:24 - Head Exam Head Exam: NORMAL INSPECTION - Eye Exam Eye Exam: Normal appearance - ENT Exam ENT Exam: Mucous Membranes Moist - Respiratory Exam Respiratory Exam: Clear to Ausculation Bilateral - Cardiovascular Exam Cardiovascular Exam: REGULAR RHYTHM - GI/Abdominal Exam GI & Abdominal Exam: Soft, Normal Bowel Sounds - Extremities Exam Extremities Exam: Normal Inspection - Neurological Exam Neurological Exam: Alert, Oriented x3 Assessment and Plan (1) Mandible fracture Status: Acute (2) Chin laceration Status: Acute (3) Fall as cause of accidental injury at home as place of occurrence Status: Acute (4) Hyperlipidemia Status: Acute (5) UTI (urinary tract infection) Status: Acute - Assessment and Plan (Free Text) Plan: CT results reviewedmandibular fracture is stable Patient is refusing to go to rehab There is no [facility] surgeon available to do in-house consult Patient is refusing to go to rehab Upon discharge patient is advised to follow-up with [facility] Patient is refusing home services As per patient he has a friend that comes and helps him out and that is enough for him Continue supportive care Discharge planning in a.m.
[2017-11-20] MEDS ORDERED: Magnesium Hydroxide Susp 30 ml UD PO SCH (22:00)
[2017-11-20 23:26] VITALS: TEMP 98.1
[2017-11-21] MEDS: Dextrose 5%/0.45% NS 1,000 ML IV SCH ×2 (00:28→11:53)
[2017-11-21 08:33] VITALS: BP 125/76; PULSE 62; O2SAT 96
[2017-11-21] MEDS: Enoxaparin 40 mg Syringe SC SCH (09:13)
--- NOTE | 2017-11-21 13:11 | CP.PCM.PN ---
Subjective - Date & Time of Evaluation Date of Evaluation: 11/21/17 Time of Evaluation: 13:06 - Subjective Subjective: PT CLEARED FOR D/C HOME TODAY PER DR. FONSECA. I DISCUSSED WITH THE PT AGAIN THE BENEFITS OF [facility] BUT HE ADAMENTLY REFUSES STATING "I'VE BEEN TO 4 REHABS IN THE LAST FEW MONTHS AND I'M BETTER OFF AT HOME." PT ALSO VERBALIZED TO ME THAT HE FEELS "SAFE AT HOME" AND ONLY WANTS TO GO HOME. PT ADMITS TO HAVING A FRIEND THAT LIVES A FEW BLOCKS AWAY THAT HELPS HIM AND VISITS HIM ONCE A DAY. PT HAS BEEN ARRANGED FOR HOME SERVICES BY [facility] ALTHOUGH HE STATES THAT THEY WON'T BE ABLE TO PROVIDE HIM WITH WHAT HE WANTS, WHICH IS 24 HOUR CARE 7 DAYS A WEEK. I ENCOURAGED PT TO RECONSIDER GAVIN AND HE IS AWARE THAT HE CAN CHANGE HIM MIND ONCE HOME AND NOTIFY HIS PMD FOR FURTHER ASSISTANCE. PER DR. FONSECA, PT TO CONTINUE CLEOCIN PO X3 MORE DAYS, WHICH PT STATES HE ALREADY HAS RX AT HOME FROM [facility]. RX REFILL GIVEN FOR LIPITOR AND NEW RX FOR FLORASTOR. DISCUSSED AT LENGTH FOR PT TO CALL AND MAKE AN APPT WITH [facility] OUTPATIENT.SEE BELOW FOR D/C INSTRUCTIONS. SW TO ARRANGE TRANSPORTATION. NO FURTHER ORDERS. -FOLLOW UP WITH DR. FONSECA OR YOUR PRIMARY DOCTOR IN THE OFFICE WITHIN 1 WEEK OF DISCHARGE---CALL THE OFFICE TO MAKE AN APPOINTMENT. -CONTINUE ALL HOME MEDICATIONS USUAL. CONTINUE TAKING THE CLEOCIN (THE ANTIBIOTIC) FOR ANOTHER 3 DAYS. YOUR LIPITOR HAS BEEN REFILLED. -NEW PRESCRIPTIONS INCLUDE: 1) FLORASTOR 250 MG---THIS IS A VITAMIN FOR YOUR GUT WHILE YOU ARE ON ANTIBIOTICS---TAKE 1 TABLET BY MOUTH TWICE A DAY FOR 5 DAYS. -YOU HAVE ALREADY BEEN REFERRED TO [facility] FOR HOME CARE SERVICES SINCE YOU OPT TO NOT GO TO SUB[facility] REHAB. [facility] WILL CONTACT YOU TO DETERMINE THE TIME AND DAY TO START SERVICES. IF YOU FEEL LIKE YOU NEED MORE HOURS FOR HOME HEALTH SERVICES, CONTACT YOUR DOCTOR. -MAKE SURE YOU CALL AND MAKE AN APPOINTMENT WITH AN "ORAL MAXILLOFACIAL SURGEON " FOR YOUR FACIAL/JAW FRACTURE. THE FOLLOWING SPECIALISTS IN THE AREA MAY BE ABLE TO SEE YOU, BUT YOU MUST CALL THEM TO SET UP AN APPOINTMENT: 1) DR. LINDER: [address], [place]; [phone] 2) [address] ROMERO: [address], [place]; [phone] 3) [facility]: [address] [place] [address]; 4) [facility]: [address], [place]; 5) DR. LAY: [address], [place]; [phone] -IF YOU HAVE ANY FURTHER QUESTIONS OR CONCERNS, CONTACT DR. FONSECA'S OFFICE. Objective - Vital Signs/Intake and Output Vital Signs (last 24 hours): Temp Pulse Resp BP Pulse Ox 98.1 F 62 20 125/76 96 11/21/17 08:32 11/21/17 08:32 11/21/17 08:32 11/21/17 08:32 11/21/17 08:32 Intake and Output: 11/21/17 11/21/17 06:59 18:59 Intake Total 880 Balance 880 - Medications Medications: Current Medications Acetaminophen (Tylenol 325mg Tab) 650 mg PO Q6 PRN PRN Reason: Pain Clindamycin HCl (Cleocin) 300 mg PO Q8H [facility] PRN Reason: Protocol Last Admin: 11/21/17 05:49 Dose: 300 mg Docusate Sodium (Colace) 100 mg PO BID [facility] Last Admin: 11/21/17 09:14 Dose: Not Given Enoxaparin Sodium (Lovenox) 40 mg SC DAILY [facility] Last Admin: 11/21/17 09:13 Dose: 40 mg Dextrose/Sodium Chloride (Dextrose 5%/0.45% Ns 1000 Ml) 1,000 mls @ 80 mls/hr IV .[id number] [facility] Last Admin: 11/21/17 11:53 Dose: Not Given Magnesium Hydroxide (Milk Of Magnesia) 30 ml PO HS [facility] Last Admin: 11/20/17 21:19 Dose: 30 ml Rosuvastatin Calcium (Crestor) 5 mg PO HS [facility] Last Admin: 11/20/17 21:19 Dose: 5 mg - Labs Labs: 11/18/17 16:24 11/18/17 16:24
--- NOTE | 2017-11-21 18:32 | CP.PCM.DIS ---
Provider - Provider Date of Admission: 11/18/17 17:28 Attending physician: Vi Srinivasan MD Time Spent in preparation of Discharge (in minutes): 25 Diagnosis - Discharge Diagnosis (1) Mandible fracture Status: Acute (2) Chin laceration Status: Acute (3) Fall as cause of accidental injury at home as place of occurrence Status: Acute (4) Hyperlipidemia Status: Acute (5) UTI (urinary tract infection) Status: Acute Hospital Course - Lab Results Lab Results: Micro Results 11/20/17 17:02 Urine,Clean Catch Urine Culture - Preliminary Gram Positive Cocci Most Recent Lab Values WBC 10.4 K/uL (4.8-10.8) D 11/18/17 16:24 RBC 5.27 Mil/uL (4.40-5.90) 11/18/17 16:24 Hgb 16.6 g/dL (12.0-18.0) 11/18/17 16:24 Hct 48.4 % (35.0-51.0) 11/18/17 16:24 MCV 91.8 fL (80.0-94.0) 11/18/17 16:24 MCH 31.5 pg (27.0-31.0) H 11/18/17 16:24 MCHC 34.3 g/dL (33.0-37.0) 11/18/17 16:24 RDW 14.0 % (11.5-14.5) 11/18/17 16:24 Plt Count 378 K/uL (130-400) D 11/18/17 16:24 MPV 7.7 fL (7.2-11.7) 11/18/17 16:24 Neut % (Auto) 76.3 % (50.0-75.0) H 11/18/17 16:24 Lymph % (Auto) 16.8 % (20.0-40.0) L 11/18/17 16:24 Real % (Auto) 5.7 % (0.0-10.0) 11/18/17 16:24 Eos % (Auto) 0.6 % (0.0-4.0) 11/18/17 16:24 Baso % (Auto) 0.6 % (0.0-2.0) 11/18/17 16:24 Neut # (Auto) 8.0 K/uL (1.8-7.0) H 11/18/17 16:24 Lymph # (Auto) 1.7 K/uL (1.0-4.3) 11/18/17 16:24 Real # (Auto) 0.6 K/uL (0.0-0.8) 11/18/17 16:24 Eos # (Auto) 0.1 K/uL (0.0-0.7) 11/18/17 16:24 Baso # (Auto) 0.1 K/uL (0.0-0.2) 11/18/17 16:24 Sodium 144 mmol/L (132-148) 11/18/17 16:24 Potassium 5.1 mmol/L (3.6-5.2) 11/18/17 16:24 Chloride 104 mmol/L (98-107) 11/18/17 16:24 Carbon Dioxide 29 mmol/L (22-30) 11/18/17 16:24 Anion Gap 16 (10-20) 11/18/17 16:24 BUN 25 mg/dL (9-20) H 11/18/17 16:24 Creatinine 1.0 mg/dL (0.8-1.5) 11/18/17 16:24 Est GFR ( Amer) > 60 11/18/17 16:24 Est GFR (Non-Af Amer) > 60 11/18/17 16:24 Random Glucose 114 mg/dL (75-110) H 11/18/17 16:24 Calcium 9.5 mg/dl (8.6-10.4) 11/18/17 16:24 Total Bilirubin 1.3 mg/dL (0.2-1.3) 11/18/17 16:24 AST 29 U/L (17-59) 11/18/17 16:24 ALT 30 U/L (21-72) 11/18/17 16:24 Alkaline Phosphatase 89 U/L (38-126) 11/18/17 16:24 Total Protein 7.7 g/dL (6.3-8.3) 11/18/17 16:24 Albumin 4.3 g/dL (3.5-5.0) 11/18/17 16:24 Globulin 3.4 gm/dL (2.2-3.9) 11/18/17 16:24 Albumin/Globulin Ratio 1.3 (1.0-2.1) 11/18/17 16:24 Urine Color Yellow (YELLOW) 11/20/17 07:05 Urine Clarity Hazy (Clear) 11/20/17 07:05 Urine pH 6.0 (5.0-8.0) 11/20/17 07:05 Ur Specific [place] 1.005 (1.003-1.030) 11/20/17 07:05 Urine Protein 1+ mg/dL (NEGATIVE) H 11/20/17 07:05 Urine Glucose (UA) 1+ mg/dL (Normal) H 11/20/17 07:05 Urine Ketones Negative mg/dL (NEGATIVE) 11/20/17 07:05 Urine Blood 1+ (NEGATIVE) H 11/20/17 07:05 Urine Nitrate Negative (NEGATIVE) 11/20/17 07:05 Urine Bilirubin Negative (NEGATIVE) 11/20/17 07:05 Urine Urobilinogen Normal mg/dL (0.2-1.0) 11/20/17 07:05 Ur Leukocyte Esterase 3+ Moise/uL (Negative) H 11/20/17 07:05 Urine WBC (Auto) 71 /hpf (0-5) H 11/20/17 07:05 Urine RBC (Auto) 3 /hpf (0-3) 11/20/17 07:05 Ur Squamous Epith Cells < 1 /hpf (0-5) 11/20/17 07:05 Urine Bacteria Rare (<OCC) 11/20/17 07:05 - Hospital Course Hospital Course: Patient presented to the hospital status post fall. He lives alone. CT shows stable mandibular fracture. Patient could not be evaluated by [facility] surgery since no one is available to do the consult on a stable fracture. Patient was advised to go to rehab but he refused. Patient also refused to accept home health aid. Patient was discharged home on his request and is referred to [facility] as outpatient Discharge Exam - Head Exam Head Exam: NORMAL INSPECTION - Eye Exam Eye Exam: Normal appearance - Respiratory Exam Respiratory Exam: Clear to PA & Lateral - Cardiovascular Exam Cardiovascular Exam: REGULAR RHYTHM - GI/Abdominal Exam GI & Abdominal Exam: Normal Bowel Sounds - Back Exam Back exam: NORMAL INSPECTION - Neurological Exam Neurological exam: Alert, Oriented x3 Discharge Plan - Discharge Medications Prescriptions: Saccharomyces Boulardii [Florastor] 250 mg PO BID #10 capsule Saccharomyces Boulardi [Florastor] 250 mg PO BID #10 cap Atorvastatin [Lipitor] 20 mg PO HS #30 tab - Follow Up Plan Condition: STABLE Disposition: HOME/ ROUTINE Instructions: Dehydration, Adult (DC), Jaw Fracture (DC), Failure to Thrive in an Older Adult (DC) Additional Instructions: -FOLLOW UP WITH DR. SRINIVASAN OR YOUR PRIMARY DOCTOR IN THE OFFICE WITHIN 1 WEEK OF DISCHARGE---CALL THE OFFICE TO MAKE AN APPOINTMENT. -CONTINUE ALL HOME MEDICATIONS USUAL. CONTINUE TAKING THE CLEOCIN (THE ANTIBIOTIC) FOR ANOTHER 3 DAYS. YOUR LIPITOR HAS BEEN REFILLED. -NEW PRESCRIPTIONS INCLUDE: 1) FLORASTOR 250 MG---THIS IS A VITAMIN FOR YOUR GUT WHILE YOU ARE ON ANTIBIOTICS---TAKE 1 TABLET BY MOUTH TWICE A DAY FOR 5 DAYS. -YOU HAVE ALREADY BEEN REFERRED TO [facility] FOR HOME CARE SERVICES SINCE YOU OPT TO NOT GO TO SUBACUTE REHAB. [facility] WILL CONTACT YOU TO DETERMINE THE TIME AND DAY TO START SERVICES. IF YOU FEEL LIKE YOU NEED MORE HOURS FOR HOME HEALTH SERVICES, CONTACT YOUR DOCTOR. -MAKE SURE YOU CALL AND MAKE AN APPOINTMENT WITH AN "ORAL MAXILLOFACIAL SURGEON " FOR YOUR FACIAL/JAW FRACTURE. THE FOLLOWING SPECIALISTS IN THE AREA MAY BE ABLE TO SEE YOU, BUT YOU MUST CALL THEM TO SET UP AN APPOINTMENT: 1) DR. LINDER: [address], [place]; [phone] 2) [address] ROMERO: [address], [place]; [phone] 3) [facility]: [address] [place] [address]; 4) [facility]: [address], [place]; [phone] 5) [address] LAY: [address], [place]; [phone] -IF YOU HAVE ANY FURTHER QUESTIONS OR CONCERNS, CONTACT DR. SRINIVASAN'S OFFICE. Referrals: Vi Srinivasan MD [Staff Provider] -
== END 2017-11-21 16:34 | disposition home or self-care (01) | DRG 641 ==
LOC: C.ER 15:15 → C.9E 17:28 → C.3T 18:41
PROVIDERS: ADMIT Internal Medicine Critical Care Medicine; ATTEND Internal Medicine Critical Care Medicine
DX: R62.7 Adult failure to thrive (principal); N39.0 Urinary tract infection, site not specified; E86.0 Dehydration; I10 Essential (primary) hypertension; I48.91 Unspecified atrial fibrillation; E78.5 Hyperlipidemia, unspecified; N40.0 Benign prostatic hyperplasia without lower urinary tract symptoms; Z86.73 Personal history of transient ischemic attack (TIA), and cerebral infarction without residual deficits; S02.609G Fracture of mandible, unspecified, subsequent encounter for fracture with delayed healing; W19.XXXD Unspecified fall, subsequent encounter